=== PATIENT | female | born 1945 | race Caucasian/White ===

== ENCOUNTER 2017-01-25 19:58 | Inpatient (IN) | payer MEDICARE, MEDICAID ==
[~2017-01-25] VITALS: Ht 162.6 cm; Wt 73.7 kg
[~2017-01-25 19:58] MED LIST: ACET-461 PO; ACHD5005 PO; ALBU17AE3 IH; ALBU2.5V4 IH; ALBU2.5V52 INH; ALBU8.5H2; ALBU8.5H2 INH; ASCO-262 PO; ASP325T PO; AZIT250T PO; BACL10TA PO; BENZ100C18 PO; BISM262O27 PO; BUDE6HFA INH; CALCIUM PO; CEPH-507 PO; CLC500CT PO; CRAN1TAB5 PO; DOXY100C2 PO; FLC100T1 PO; FLUT1DIS26 IH; FLUT1DIS27 IH; FLUT9.9S; GABA-486 PO; GBPN100C PO; HYDR-757 PO; HYDR12.56 PO; IPRA3AMP11 INH; KETO-22 PO; LEVO500T69 PO; LEVO500T78 PO; LOPE2CAP PO; LORA10TA7 PO; LVF500T PO; METH40VI2 IV; METO-333 PO; METO25TA2 PO; MULT-35 PO; MULT-963 PO; NAPR-243 PO; NAPR-689 PO; NEBU1EAC10 MC; OMEP20CA12 PO; OXYB5TAB9 PO; PHEN200T27 PO; PIPE4.5V IV; PIPERACILLIN/TAZOBACTAM 4.5 GM/NS100 ML IVPB IV ONE; PIPERACILLIN/TAZOBACTAM 4.5 GM/NS100 ML IVPB IV SCH; PRED20TA PO; PROBIOTICS PO; TRAM50TA2 PO; TRIM100T PO; TYLENOL 500 MG PO
[2017-01-25] MEDS ORDERED: NS IV 1000 ML 1,000 ML IV ONE (20:08)
--- NOTE | 2017-01-25 20:13 | ED Chest Pain ---
General Chief Complaint: Chest Pain Stated Complaint: CHEST PAIN SOA Source: patient (LIMITED HISTORIAN DUE TO EXPRESSIVE APHASIA), EMS, assisted records, old records History of Present Illness Time seen by provider: 19:58 Initial Comments PT ARRIVES VIA EMS FROM VIA [facility] [place] PT HAS BEEN SHORT OF BREATH ALL DAY BEGAN HAVING CHEST PAIN 20 MINUTES PRIOR TO ARRIVAL--POINTS TO MID CHEST AREA OF PAIN HEART RATE IN 150'S, O2 SATS 95% ON ROOM AIR, BP IN 90'S/70'S PT TOOK 325 MG ASA THIS AM, NO NTG GIVEN DUE TO LOW BP TEMP IS 100.5 ON ARRIVAL HERE PT STATES SHE HAS HAD A COUGH NO OTHER INFORMATION IS OBTAINABLE PCP: DR. CARPENTER Allergies and Home Medications Allergies Coded Allergies: levofloxacin (Verified Allergy, Mild, 08/14/16) cephalexin (Verified Allergy, Unknown, 08/14/16) menthol (Verified Allergy, Unknown, RASH, 01/26/17) zinc oxide (Unverified Adverse Reaction, Intermediate, 03/22/14) rash-from calmoseptine Home Medications Acetaminophen 500 Mg Tablet, 1,000 MG PO BID, (Reported) TAKES 2 (500MG) TABLETS Albuterol Sulfate 2.5 Mg/3 Ml Vial.neb, 2.5 MG IH Q6H PRN for DYSPENIA/ CONGESTION, (Reported) Ascorbate Calcium 500 Mg Tablet, 500 MG PO DAILY, #30 Prescribed by: JERARDO ARRIAGA on 08/28/16 1006 Aspirin 325 Mg Tab, 325 MG PO DAILY, (Reported) Baclofen 10 Mg Tablet, 10 MG PO TID, #60 Prescribed by: MAE HUERTAS on 09/03/168 Bismuth Subsalicylate 262 Mg/15 Ml Oral.susp, 1 TBS PO Q4H PRN for STOMACH UPSET , (Reported) Cranberry Conc/C/Bacill Coag 1 Each Tablet, 1 EACH PO BID, #60 Prescribed by: JERARDO ARRIAGA on 08/28/16 1006 Fluticasone Propionate 9.9 Ml Norris.susp, 1 SPRAY NA BID, (Reported) Fluticasone/Salmeterol 1 Each Blst.w.dev, 1 PUFF IH BID, (Reported) Gabapentin 100 Mg Capsule, 100 MG PO HS, (Reported) Loperamide HCl 2 Mg Capsule, 2 MG PO PRN PRN for DIARRHEA, (Reported) Loratadine 10 Mg Tablet, 10 MG PO DAILY, (Reported) Metoprolol Tartrate 25 Mg Tablet, 25 MG PO BID, (Reported) Multivitamin 1 Each Tablet, 1 TAB PO DAILY, (Reported) Tramadol HCl 50 Mg Tablet, 50 MG PO BID, #60 Prescribed by: MAE HUERTAS on 09/03/16 2148 Tramadol Hcl 50 Mg Tablet, 50 MG PO 1200,2000, (Reported) Trimethoprim 100 Mg Tablet, 100 MG PO HS, #30 Prescribed by: JERARDO ARRIAGA on 08/28/16 1006 Review of Systems Constitutional: No fever, other (VERY LIMITED) Respiratory: See HPI, Cough, Shortness of Air Cardiovascular: See HPI, Chest Pain Psychiatric/Neurological: Pre-Existing Deficit, Other (PT IS S/P CVA WITH EXPRESSIVE APHASIA, 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) Past Dnaiasa-Ncwsgv-Qwjwgx Hx Patient Social History Smoking Status: Unknown if Ever Smoked Former Smoker/When Quit: February 22, 2009 Recent Hopitalizations: Yes Immunizations Up To Date Tetanus Booster (TDap): More than 5yrs PED Vaccines UTD: Yes Date of Pneumonia Vaccine: March 13, 2013 Date of Influenza Vaccine: Jul 11, 2016 Seasonal Allergies Seasonal Allergies: Yes Surgeries HX Surgeries: Yes (abd adhesion removal surgery, LEFT CAROTID ENDARTERECTOMY) Surgeries: Abdominal, Vascular Surgery Respiratory Hx Respiratory Disorders: Yes Respiratory Disorders: Asthma, Chronic Bronchitis, COPD Cardiovascular Hx Cardiac Disorders: Yes (left carotid endarterectomy) Cardiac Disorders: Heart Attack, Hypertension, Peripheral Vascular Neurological Hx Neurological Disorders: Yes (CVA WITH RIGHT SIDED WEAKNESS, 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,WITH EXPRESSIVE APHASIA AND DYSPHAGIA , MEMORY PROBLEMS) Neurological Disorders: Dementia (?), Stroke Reproductive System Hx Reproductive Disorders: No Female Reproductive Disorders: Denies Genitourinary Hx Genitourinary Disorders: Yes (INCONTINENT) Genitourinary Disorders: Bladder Infection, UTI-Chronic Gastrointestinal Hx Gastrointestinal Disorders: Yes (DYSPHAGIA) Gastrointestinal Disorders: Chronic Diarrhea Musculoskeletal Hx Musculoskeletal Disorders: Yes (FALLS, LEFT SIDE WEAKNESS FROM CVA WITH RIGHT ARM/HAND CONTRACTURES) Musculoskeletal Disorders: Arthritis, Chronic Back Pain, Fractures, Contracture Endocrine Hx Endocrine Disorders: Yes Endocrine Disorders: Diabetes, Non-Insulin dep HEENT HX ENT Disorders: Yes (DYSPHAGIA) Loss of Vision: Denies Hearing Impairment: Hard of Hearing Cancer Hx Cancer: No Psychosocial Hx Psychiatric Problems: Yes Behavioral Health Disorders: Depression Integumentary HX Skin/Integumentary Disorder: Yes (SKIN BREAKDOWN TO ROSIO AREA/GROIN/INNER THIGHS/BUTTOCKS) Skin/Integumentary Disorders: Recent Skin Changes Blood Transfusions Hx Blood Disorders: No Family Medical History Family Medial History: Cancer 19 MOTHER Family history: Diabetes mellitus 19 MOTHER Myocardial infarction 19 FATHER No Family History of: Abdominal aortic aneurysm Alcoholism Aphasia Cancer of colon Cataract Chest pain Congenital heart disease Congestive heart failure Cystic fibrosis Dementia Dysphagia Family history: Allergy Family history: Alzheimer's disease Family history: Arthritis Family history: Asthma Family history: Breast disease Family history: Cardiovascular disease Family history: Coronary thrombosis Family history: Gastrointestinal disease Family history: Glaucoma Family history: Hypertension Family history: Osteoporosis Family history: Thyroid disorder Headache Hearing loss Heart disease Hereditary disease History of - anemia History of - disorder History of - respiratory disease History of drug abuse Human immunodeficiency virus (HIV) seropositivity Hypercholesterolemia Infertile Kidney disease Malignant neoplasm of lung Parkinson's disease Prostate cancer Psychotic disorder Seizure disorder Stroke Tuberculosis Visual impairment Physical Exam Vital Signs Vital Sign - Last 12Hours 01/25/17 19:58 Temp 100.3 Pulse 135 B/P (MAP) 114/83 O2 Delivery Nasal Cannula O2 Flow Rate 2.00 Capillary Refill : General Appearance: No Apparent Distress, WD/WN HEENT: PERRL/EOMI, Other (RIGHT FACIAL DROOP) Neck: Full Range of Motion, Normal Inspection, Non Tender, Supple Respiratory: Normal Breath Sounds (BUT DIMINISHED IN BASES), No Accessory Muscle Use, No Respiratory Distress Cardiovascular: No JVD, No Murmur, Normal Peripheral Pulses, Tachycardia Gastrointestinal: Normal Bowel Sounds, No Organomegaly, No Pulsatile Mass, Non Tender, Soft Extremity: Normal Capillary Refill, Non Tender, Pedal Edema (TRACE BILATERALLY) Neurologic/Psychiatric: Alert, Normal Mood/Affect, Aphasia (EXPRESSIVE), Other (RIGHT FACIAL DROOP, RIGHT ARM/HAND CONTRACTURES AND RIGHT SIDED WEAKNESS) Skin: Normal Color, Warm/Dry, Other (ROSIO AREA/ GROIN AND INNER THIGHS AND BUTTOCKS WITH SKIN BREAKDOWN/EXCORIATION) Focused Exam Lactic Acid Level Laboratory Tests Test 01/25/17 20:25 Lactic Acid Level 1.99 MMOL/L (0.50-2.00) Progress/Results/Core Measures Results/Orders Lab Results Laboratory Tests Test 01/25/17 20:25 01/25/17 20:40 01/25/17 21:34 Range/Units Prothrombin Time 13.7 12.2-14.7 SEC INR Comment 1.1 0.8-1.4 Activated Partial Thromboplast Time 29 24-35 SEC Sodium Level 137 135-145 MMOL/L Potassium Level 4.3 3.6-5.0 MMOL/L Chloride Level 102 98-107 MMOL/L Carbon Dioxide Level 23 21-32 MMOL/L Anion Gap 12 5-14 MMOL/L Blood Urea Nitrogen 14 7-18 MG/DL Creatinine 0.94 0.60-1.30 MG/DL Estimat Glomerular Filtration Rate 59 BUN/Creatinine Ratio 15 Glucose Level 136 H 70-105 MG/DL Lactic Acid Level 1.99 0.50-2.00 MMOL/L Calcium Level 9.0 8.5-10.1 MG/DL Magnesium Level 1.8 1.8-2.4 MG/DL Total Bilirubin 0.4 0.1-1.0 MG/DL Aspartate Amino Transf (AST/SGOT) 24 5-34 U/L Alanine Aminotransferase (ALT/SGPT) 18 0-55 U/L Alkaline Phosphatase 87 40-136 U/L Total Creatine Kinase 42 29-168 U/L Creatine Kinase MB 0.9 <6.6 NG/ML Troponin I < 0.30 <0.30 NG/ML Total Protein 7.8 6.4-8.2 G/DL Albumin 3.5 3.2-4.5 G/DL TSH [place] Testing 0.77 0.35-4.94 UIU/ML White Blood Count 14.9 H 4.3-11.0 10^3/uL Red Blood Count 4.59 4.35-5.85 10^6/uL Hemoglobin 12.9 11.5-16.0 G/DL Hematocrit 41 35-52 % Mean Corpuscular Volume 89 80-99 FL Mean Corpuscular Hemoglobin 28 25-34 PG Mean Corpuscular Hemoglobin Concent 32 32-36 G/DL Red Cell Distribution Width 15.6 H 10.0-14.5 % Platelet Count 246 130-400 10^3/uL Mean Platelet Volume 11.6 H 7.4-10.4 FL Neutrophils (%) (Auto) 80 H 42-75 % Lymphocytes (%) (Auto) 4 L 12-44 % Monocytes (%) (Auto) 14 H 0-12 % Eosinophils (%) (Auto) 2 0-10 % Basophils (%) (Auto) 0 0-10 % Neutrophils # (Auto) 12.0 H 1.8-7.8 X 10^3 Lymphocytes # (Auto) 0.6 L 1.0-4.0 X 10^3 Monocytes # (Auto) 2.1 H 0.0-1.0 X 10^3 Eosinophils # (Auto) 0.2 0.0-0.3 10^3/uL Basophils # (Auto) 0.0 0.0-0.1 10^3/uL Neutrophils % (Manual) 85 % Lymphocytes % (Manual) 3 % Monocytes % (Manual) 8 % Eosinophils % (Manual) 3 % Basophils % (Manual) 0 % Band Neutrophils 1 % Blood Morphology Comment NORMAL Urine Color YELLOW Urine Clarity CLEAR Urine pH 6 5-9 Urine Specific [place] 1.010 L 1.016-1.022 Urine Protein 1+ H NEGATIVE Urine Glucose (UA) NEGATIVE NEGATIVE Urine Ketones NEGATIVE NEGATIVE Urine Nitrite POSITIVE H NEGATIVE Urine Bilirubin NEGATIVE NEGATIVE Urine Urobilinogen NORMAL NORMAL MG/DL Urine Leukocyte Esterase 2+ H NEGATIVE Urine RBC (Auto) 1+ H NEGATIVE Urine RBC 0-2 /HPF Urine WBC 5-10 H /HPF Urine Squamous Epithelial Cells 2-5 /HPF Urine Crystals NONE /LPF Urine Bacteria MODERATE H /HPF Urine Casts NONE /LPF Urine Mucus NEGATIVE /LPF Urine Culture Indicated YES Micro Results Microbiology 01/25/17 Influenza Types A,B Antigen (RAYNA) - Final, Complete My Orders Orders - JOE AGARWAL DO Saline Lock/Iv-Start (01/25/17 20:08) Ekg Tracing (01/25/17 20:08) O2 (01/25/17 20:08) Monitor-Rhythm Ecg Trace Only (01/25/17 20:08) BNP (01/25/17 20:08) Cbc With Automated Diff (01/25/17 20:08) Comprehensive Metabolic Panel (01/25/17 20:08) Creatine Kinase (01/25/17 20:08) Creatine Kinase Mb (01/25/17 20:08) Magnesium (01/25/17 20:08) Protime With Inr (01/25/17 20:08) Partial Thromboplastin Time (01/25/17 20:08) Thyroid Analyzer (01/25/17 20:08) Troponin I (01/25/17 20:08) Ua Culture If Indicated (01/25/17 20:08) Chest 1 View, Ap/Pa Only (01/25/17 20:08) Saline Lock/Iv-Start (01/25/17 20:08) Ns Iv 1000 Ml (Sodium Chloride 0.9%) (01/25/17 20:08) Lactic Acid Analyzer (01/25/17 20:12) Blood Culture (01/25/17 20:12) Influenza A And B Antigens (01/25/17 20:12) Acetaminophen Tablet (Tylenol Tablet) (01/25/17 20:15) Manual Differential (01/25/17 20:40) Urine Culture (01/25/17 21:34) Medications Given in ED Current Medications Medications Dose Ordered Sig/Naga Route Start Time Stop Time Status Last Admin Dose Admin Acetaminophen 1,000 mg ONCE ONCE PO 01/25/17 20:15 01/25/17 20:16 DC 01/25/17 20:43 1,000 MG Sodium Chloride 1,000 ml @ 0 mls/hr Q0M ONCE IV 01/25/17 20:08 01/25/17 20:10 DC 01/25/17 20:43 1,000 MLS/HR Vital Signs/I&O Vital Sign - Last 12Hours 01/25/17 01/25/17 01/25/17 19:58 19:58 20:43 Temp 100.3 100.3 Pulse 135 B/P (MAP) 114/83 O2 Delivery Nasal Cannula O2 Flow Rate 2.00 Progress Note : Progress Note NO DETERIORATION IN PT'S CONDITION DURING ER STAY BP > 95 SYSTOLIC AND HEART RATE DOWN TO 110'S PRIOR TO ADMIT TO FLOOR O2 SATS REMAINED IN UPPER 90'S NO C/O CHEST PAIN OR DYSPNEA DURING ER STAY, NO COUGH NOTED. ECG Initial ECG Impression Time: 20:03 Initial ECG Rate: 131 Initial ECG Rhythm: S.Tach Diagnostic Imaging Comments CXR--CHRONIC INTERSTITIAL CHANGES, NO ACUTE PROCESS, PER RADIOLOGIST REPORT @ 2053 Reviewed: Reviewed by Me Departure Communication Progress Notes 2199--PAGED DR. FLORES [id number]--SPOKE WITH DR. FLORES, ACCEPTS PT FOR ADMIT. ORDERS NOTED. Impression Impression: Primary Impression: Sepsis Additional Impressions: Chest pain Urinary tract infection Bronchitis SKIN BREAKDOWN IN ROSIO AREA, GROIN AND BUTTOCKS HX OF CVA WITH RIGHT SIDE WEAKNESS AND EXPRESSIVE APHASIA AND DYSPHAGIA Disposition: 09 ADMITTED INPATIENT Condition: Stable Decision to Admit Reason: Admit from ER (General) Decision to Admit/Date: Jan 25, 2017 Time/Decision to Admit Time: 22:00 Departure-Patient Inst. Referrals: RIP CARPENTER MD (PCP/Family) Primary Care Physician JOE AGARWAL DO Jan 25, 2017 20:12
[2017-01-25] MEDS ORDERED: ACETAMINOPHEN 500 MG TAB (TYLENOL) PO ONE (20:15)
--- NOTE | 2017-01-25 20:52 | Diagnostic Imaging Report ---
INDICATION: Chest pain and shortness of breath Frontal chest obtained at 8:20 p.m. and compared with 08/29/16. Heart is borderline in size. There are chronic appearing increased interstitial markings. There is no acute consolidation or pneumothorax or pleural fluid. IMPRESSION: Chronic appearing increased interstitial markings. No acute consolidation or pneumothorax or pleural fluid. Dictated by: Dictated on workstation # [id number]
[2017-01-25 20:54] LABS: BASOPHILS % (AUTO) 0 % (0-10); EOSINOPHILS # (AUTO) 0.2 10^3/uL (0.0-0.3); EOSINOPHILS % (AUTO) 2 % (0-10); LYMPHOCYTES # (AUTO) 0.6 X 10^3 (1.0-4.0); LYMPHOCYTES % (AUTO) 4 % (12-44); MEAN CORPUSCULAR HEMOGLOBIN 28 PG (25-34); MEAN CORPUSCULAR HGB CONC 32 G/DL (32-36); MEAN CORPUSCULAR VOLUME 89 FL (80-99); MEAN PLATELET VOLUME 11.6 FL (7.4-10.4); MONOCYTES # (AUTO) 2.1 X 10^3 (0.0-1.0); MONOCYTES % (AUTO) 14 % (0-12); NEUTROPHILS % (AUTO) 80 % (42-75); PLATELET COUNT 246 10^3/uL (130-400); RED BLOOD COUNT 4.59 10^6/uL (4.35-5.85); RED CELL DISTRIBUTION WIDTH 15.6 % (10.0-14.5); WHITE BLOOD COUNT 14.9 10^3/uL (4.3-11.0)
[2017-01-25 21:05] LABS: INR 1.1 (0.8-1.4); PROTHROMBIN TIME PATIENT 13.7 SEC (12.2-14.7)
[2017-01-25 21:08] LABS: BAND NEUTROPHILS 1 %; BASOPHILS % (MANUAL) 0 %; EOSINOPHILS % (MANUAL) 3 %; LYMPHOCYTES % (MANUAL) 3 %; NEUTROPHILS % (MANUAL) 85 %
[2017-01-25 21:15] LABS: ALANINE AMINOTRANSFERASE 18 U/L (0-55); ALBUMIN 3.5 G/DL (3.2-4.5); ANION GAP 12 MMOL/L (5-14); ASPARTATE AMINO TRANSFERASE 24 U/L (5-34); BILIRUBIN,TOTAL 0.4 MG/DL (0.1-1.0); BLOOD UREA NITROGEN 14 MG/DL (7-18); BUN/CREATININE RATIO 15; CARBON DIOXIDE 23 MMOL/L (21-32); CHLORIDE 102 MMOL/L (98-107); CREATINE KINASE 42 U/L (29-168); CREATININE SERUM 0.94 MG/DL (0.60-1.30); GFR ESTIMATED 59; GLUCOSE 136 MG/DL (70-105); MAGNESIUM 1.8 MG/DL (1.8-2.4); POTASSIUM 4.3 MMOL/L (3.6-5.0); SODIUM 137 MMOL/L (135-145); TOTAL PROTEIN 7.8 G/DL (6.4-8.2)
[2017-01-25 21:35] LABS: TROPONIN I < 0.30 NG/ML (<0.30)
[2017-01-25 21:40] LABS: BILIRUBIN,URINE NEGATIVE (NEGATIVE); KETONES,URINE NEGATIVE (NEGATIVE); LEUKOCYTE ESTERASE ,URINE 2+ (NEGATIVE); NITRITE,URINE POSITIVE (NEGATIVE); PH,URINE 6 (5-9); PROTEIN,URINE 1+ (NEGATIVE); UROBILINOGEN,URINE NORMAL (NORMAL)
[2017-01-25] MEDS ORDERED: VANCOMYCIN INJECTION 1,000 MG in NS (IVPB) 250 ML IV ONE (22:15)
[2017-01-25] MEDS ORDERED: D5 1/2 NS 1000 ML IV SOLUTION 1,000 ML IV ONE (23:28)
[2017-01-25 23:34] VITALS: BP 151/74
[2017-01-25 23:45] VITALS: BP 115/87
[2017-01-26] VITALS (46 sets, daily range): BP systolic 95–167; BP diastolic 41–79
[2017-01-26] MEDS: D5 1/2 NS 1000 ML IV SOLUTION 1,000 ML IV SCH ×3 (00:30→16:30)
[2017-01-26] MEDS: AZITHROMYCIN 500 MG/NS 250 ML IVPB IV SCH ×4 (00:31→21:27)
[2017-01-26] MEDS ORDERED: RT-ALBUTEROL/IPRATROPIUM 3 ML (DUONEB) VIAL ONE (02:48)
[2017-01-26 03:13] LABS: BASOPHILS % (AUTO) 0 % (0-10); EOSINOPHILS # (AUTO) 0.1 10^3/uL (0.0-0.3); EOSINOPHILS % (AUTO) 1 % (0-10); LYMPHOCYTES # (AUTO) 1.2 X 10^3 (1.0-4.0); LYMPHOCYTES % (AUTO) 12 % (12-44); MEAN CORPUSCULAR HEMOGLOBIN 28 PG (25-34); MEAN CORPUSCULAR HGB CONC 31 G/DL (32-36); MEAN CORPUSCULAR VOLUME 89 FL (80-99); MEAN PLATELET VOLUME 11.6 FL (7.4-10.4); MONOCYTES # (AUTO) 2.2 X 10^3 (0.0-1.0); MONOCYTES % (AUTO) 23 % (0-12); NEUTROPHILS # (AUTO) 6.4 X 10^3 (1.8-7.8); NEUTROPHILS % (AUTO) 65 % (42-75); PLATELET COUNT 225 10^3/uL (130-400); RED BLOOD COUNT 3.97 10^6/uL (4.35-5.85); RED CELL DISTRIBUTION WIDTH 15.4 % (10.0-14.5)
[2017-01-26] MEDS ORDERED: RT-ALBUTEROL/IPRATROPIUM 3 ML (DUONEB) VIAL INH PRN (03:15)
[2017-01-26 03:34] LABS: MYOGLOBIN SERUM 59.9 NG/ML (10.0-92.0)
[2017-01-26 03:54] LABS: ALANINE AMINOTRANSFERASE 14 U/L (0-55); ANION GAP 10 MMOL/L (5-14); ASPARTATE AMINO TRANSFERASE 21 U/L (5-34); BILIRUBIN,TOTAL 0.4 MG/DL (0.1-1.0); BLOOD UREA NITROGEN 9 MG/DL (7-18); BUN/CREATININE RATIO 11; CALCIUM 8.3 MG/DL (8.5-10.1); CARBON DIOXIDE 24 MMOL/L (21-32); CHLORIDE 107 MMOL/L (98-107); CHOLESTEROL 129 MG/DL (< 200); CREATININE SERUM 0.81 MG/DL (0.60-1.30); DIRECT LDL 72 MG/DL (1-129); GFR ESTIMATED > 60; GLUCOSE 127 MG/DL (70-105); MAGNESIUM 1.7 MG/DL (1.8-2.4); POTASSIUM 3.7 MMOL/L (3.6-5.0); SODIUM 141 MMOL/L (135-145); TOTAL PROTEIN 6.7 G/DL (6.4-8.2); TRIGLYCERIDES 104 MG/DL (<150); VLDL CHOLESTEROL 21 MG/DL (5-40)
[2017-01-26] MEDS: PIPERACILLIN SODIUM/TAZOBACTAM 4.5 GM in NS (IVPB) 100 ML IV SCH ×3 (06:22→22:56)
[2017-01-26] MEDS: RT-ALBUTEROL/IPRATROPIUM 3 ML (DUONEB) VIAL INH SCH ×4 (06:59→18:46)
[2017-01-26] MEDS: ASPIRIN E.C. 325 MG (ECOTRIN) TABLET PO SCH (08:12)
[2017-01-26] MEDS: ACETAMINOPHEN 500 MG TAB (TYLENOL) PO PRN ×2 (08:12→19:48)
[2017-01-26] MEDS ORDERED: MENTHOL/ZINC OXIDE (CALMOSEPTINE) 113 GM TUBE TOP SCH (09:00)
[2017-01-26] MEDS: morphine INJ 4 MG/ML 1 ML (VIAL/SYRINGE) IV PRN ×2 (09:35→16:30)
--- NOTE | 2017-01-26 10:12 | Diagnostic Imaging Report ---
INDICATION: Chest pain, sepsis and bronchitis. Comparison is made with prior examination from 01/25/17. FINDINGS: There is cardiomegaly. There is some venous congestion. There are patchy bibasilar infiltrates, left greater than right. There is no pleural effusion or pneumothorax. Mediastinum is unremarkable. IMPRESSION: Patchy bibasilar infiltrates, left greater than right. Cardiomegaly and mild central pulmonary venous congestion Dictated by: Dictated on workstation # [id number]
[2017-01-26] MEDS: guaiFENesin/DM (ROBITUSSIN DM) 10 ML UDC PO PRN ×3 (10:26→23:18)
--- NOTE | 2017-01-26 10:53 | History & Physical-Hospitalist ---
HPI History of Present Illness: HPI/Chief Complaint Mrs. Amador is a frail 71-year-old white female who was sent from the [facility] with fever cough tachycardia and chest pain. She is unable to give history secondary to expressive aphasia from an old left sided CVA. Apparently her heart rate was as high as 150. Upon arrival to the emergency room and after fluids she was no one teen to 120 range in sinus tachycardia. There was questionable pulmonary mass on chest x-ray so she was sent for a CT scan revealed pleural plaquing with no acute infiltrates. She was nitrite positive with pyuria and bacteriuria. She was admitted meeting criteria for severe sepsis for urinary tract infection with likely viral bronchitis. Date Seen 01/26/17 Attending Physician Rip Carpenter MD PCP Rip Carpenter MD Referring Physician Date of Admission Jan 25, 2017 at 22:00 Home Medications & Allergies Home Medications Reviewed patient Home Medication Reconciliation Form Allergies Allergies Coded Allergies levofloxacin (Verified Allergy, Mild, 08/14/16) cephalexin (Verified Allergy, Unknown, 08/14/16) menthol (Verified Allergy, Unknown, RASH, 01/26/17) zinc oxide (Unverified Adverse Reaction, Intermediate, 03/22/14) rash-from calmoseptine Past Bdnxjxp-Tclvmr-Jrinwc Hx Patient Social History Alcohol Use: Denies Use Recreational Drug Use: No Smoking Status: Unknown if Ever Smoked Former smoker/When Quit: February 22, 2009 Physical Abuse Screen: No Sexual Abuse: No Recent Foreign Travel: No Contact w/other who traveled: No Recent Hopitalizations: Yes Recent Infectious Disease Expo: No Immunizations Up To Date Tetanus Booster (TDap): More than 5yrs Date of Pneumonia Vaccine: March 13, 2013 Date of Influenza Vaccine: Jul 11, 2016 Seasonal Allergies Seasonal Allergies: Yes Surgeries HX Surgeries: Yes (abd adhesion removal surgery, LEFT CAROTID ENDARTERECTOMY) Surgeries: Abdominal, Vascular Surgery Respiratory Hx Respiratory Disorders: Yes Respiratory Disorders: Asthma Cardiovascular Hx Cardiovascular Disorders: Yes (left carotid endarterectomy) Cardiac Disorders: Heart Attack, Hypertension, Peripheral Vascular Neurological Hx Neurological Disorders: Yes (CVA WITH RIGHT SIDED WEAKNESS, 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,WITH EXPRESSIVE APHASIA AND DYSPHAGIA , MEMORY PROBLEMS) Neurological Disorders: Dementia (?), Stroke Reproductive System Hx Reproductive Disorders: No Female Reproductive Disorders: Denies Genitourinary Hx Genitourinary Disorders: Yes (INCONTINENT) Genitourinary Disorders: Bladder Infection, UTI-Chronic Gastrointestinal Hx Gastrointestinal Disorders: Yes (DYSPHAGIA) Gastrointestinal Disorders: Chronic Diarrhea Musculoskeletal Hx Musculoskeletal Disorders: Yes (FALLS, LEFT SIDE WEAKNESS FROM CVA WITH RIGHT ARM/HAND CONTRACTURES) Musculoskeletal Disorders: Arthritis, Chronic Back Pain, Fractures, Contracture Endocrine Hx Endocrine Disorders: Yes Endocrine Disorders: Diabetes, Non-Insulin dep HEENT HX ENT Disorders: Yes (DYSPHAGIA) Loss of Vision: Denies Hearing Impairment: Hard of Hearing Cancer Hx Cancer: No Psychosocial Hx Psychiatric Problems: Yes Behavioral Health Disorders: Depression Integumentary HX Skin/Integumentary Disorder: Yes (SKIN BREAKDOWN TO ROSIO AREA/GROIN/INNER THIGHS/BUTTOCKS) Skin/Integumentary Disorders: Recent Skin Changes Blood Transfusions Hx Blood Disorders: No Family Medical History Family Hx: Cancer 19 MOTHER Family history: Diabetes mellitus 19 MOTHER Myocardial infarction 19 FATHER No Family History of: Abdominal aortic aneurysm Alcoholism Aphasia Cancer of colon Cataract Chest pain Congenital heart disease Congestive heart failure Cystic fibrosis Dementia Dysphagia Family history: Allergy Family history: Alzheimer's disease Family history: Arthritis Family history: Asthma Family history: Breast disease Family history: Cardiovascular disease Family history: Coronary thrombosis Family history: Gastrointestinal disease Family history: Glaucoma Family history: Hypertension Family history: Osteoporosis Family history: Thyroid disorder Headache Hearing loss Heart disease Hereditary disease History of - anemia History of - disorder History of - respiratory disease History of drug abuse Human immunodeficiency virus (HIV) seropositivity Hypercholesterolemia Infertile Kidney disease Malignant neoplasm of lung Parkinson's disease Prostate cancer Psychotic disorder Seizure disorder Stroke Tuberculosis Visual impairment Review of Systems Constitutional: see HPI Physical Exam Physical Exam Vital Signs Vital Sign - Last 12Hours 01/25/17 01/25/17 19:58 23:15 Temp 100.3 Pulse 135 Resp 20 B/P (MAP) 114/83 Pulse Ox 94 O2 Delivery Nasal Cannula O2 Flow Rate 2.00 Capillary Refill : Less Than 3 Seconds General Appearance: Anxious, Chronically ill, Mild Distress HEENT: Other (mild conjunctival injection noted bilaterally no purulent material noted) Respiratory: Lungs Clear, Normal Breath Sounds, No Accessory Muscle Use, No Respiratory Distress Cardiovascular: No Edema, No Gallop, No JVD, Normal Peripheral Pulses, Tachycardia, Other (soft 1 to 2/6 systolic ejection murmur heard best left lower sternal border) Gastrointestinal: Normal Bowel Sounds, No Organomegaly, No Pulsatile Mass, Soft , Other (mild epigastric as well as suprapubic discomfort to palpation without rebound or guarding) Extremity: Normal Capillary Refill, Swelling (1+ pedal edema.) Neurologic/Psychiatric: Aphasia (expressive) Results Results/Procedures Lab Laboratory Tests 01/25/17 20:25 01/25/17 20:40 01/26/17 03:05 Assessment/Plan Admission Diagnosis 1. Severe sepsis likely urinary tract infection in addition to acute viral bronchitis. Influences still going around so we'll need to perform nasal swab to rule out. Continue IV fluids and antibiotics. Urine culture pending. 2. Sinus tachycardia secondary to number 1 continue IV fluids. 3. Past left sided CVA with right hemiparesis and expressive aphasia Copy Copies To 1: RIP CARPENTER MD Clinical Quality Measures AMI/AHF: ASA po Prior to arrival: Yes (ASA THIS MORNING) DVT/VTE Risk/Contraindication: Risk Factor Score Per Nursin RFS Level Per Nursing on Admit: 4+=Very High GEORGI FLORES MD Jan 26, 2017 10:53
[2017-01-26] MEDS ORDERED: PROM12.565 RC (16:25)
[2017-01-26] MEDS: BACLOFEN 10 MG (LIORESAL) TAB PO SCH (20:47)
[2017-01-26] MEDS: meTOprolol TARTRATE 25 MG (LOPRESSOR) TABLET PO SCH (20:48)
[2017-01-26] MEDS ORDERED: GABAPENTIN 100 MG (NEURONTIN) CAP PO ONE (21:00)
[2017-01-26] MEDS ORDERED: ONDANSETRON 4 MG/2 ML (SDV) Z0FRAN ONE (21:54)
[2017-01-26] MEDS ORDERED: ONDANSETRON 4 MG/2 ML (SDV) Z0FRAN IV PRN (22:00)
[2017-01-26] MEDS ORDERED: ONDANSETRON 4 MG/2 ML (SDV) Z0FRAN IVP PRN (22:00)
[2017-01-27] VITALS (10 sets, daily range): BP systolic 113–140; BP diastolic 60–80
[2017-01-27] MEDS: D5 1/2 NS 1000 ML IV SOLUTION 1,000 ML IV SCH ×3 (00:49→20:40)
[2017-01-27 04:26] LABS: BASOPHILS % (AUTO) 0 % (0-10); EOSINOPHILS % (AUTO) 1 % (0-10); LYMPHOCYTES # (AUTO) 1.5 X 10^3 (1.0-4.0); LYMPHOCYTES % (AUTO) 22 % (12-44); MEAN CORPUSCULAR HEMOGLOBIN 28 PG (25-34); MEAN CORPUSCULAR HGB CONC 31 G/DL (32-36); MEAN CORPUSCULAR VOLUME 90 FL (80-99); MEAN PLATELET VOLUME 11.8 FL (7.4-10.4); MONOCYTES # (AUTO) 1.3 X 10^3 (0.0-1.0); MONOCYTES % (AUTO) 19 % (0-12); NEUTROPHILS % (AUTO) 58 % (42-75); PLATELET COUNT 171 10^3/uL (130-400); RED BLOOD COUNT 3.84 10^6/uL (4.35-5.85); RED CELL DISTRIBUTION WIDTH 15.8 % (10.0-14.5); WHITE BLOOD COUNT 6.8 10^3/uL (4.3-11.0)
[2017-01-27 04:47] LABS: ANION GAP 9 MMOL/L (5-14); BLOOD UREA NITROGEN 7 MG/DL (7-18); BUN/CREATININE RATIO 9; CALCIUM 7.7 MG/DL (8.5-10.1); CARBON DIOXIDE 21 MMOL/L (21-32); CHLORIDE 106 MMOL/L (98-107); CREATININE SERUM 0.81 MG/DL (0.60-1.30); GFR ESTIMATED > 60; GLUCOSE 102 MG/DL (70-105); MAGNESIUM 1.7 MG/DL (1.8-2.4); PHOSPHORUS 3.6 MG/DL (2.3-4.7); POTASSIUM 4.2 MMOL/L (3.6-5.0); SODIUM 136 MMOL/L (135-145)
[2017-01-27] MEDS: MAGNESIUM 1 GM/100 ML IVPB 100 ML IV SCH ×2 (05:53→06:54)
[2017-01-27] MEDS ORDERED: MAGNESIUM 1 GM/100 ML IVPB 100 ML IV SCH (06:00)
[2017-01-27] MEDS ORDERED: POTASSIUM CL 10MEQ/50ML IVPB 50 ML IV SCH (06:00)
[2017-01-27] MEDS ORDERED: KCL 20 MEQ TAB (K-DUR) PO SCH (06:00)
[2017-01-27] MEDS: PIPERACILLIN SODIUM/TAZOBACTAM 4.5 GM in NS (IVPB) 100 ML IV SCH ×2 (06:43→20:39)
[2017-01-27] MEDS: RT-ALBUTEROL/IPRATROPIUM 3 ML (DUONEB) VIAL INH SCH ×4 (06:50→21:27)
--- NOTE | 2017-01-27 07:01 | Pulmonary Consultation ---
History of Present Illness History of Present Illness Date of Consultation 01/27/17 06:56 Date of Admission History of Present Illness 71yo WF with hx of expressive aphasia, CVA from [facility] secondary to fever, cough, CP. Pt was found to have sinus tach upon ED admission with HR 150. IVF improved sinus tach. Pt was diagnosed with UTI and sepsis and admitted to ICU. I am consulted for ICU management. Allergies and Home Medications Allergies Coded Allergies: levofloxacin (Verified Allergy, Mild, 08/14/16) cephalexin (Verified Allergy, Unknown, 08/14/16) menthol (Verified Allergy, Unknown, RASH, 01/26/17) zinc oxide (Unverified Adverse Reaction, Intermediate, 03/22/14) rash-from calmoseptine Home Medications Acetaminophen 500 Mg Tablet, 1,000 MG PO BID, (Reported) TAKES 2 (500MG) TABLETS Albuterol Sulfate 2.5 Mg/3 Ml Vial.neb, 2.5 MG IH Q6H PRN for DYSPENIA/ CONGESTION, (Reported) Ascorbate Calcium 500 Mg Tablet, 500 MG PO DAILY, #30 Prescribed by: JERARDO ARRIAGA on 08/28/16 1006 Aspirin 325 Mg Tab, 325 MG PO DAILY, (Reported) Baclofen 10 Mg Tablet, 10 MG PO TID, #60 Prescribed by: MAE HUERTAS on 09/03/162147 Bismuth Subsalicylate 262 Mg/15 Ml Oral.susp, 1 TBS PO Q4H PRN for STOMACH UPSET , (Reported) Cranberry Conc/C/Bacill Coag 1 Each Tablet, 1 EACH PO BID, #60 Prescribed by: JERARDO ARRIAGA on 08/28/16 1006 Fluticasone Propionate 9.9 Ml [place].susp, 1 SPRAY NA BID, (Reported) Fluticasone/Salmeterol 1 Each Blst.w.dev, 1 PUFF IH BID, (Reported) Gabapentin 100 Mg Capsule, 100 MG PO HS, (Reported) Loperamide HCl 2 Mg Capsule, 2 MG PO PRN PRN for DIARRHEA, (Reported) Loratadine 10 Mg Tablet, 10 MG PO DAILY, (Reported) Metoprolol Tartrate 25 Mg Tablet, 25 MG PO BID, (Reported) Multivitamin 1 Each Tablet, 1 TAB PO DAILY, (Reported) Promethazine HCl 12.5 Mg Supp.rect, 25 MG RC Q4H, (Reported) Tramadol HCl 50 Mg Tablet, 50 MG PO BID, #60 Prescribed by: MAE HUERTAS on 09/03/162147 Tramadol Hcl 50 Mg Tablet, 50 MG PO 1199,1999, (Reported) Trimethoprim 100 Mg Tablet, 100 MG PO HS, #30 Prescribed by: JERARDO ARRIAGA on 08/28/16 1006 Past Jtdptkn-Gidfdi-Snjgwn Hx Patient Social History Alcohol Use: Denies Use Recreational Drug Use: No Smoking Status: Unknown if Ever Smoked Former Smoker/When Quit: February 22, 2009 Recent Foreign Travel: No Contact w/Someone Who Travel: No Recent Infectious Disease Expo: No Recent Hopitalizations: Yes Physical Abuse Screen: No Sexual Abuse: No Immunizations Up To Date Tetanus Booster (TDap): More than 5yrs PED Vaccines UTD: Yes Date of Pneumonia Vaccine: March 13, 2013 Date of Influenza Vaccine: Jul 11, 2016 Seasonal Allergies Seasonal Allergies: Yes Surgeries HX Surgeries: Yes (abd adhesion removal surgery, LEFT CAROTID ENDARTERECTOMY) Surgeries: Abdominal, Vascular Surgery Respiratory Hx Respiratory Disorders: Yes Respiratory Disorders: Asthma, Chronic Bronchitis, COPD Cardiovascular Hx Cardiac Disorders: Yes (left carotid endarterectomy) Cardiac Disorders: Heart Attack, Hypertension, Peripheral Vascular Neurological Hx Neurological Disorders: Yes (CVA WITH RIGHT SIDED WEAKNESS, 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,WITH EXPRESSIVE APHASIA AND DYSPHAGIA , MEMORY PROBLEMS) Neurological Disorders: Dementia (?), Stroke Reproductive System Hx Reproductive Disorders: No Female Reproductive Disorders: Denies Genitourinary Hx Genitourinary Disorders: Yes (INCONTINENT) Genitourinary Disorders: Bladder Infection, UTI-Chronic Gastrointestinal Hx Gastrointestinal Disorders: Yes (DYSPHAGIA) Gastrointestinal Disorders: Chronic Diarrhea Musculoskeletal Hx Musculoskeletal Disorders: Yes (FALLS, LEFT SIDE WEAKNESS FROM CVA WITH RIGHT ARM/HAND CONTRACTURES) Musculoskeletal Disorders: Arthritis, Chronic Back Pain, Fractures, Contracture Endocrine Hx Endocrine Disorders: Yes Endocrine Disorders: Diabetes, Non-Insulin dep HEENT HX ENT Disorders: Yes (DYSPHAGIA) Loss of Vision: Denies Hearing Impairment: Hard of Hearing Cancer Hx Cancer: No Psychosocial Hx Psychiatric Problems: Yes Behavioral Health Disorders: Depression Integumentary HX Skin/Integumentary Disorder: Yes (SKIN BREAKDOWN TO ROSIO AREA/GROIN/INNER THIGHS/BUTTOCKS) Skin/Integumentary Disorders: Recent Skin Changes Blood Transfusions Hx Blood Disorders: No Family Medical History Family Medial History: Cancer 19 MOTHER Family history: Diabetes mellitus 19 MOTHER Myocardial infarction 19 FATHER No Family History of: Abdominal aortic aneurysm Alcoholism Aphasia Cancer of colon Cataract Chest pain Congenital heart disease Congestive heart failure Cystic fibrosis Dementia Dysphagia Family history: Allergy Family history: Alzheimer's disease Family history: Arthritis Family history: Asthma Family history: Breast disease Family history: Cardiovascular disease Family history: Coronary thrombosis Family history: Gastrointestinal disease Family history: Glaucoma Family history: Hypertension Family history: Osteoporosis Family history: Thyroid disorder Headache Hearing loss Heart disease Hereditary disease History of - anemia History of - disorder History of - respiratory disease History of drug abuse Human immunodeficiency virus (HIV) seropositivity Hypercholesterolemia Infertile Kidney disease Malignant neoplasm of lung Parkinson's disease Prostate cancer Psychotic disorder Seizure disorder Stroke Tuberculosis Visual impairment Exam Exam Vital Signs Date Time Temp Pulse Resp B/P (MAP) Pulse Ox O2 Delivery O2 Flow Rate FiO2 01/27/17 06:00 102 26 136/80 97 Nasal Cannula 3.00 01/27/17 05:00 84 23 132/73 97 Nasal Cannula 3.00 01/27/17 04:00 99.3 86 9 140/78 98 Nasal Cannula 3.00 01/27/17 04:00 98 Nasal Cannula 3.00 01/27/17 03:00 84 23 122/67 99 Nasal Cannula 3.00 01/27/17 02:00 84 21 123/70 98 Nasal Cannula 3.00 01/27/17 01:00 86 21 120/70 97 Nasal Cannula 3.00 01/27/17 01:00 86 01/27/17 00:00 97 Nasal Cannula 3.00 01/27/17 00:00 99.0 89 17 113/65 97 Nasal Cannula 3.00 01/26/17 23:00 99.8 01/26/17 23:00 98 24 103/62 97 Nasal Cannula 3.00 01/26/17 22:00 112 19 118/68 95 Nasal Cannula 3.00 01/26/17 21:10 100.3 01/26/17 21:00 130 26 141/62 92 Nasal Cannula 3.00 01/26/17 20:53 100.3 01/26/17 20:53 100.3 01/26/17 20:00 93 Nasal Cannula 3.00 01/26/17 20:00 101.3 138 17 145/76 93 Nasal Cannula 3.00 01/26/17 19:48 101.3 01/26/17 19:00 138 28 167/79 92 Nasal Cannula 3.00 01/26/17 19:00 138 01/26/17 18:46 90 2.00 01/26/17 18:00 117 16 122/65 Nasal Cannula 2.00 01/26/17 17:00 122 26 138/56 92 Nasal Cannula 2.00 01/26/17 16:00 99.7 Nasal Cannula 2.00 01/26/17 16:00 97 Nasal Cannula 2.00 01/26/17 16:00 112 25 132/55 90 Nasal Cannula 2.00 01/26/17 15:03 99 2.00 01/26/17 15:00 109 8 125/60 96 Nasal Cannula 2.00 01/26/17 14:00 105 25 134/55 98 Nasal Cannula 2.00 01/26/17 13:00 112 01/26/17 13:00 108 21 120/52 94 Nasal Cannula 2.00 01/26/17 12:00 96 Nasal Cannula 2.00 01/26/17 12:00 105 19 97/45 Nasal Cannula 2.00 01/26/17 12:00 100.7 Nasal Cannula 2.00 01/26/17 11:14 2.00 01/26/17 11:00 121 17 95/41 Nasal Cannula 2.00 01/26/17 10:00 110 15 101/45 94 Nasal Cannula 2.00 01/26/17 09:00 137 32 112/53 92 Nasal Cannula 2.00 01/26/17 08:12 101.9 01/26/17 08:00 97 Nasal Cannula 2.00 01/26/17 08:00 101.9 135 22 140/59 97 Nasal Cannula 2.00 01/26/17 07:01 2.00 01/26/17 07:00 116 01/26/17 07:00 125 25 143/58 96 Nasal Cannula 2.00 I & O 01/27/17 07:00 Intake Total 1705 ml Output Total 1250 ml Balance 455 ml General Appearance: Anxious, Chronically ill, Mild Distress HEENT: Other (mild conjunctival injection noted bilaterally no purulent material noted) Neck: Full Range of Motion, Normal Inspection, Non Tender, Supple Respiratory: Lungs Clear, Normal Breath Sounds, No Accessory Muscle Use, No Respiratory Distress Cardiovascular: No Edema, No Gallop, No JVD, Normal Peripheral Pulses, Tachycardia, Other (soft 1 to 2/6 systolic ejection murmur heard best left lower sternal border) Capillary Refill: Less Than 3 Seconds Extremity: Normal Capillary Refill, Swelling (1+ pedal edema.) Neurologic/Psychiatric: Aphasia (expressive) Skin: Normal Color, Warm/Dry, Other (ROSIO AREA/ GROIN AND INNER THIGHS AND BUTTOCKS WITH SKIN BREAKDOWN/EXCORIATION) Results Lab Laboratory Tests 01/25/17 20:25 01/25/17 20:40 01/26/17 03:05 01/27/17 04:05 Assessment/Plan Assessment/Plan - Severe sepsis with UTI -Zosyn -PUlmonary edema - secondary to IVF -KVO IVF, lasix x 1 - 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 Will transfer to 4th floor. Clinical Quality Measures AMI/AHF: ASA po Prior to arrival: Yes (ASA THIS MORNING) DVT/VTE Risk/Contraindication: Risk Factor Score Per Nursin RFS Level Per Nursing on Admit: 4+=Very High CHRISTEN ALVARADO DO Jan 27, 2017 07:01
[2017-01-27] MEDS ORDERED: FUROSEMIDE 40 MG/4 ML INJ (LASIX) IVP NR (07:08)
--- NOTE | 2017-01-27 07:47 | Diagnostic Imaging Report ---
INDICATION: Sepsis. COMPARISON: 01/26/2017 FINDINGS: Single frontal radiographic view of the chest was obtained and demonstrates stable cardiac silhouette and pulmonary vasculature. Lungs show interval progression of prominence of the interstitium, as well as some patchy opacification of the right lung base. There is no large effusion on the left. No pneumothorax is seen on either side. Bony structures show no acute abnormalities. IMPRESSION: 1. Interval increased appearance to the pulmonary interstitium suspicious for developing interstitial pneumonia or edema. 2. Increased patchy opacification of the right lung base. Dictated by: Dictated on workstation # [id number]
[2017-01-27] MEDS: guaiFENesin/DM (ROBITUSSIN DM) 10 ML UDC PO PRN ×2 (08:01→13:47)
[2017-01-27] MEDS: BACLOFEN 10 MG (LIORESAL) TAB PO SCH ×3 (08:01→20:39)
[2017-01-27] MEDS: meTOprolol TARTRATE 25 MG (LOPRESSOR) TABLET PO SCH ×2 (08:01→20:39)
[2017-01-27] MEDS: ASPIRIN E.C. 325 MG (ECOTRIN) TABLET PO SCH (08:01)
[2017-01-27] MEDS ORDERED: CRAN1TAB6 PO (08:48)
[2017-01-27] MEDS ORDERED: ASCO-262 PO (08:48)
[2017-01-27] MEDS ORDERED: FLUT1AER INH (08:48)
[2017-01-27] MEDS ORDERED: PROM25SU44 RC (08:48)
[2017-01-27] MEDS ORDERED: FLUT16SP22 NS (08:48)
[2017-01-27] MEDS ORDERED: BACL10TA PO (08:48)
[2017-01-27] MEDS ORDERED: ONDA4TAB10 PO (08:48)
[2017-01-27] MEDS ORDERED: TRIM100T PO (08:48)
--- NOTE | 2017-01-27 11:41 | Diagnostic Imaging Report ---
INDICATION: PICC line FINDINGS: Left PICC catheter tip projects over the expected cavoatrial junction. 5 lobed interstitial opacities in the lungs are redemonstrated. The heart size upper limits unchanged. IMPRESSION: PICC line in good position lower SVC. 5 lobed interstitial opacities unchanged. Dictated by: Dictated on workstation # [id number]
--- NOTE | 2017-01-27 12:36 | Progress Note-Hospitalist ---
Standard Progress Note Progress Notes/Assess & Plan Date Seen 01/27/17 Diagnosis 1. Severe sepsis likely urinary tract infection in addition to acute viral bronchitis. Influences still going around so we'll need to perform nasal swab to rule out. Continue IV fluids and antibiotics. Urine culture pending. 2. Sinus tachycardia secondary to number 1 continue IV fluids. 3. Past left sided CVA with right hemiparesis and expressive aphasia Assess & Plan/Chief Complaint The patient is a 71-year-old white female resident of [facility]. She was sent here to the emergency room because of fever and cough and tachycardia. Examination in the emergency room showed her heart rate to be as high as 150. This responded to IV fluids. Urine was positive consistent with urinary tract infection. Her daughter states that this has been a common malady. She had a stroke several years ago and has speaks limited to one syllable words. There is a right hemiparesis as well. She is a previous smoker and stopped about one year ago. Physical exam: She is alert and interactive. Lungs are clear to auscultation, breath sounds are somewhat distant. CV is regular without tachycardia. Blood pressure is satisfactory. There is evidence of excoriation on her left upper arm. There is mild to moderate flexion contracturing at the right wrist and elbow. Impression: Sepsis/UTI. 2.COPD. 3.previous left hemispheric CVA with right hemiparesis and practical aphasia Plan: Transfer to floor. Continue IV antibiotics. Labs Laboratory Tests 01/25/17 20:25 01/25/17 20:40 01/26/17 03:05 01/27/17 04:05 LASHONDA RODRIGUEZ MD Jan 27, 2017 12:36
[2017-01-28] VITALS: BP 109/66
[2017-01-28 04:00] VITALS: BP 104/60
[2017-01-28] MEDS: PIPERACILLIN SODIUM/TAZOBACTAM 4.5 GM in NS (IVPB) 100 ML IV SCH ×2 (04:19→12:39)
[2017-01-28 05:33] LABS: BASOPHILS % (AUTO) 0 % (0-10); EOSINOPHILS # (AUTO) 0.1 10^3/uL (0.0-0.3); EOSINOPHILS % (AUTO) 2 % (0-10); LYMPHOCYTES # (AUTO) 1.3 X 10^3 (1.0-4.0); LYMPHOCYTES % (AUTO) 28 % (12-44); MEAN CORPUSCULAR HEMOGLOBIN 28 PG (25-34); MEAN CORPUSCULAR HGB CONC 32 G/DL (32-36); MEAN CORPUSCULAR VOLUME 88 FL (80-99); MEAN PLATELET VOLUME 11.9 FL (7.4-10.4); MONOCYTES # (AUTO) 0.8 X 10^3 (0.0-1.0); MONOCYTES % (AUTO) 17 % (0-12); NEUTROPHILS # (AUTO) 2.5 X 10^3 (1.8-7.8); NEUTROPHILS % (AUTO) 52 % (42-75); PLATELET COUNT 177 10^3/uL (130-400); RED BLOOD COUNT 4.32 10^6/uL (4.35-5.85); RED CELL DISTRIBUTION WIDTH 15.7 % (10.0-14.5); WHITE BLOOD COUNT 4.7 10^3/uL (4.3-11.0)
[2017-01-28 05:51] LABS: ANION GAP 12 MMOL/L (5-14); BLOOD UREA NITROGEN 8 MG/DL (7-18); BUN/CREATININE RATIO 10; CARBON DIOXIDE 22 MMOL/L (21-32); CHLORIDE 102 MMOL/L (98-107); CREATININE SERUM 0.81 MG/DL (0.60-1.30); GFR ESTIMATED > 60; GLUCOSE 101 MG/DL (70-105); PHOSPHORUS 3.1 MG/DL (2.3-4.7); SODIUM 136 MMOL/L (135-145)
[2017-01-28] MEDS: RT-ALBUTEROL/IPRATROPIUM 3 ML (DUONEB) VIAL INH SCH ×2 (07:21→10:47)
--- NOTE | 2017-01-28 07:35 | Pulmonary Progress Note ---
Exam Exam Vital Signs Date Time Temp Pulse Resp B/P (MAP) Pulse Ox O2 Delivery O2 Flow Rate FiO2 01/28/17 07:22 95 3.00 01/28/17 04:00 99.0 96 22 104/60 94 Nasal Cannula 3.50 01/28/17 01:00 86 01/28/17 00:00 100.8 65 18 109/66 95 Nasal Cannula 3.00 01/27/17 21:00 Nasal Cannula 3.00 01/27/17 20:17 98.8 96 20 128/62 95 Nasal Cannula 3.00 01/27/17 19:00 107 01/27/17 15:50 98.5 113 20 137/64 93 Nasal Cannula 3.00 01/27/17 14:53 93 3.00 01/27/17 14:19 99.8 102 20 124/60 91 Nasal Cannula 3.00 01/27/17 13:45 91 Nasal Cannula 3.00 01/27/17 13:00 103 01/27/17 12:00 96 Nasal Cannula 2.00 01/27/17 12:00 100.5 01/27/17 10:44 95 3.00 01/27/17 08:01 96 Nasal Cannula 2.00 01/27/17 08:00 100.2 I & O 01/28/17 07:00 Intake Total 2100 ml Output Total 4225 ml Balance -2125 ml General Appearance: Anxious, Chronically ill, Mild Distress HEENT: Other (mild conjunctival injection noted bilaterally no purulent material noted) Neck: Full Range of Motion, Normal Inspection, Non Tender, Supple Respiratory: Lungs Clear, Normal Breath Sounds, No Accessory Muscle Use, No Respiratory Distress Cardiovascular: No Edema, No Gallop, No JVD, Normal Peripheral Pulses, Tachycardia, Other (soft 1 to 2/6 systolic ejection murmur heard best left lower sternal border) Capillary Refill: Less Than 3 Seconds Extremity: Normal Capillary Refill, Swelling (1+ pedal edema.) Neurologic/Psychiatric: Aphasia (expressive) Skin: Normal Color, Warm/Dry, Other (ROSIO AREA/ GROIN AND INNER THIGHS AND BUTTOCKS WITH SKIN BREAKDOWN/EXCORIATION) Results Lab Laboratory Tests 01/27/17 04:05 01/28/17 05:22 Assessment/Plan Assessment/Plan - Severe sepsis with UTI -Continue Zosyn -PUlmonary edema - secondary to IVF monitor - Hx of CVA with right hemiparesis and expressive aphasia Clinical Quality Measures AMI/AHF: ASA po Prior to arrival: Yes (ASA THIS MORNING) DVT/VTE Risk/Contraindication: Risk Factor Score Per Nursin RFS Level Per Nursing on Admit: 4+=Very High CHRISTEN ALVARADO DO Jan 28, 2017 07:35
[2017-01-28 07:45] VITALS: BP 136/62
--- NOTE | 2017-01-28 08:12 | Diagnostic Imaging Report ---
Indication: Sepsis, chest pain. Discussion: Single portable upright view of the chest was obtained, comparison 01/27/2017. Bilateral pulmonary infiltrates are unchanged. Stable heart size, borderline enlarged. Left upper extremity PICC line is unchanged. No pleural fluid or pneumothorax. Impression: 1. Diffuse bilateral pulmonary infiltrates, stable. Dictated by: Dictated on workstation # [id number]
[2017-01-28] MEDS: BACLOFEN 10 MG (LIORESAL) TAB PO SCH ×2 (09:28→12:57)
[2017-01-28] MEDS: meTOprolol TARTRATE 25 MG (LOPRESSOR) TABLET PO SCH (09:28)
[2017-01-28] MEDS: ASPIRIN E.C. 325 MG (ECOTRIN) TABLET PO SCH (09:29)
--- NOTE | 2017-01-28 11:37 | Progress Note-Hospitalist ---
Standard Progress Note Progress Notes/Assess & Plan Date Seen 01/28/17 Diagnosis 1. Severe sepsis likely urinary tract infection in addition to acute viral bronchitis. Influences still going around so we'll need to perform nasal swab to rule out. Continue IV fluids and antibiotics. Urine culture pending. 2. Sinus tachycardia secondary to number 1 continue IV fluids. 3. Past left sided CVA with right hemiparesis and expressive aphasia Assess & Plan/Chief Complaint The patient is alert this morning. Her daughters are present. Her vital signs are stable. Urinary tract infection shows Escherichia coli which is sensitive to everything but flu quinolones and Bactrim. She continues to cough with a bit of mucus production. She meets criteria for transfer back to the [facility]. Physical exam: She is alert. Lungs show scattered rhonchi which move with coughing. CV is regular although difficult to hear. Again noted is the right hemiparesis and aphasia. Impression: Urinary tract with Escherichia coli. 2.sepsis secondary to number 1 3.previous left hemispheric CVA with right hemiparesis and aphasia. 4.hypertension. COPD with bronchitic cough Labs Laboratory Tests 01/27/17 04:05 01/28/17 05:22 LASHONDA RODRIGUEZ MD Jan 28, 2017 11:37
[2017-01-28] MEDS ORDERED: CEFD300C3 PO (11:46)
--- NOTE | 2017-01-28 11:51 | Discharge Inst-Simple/Standard ---
Discharge Inst-Standard Discharge Medications New, Converted or Re-Newed RX: Transmitted to Pharmacy Patient Instructions/Follow Up Plan of Care/Instructions/FU: Resume medications as listed on the discharge sequence. 2.resume diet and activity as previously 3.complete Omnicef for one week. Activity as Tolerated: Yes Goal: Return to previous state Discharge Diet: No Restrictions Return to The Hospital For: Decline in function LASHONDA RODRIGUEZ MD Jan 28, 2017 11:51
[2017-01-28] MEDS ORDERED: cefTRIAXone INJECTION 1,000 MG in NS (IVPB) 50 ML IV NR (11:57)
[2017-01-28 12:00] VITALS: BP 119/58
--- NOTE | 2017-02-19 14:26 | Discharge Summary-Hospitalist ---
Diagnosis/Chief Complaint Date of Admission Jan 25, 2017 at 22:00 Date of Discharge Jan 28, 2017 at 15:05 Discharge Date: Jan 28, 2017 Admission Diagnosis 1. Severe sepsis likely urinary tract infection in addition to acute viral bronchitis. Influences still going around so we'll need to perform nasal swab to rule out. Continue IV fluids and antibiotics. Urine culture pending. 2. Sinus tachycardia secondary to number 1 continue IV fluids. 3. 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 2.sepsis secondary to number 1. 3.previous left hemispheric CVA with right hemiparesis and aphasia. 4.hypertension. 5.COPD with bronchitic cough. Reason Hospital Visit/Course Mrs. Amador is a frail 71-year-old white female who was sent from the [facility] with fever cough tachycardia and chest pain. She is unable to give history secondary to expressive aphasia from an old left sided CVA. Apparently her heart rate was as high as 150. Upon arrival to the emergency room and after fluids she was no one teen to 120 range in sinus tachycardia. There was questionable pulmonary mass on chest x-ray so she was sent for a CT scan revealed pleural plaquing with no acute infiltrates. She was nitrite positive with pyuria and bacteriuria. She was admitted meeting criteria for severe sepsis for urinary tract infection with likely viral bronchitis. Hospital course: The patient was a frail 71-year-old white female who had suffered a CVA years ago which left her with a right hemiparesis and expressive aphasia the initial thought after admission was that she likely had an acute viral bronchitis. Urine culture however showed Escherichia coli which was widely susceptible. This was treated with IV's cephalosporins and responded well. By 28 January she was deemed a satisfactory for [facility]. She was to continue oral cephalosporins to complete her course. She remains in frail condition. Medications are as listed on the discharge sequence. Discharge Summary Discharge Physical Examination Allergies: Coded Allergies: levofloxacin (Verified Allergy, Mild, 08/14/16) cephalexin (Verified Allergy, Unknown, 08/14/16) menthol (Verified Allergy, Unknown, RASH, 01/26/17) zinc oxide (Unverified Adverse Reaction, Intermediate, 03/22/14) rash-from calmoseptine Hospital Course Labs (last 24 hrs) Microbiology 01/25/17 Blood Culture - Final, Complete No growth 01/25/17 Influenza Types A,B Antigen (RAYNA) - Final, Complete 01/25/17 Urine Culture - Final, Complete Escherichia Coli Discharge Home Medications: Active Scripts Active Lorazepam Intensol (Lorazepam) 2 Mg/1 Ml Oral.conc 1 Mg PO Q3HR PRN Morphine Sulfate Concentrate 20mg/ml (Morphine Sulfate) 100 Mg/5 Ml Solution 5 Mg PO Q2H PRN Reported Iprat-Albut 0.5-3(2.5) mg/3 ml (Ipratropium/Albuterol Sulfate) 3 Ml Ampul.neb 3 Ml IH Q4H Eucerin Original Lotion (Lanolin/Mineral Oil) 250 Ml Lotion TP BID Biofreeze (Menthol) 118 Ml Gel..ml. TP BID Trimethoprim 100 Mg Tablet 100 Mg PO HS [Tonic Water] 4 Oz PO HS Phenergan (Promethazine HCl) 25 Mg Supp.rect 25 Mg RC Q4H PRN Potassium Chloride 20 Meq Tablet.er 20 Meq PO DAILY Ondansetron HCl 4 Mg Tablet 4 Mg PO Q8H PRN Fluticasone Propionate 16 Gm Selby.susp 1 Selby NS PRN PRN Breo Ellipta 100-25 Mcg INH (Fluticasone/Vilanterol) 1 Each Blst.w.dev 1 Puff INH DAILY Cranberry-Probiotic Tablet (Cranberry Con&Fr/B.coag/C/Calc) 1 Each Tablet 1 Tab PO BID Baclofen 10 Mg Tablet 10 Mg PO TID Vitamin C (Ascorbate Calcium) 500 Mg Tablet 500 Mg PO DAILY Instructions to patient/family Please see electonic discharge instructions given to patient. Clinical Quality Measures AMI/AHF: ASA po Prior to arrival: Yes (ASA THIS MORNING) DVT/VTE Risk/Contraindication: Risk Factor Score Per Nursin RFS Level Per Nursing on Admit: 4+=Very High LASHONDA RODRIGUEZ MD February 19, 2017 14:26
--- OUTSIDE RECORDS SUMMARY | 2017-03-02 05:33 | XMS REPORT | Continuity of Care Document ---
Author Author [facility] Organization [facility] Address Unknown Phone Unavailable Allergies Active Description Code Type Severity Reaction Onset Reported/Identified Relationship to Patient Clinical Status Yes zinc oxide [id number] Drug Allergy Moderate N/A 03/22/2014 Yes levofloxacin [id number] Drug Allergy Mild N/A 08/14/2016 Yes cephalexin [id number] Drug Allergy Unknown N/A 08/14/2016 Yes menthol [id number] Drug Allergy Unknown RASH 01/26/2017 Medications Problems Date Dx Coded Attending Type Code Diagnosis Diagnosed By 03/16/2013 RIP CARPENTER MD Ot 038.9 SEPTICEMIA NOS 03/16/2013 RIP CARPENTER MD Ot 041.49 OTHER AND UNSPECIFIED ESCHERICHIA COLI [ 03/16/2013 RIP CARPENTER MD Ot 276.51 DEHYDRATION 03/16/2013 RIP CARPENTER MD Ot 276.8 HYPOPOTASSEMIA 03/16/2013 RIP CARPENTER MD Ot 305.1 TOBACCO USE DISORDER 03/16/2013 RIP CARPENTER MD Ot 401.9 HYPERTENSION NOS 03/16/2013 RIP CARPENTER MD Ot 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, SPEECH LA 03/16/2013 RIP CARPENTER MD Ot 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, 03/16/2013 RIP CARPENTER MD Ot 438.20 LATE EFF-CEREBR DIS,HEMIPLEGIA AFFECTING 03/16/2013 RIP CARPENTER MD Ot 496 CHR AIRWAY OBSTRUCT NEC 03/16/2013 RIP CARPENTER MD Ot 599.0 URIN TRACT INFECTION NOS 03/16/2013 RIP CARPENTER MD Ot 715.90 OSTEOARTHROS NOS-UNSPEC 03/16/2013 RIP CARPENTER MD Ot 719.41 JOINT PAIN-SHLDER 03/16/2013 RIP CARPENTER MD Ot 787.91 DIARRHEA 03/16/2013 RIP CARPENTER MD Ot 790.29 OTHER ABNORMAL GLUCOSE 03/16/2013 RIP CARPENTER MD Ot 995.91 SEPSIS 03/16/2013 RIP CARPENTER MD Ot E000.8 OTHER EXTERNAL CAUSE STATUS 03/16/2013 RIP CARPENTER MD Ot E849.0 ACCIDENT IN HOME 03/16/2013 RIP CARPENTER MD Ot E888.9 FALL NOS 03/08/2014 STEFANOJOE Pratt DO Ot 590.80 PYELONEPHRITIS NOS 03/08/2014 JOE AGARWAL DO Ot 789.09 ABDOMINAL PAIN, OTHER SPECIFIED SITE 03/19/2014 RIP CARPENTER MD Ot 038.9 SEPTICEMIA NOS 03/19/2014 RIP CARPENTER MD Ot 401.9 HYPERTENSION NOS 03/19/2014 RIP CARPENTER MD Ot 433.10 CAROTID ARTERY OCCLUSION W O CEREBRAL IN 03/19/2014 RIP CARPENTER MD Ot 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, SPEECH LA 03/19/2014 RIP CARPENTER MD Ot 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, 03/19/2014 RIP CARPENTER MD Ot 438.20 LATE EFF-CEREBR DIS,HEMIPLEGIA AFFECTING 03/19/2014 RIP CARPENTER MD Ot 443.9 PERIPH VASCULAR DIS NOS 03/19/2014 RIP CARPENTER MD Ot 477.9 ALLERGIC RHINITIS NOS 03/19/2014 RIP CARPENTER MD Ot 496 CHR AIRWAY OBSTRUCT NEC 03/19/2014 RIP CARPENTER MD Ot 596.51 HYPERTONICITY OF BLADDER 03/19/2014 RIP CARPENTER MD Ot 599.0 URIN TRACT INFECTION NOS 03/19/2014 RIP CARPENTER MD Ot 715.90 OSTEOARTHROS NOS-UNSPEC 03/19/2014 RIP CARPENTER MD Ot 995.91 SEPSIS 03/23/2014 RIP CARPENTER MD Ot 276.8 HYPOPOTASSEMIA 03/23/2014 RIP CARPENTER MD Ot 305.1 TOBACCO USE DISORDER 03/23/2014 RIP CARPENTER MD Ot 401.9 HYPERTENSION NOS 03/23/2014 RIP CARPENTER MD Ot 433.10 CAROTID ARTERY OCCLUSION W O CEREBRAL IN 03/23/2014 RIP CARPENTER MD Ot 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, SPEECH LA 03/23/2014 RIP CARPENTER MD Ot 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, 03/23/2014 RIP CARPENTER MD Ot 438.20 LATE EFF-CEREBR DIS,HEMIPLEGIA AFFECTING 03/23/2014 RIP CARPENTER MD Ot 443.9 PERIPH VASCULAR DIS NOS 03/23/2014 RIP CARPENTER MD Ot 496 CHR AIRWAY OBSTRUCT NEC 03/23/2014 RIP CARPENTER MD Ot 596.51 HYPERTONICITY OF BLADDER 03/23/2014 RIP CARPENTER MD Ot 599.0 URIN TRACT INFECTION NOS 03/23/2014 RIP CARPENTER MD Ot 716.90 ARTHROPATHY NOS-UNSPEC 03/23/2014 RIP CARPENTER MD Ot 724.2 LUMBAGO 03/23/2014 RIP CARPENTER MD Ot 780.2 SYNCOPE AND COLLAPSE 03/30/2014 ALEKSANDAR MCGILL, MAE E Ot 041.10 BACTERIAL INFEC DUE TO UNSPEC STAPHYLOCO 03/30/2014 ALEKSANDAR MCGILL, MAE E Ot 112.2 CANDIDIAS UROGENITAL NEC 03/30/2014 ALEKSANDAR MCGILL MAE E Ot 401.9 HYPERTENSION NOS 03/30/2014 ALEKSANDAR MCGILL MAE E Ot 433.10 CAROTID ARTERY OCCLUSION W O CEREBRAL IN 03/30/2014 ALEKSANDAR MCGILL MAE E Ot 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, SPEECH LA 03/30/2014 ALEKSANDAR MCGILL MAE E Ot 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, 03/30/2014 ALEKSANDAR MCGILL MAE E Ot 438.20 LATE EFF-CEREBR DIS,HEMIPLEGIA AFFECTING 03/30/2014 ALEKSANDAR MCGILL MAE E Ot 496 CHR AIRWAY OBSTRUCT NEC 03/30/2014 MAE HUERTAS MD Ot 596.51 HYPERTONICITY OF BLADDER 03/30/2014 MAE HUERTAS MD Ot 599.0 URIN TRACT INFECTION NOS 03/30/2014 MAE HUERTAS MD Ot 693.0 DRUG DERMATITIS NOS 03/30/2014 MAE HUERATS MD Ot 715.90 OSTEOARTHROS NOS-UNSPEC 03/30/2014 MAE HUERTAS MD Ot E931.0 ADV EFF SULFONAMIDES 03/30/2014 MAE HUERTAS MD Ot V46.2 SUPPLEMENTAL OXYGEN 03/30/2014 MAE HUERTAS MD E Ot V57.89 REHABILITATION PROC NEC 09/12/2014 STACIE BHATTI PLASTIC MOULD MAKER Ot V76.12 09/13/2014 STACIE BHATTI PLASTIC MOULD MAKER Ot V76.12 12/06/2014 STACIE BHATTI PLASTIC MOULD MAKER Ot V76.12 12/06/2014 KELVIN LAINEZ Ot 305.1 TOBACCO USE DISORDER 12/06/2014 KELVIN LAINEZ Ot 491.22 OBSTRUCTIVE CHRONIC BRONCHITIS WITH ACUT 12/06/2014 KELVIN LAINEZ Ot 786.05 SHORTNESS OF BREATH 04/22/2015 STACIE BHATTI APRN Ot V76.12 04/22/2015 SHANIA ROSALES DO Ot 486 PNEUMONIA, ORGANISM NOS 04/22/2015 SHANIA ROSALES DO Ot 562.10 DIVERTICULOSIS COLON (W/O MENT OF HEMORR 04/22/2015 SHANIA ROSALES DO Ot 959.11 OTH INJURY OF CHEST WALL 04/22/2015 SHANIA ROSALES DO Ot 959.2 SHLDR/UPPER ARM INJ NOS 04/22/2015 SHANIA ROSALES DO Ot E000.8 OTHER EXTERNAL CAUSE STATUS 04/22/2015 SHANIA ROSALES DO Ot E849.0 ACCIDENT IN HOME 04/22/2015 SHANIA ROSALES DO Ot E888.9 FALL NOS 04/27/2015 JOSE SAINZ APRN Ot 305.1 TOBACCO USE DISORDER 04/27/2015 JOSE SAINZ APRN Ot 486 PNEUMONIA, ORGANISM NOS 04/27/2015 JOSE SAINZ APRN Ot 491.21 OBSTR CHRONIC BRONCHITIS, W (ACUTE) EXAC 04/27/2015 JOSE SAINZ APRN Ot 786.09 RESPIRATORY ABNORM NEC 04/27/2015 JOSE SIANZ APRN Ot 807.03 FRACTURE THREE RIBS-CLOS 04/27/2015 JOSE SAINZ APRN Ot E000.8 OTHER EXTERNAL CAUSE STATUS 04/27/2015 JOSE SAINZ APRN Ot E888.9 FALL NOS 04/27/2015 JOSE SAINZ APRN Ot V58.69 OTH MED,LT,CURRENT USE 06/13/2015 DOMENIC MCGILL, JOSE M Cisse Ot 298.9 PSYCHOSIS NOS 06/13/2015 DOMENIC MCGILL, JOSE M Cisse Ot 438.10 LATE EFF-CEREBR DIS NOS, SPEECH LANGUA 06/13/2015 JOSE M SHETH MD Ot 438.89 OTH LATE EFFECT-CEREBROVASCULAR DISEASE 06/13/2015 JOSE M SHETH MD Ot 780.79 OTH MALAISE FATIGUE 06/13/2015 JOSE M SHETH MD Ot 786.52 PAINFUL RESPIRATION 06/13/2015 DOMENIC MCGILL, JOSE M Cisse Ot V58.69 OT MED,LT,CURRENT USE 06/28/2015 STACIE BHATTI PLASTIC MOULD MAKER Ot 724.5 06/28/2015 STACIE BHATTI PLASTIC MOULD MAKER Ot V15.59 07/08/2015 GEORGI PEREZ MD Ot 786.50 CHEST PAIN NOS 07/08/2015 GEORGI PEREZ MD Ot 786.52 PAINFUL RESPIRATION 07/11/2015 STACIE BHATTI PLASTIC MOULD MAKER Ot 724.5 07/11/2015 STACIE BHATTI PLASTIC MOULD MAKER Ot V15.59 07/12/2015 STACIE BHATTI PLASTIC MOULD MAKER Ot V76.12 07/12/2015 STACIE BHATTI PLASTIC MOULD MAKER Ot 724.5 07/12/2015 STACIE BHATTI PLASTIC MOULD MAKER Ot V15.59 07/31/2016 JOSE M SHETH MD, Ot 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 07/31/2016 JOSE M SHETH MD Ot J44.9 CHRONIC OBSTRUCTIVE PULMONARY DISEASE , U 07/31/2016 JOSE M SHETH MD Ot S49.91XA UNSP INJURY OF RIGHT SHOULDER AND UPPER 07/31/2016 JOSE M SHETH MD Ot S89.91XA UNSPECIFIED INJURY OF RIGHT LOWER LEG, I 07/31/2016 JOSE M SHETH MD Ot W01.0XXA FALL SAME LEV FROM SLIP/TRIP W/O STRIKE 07/31/2016 JOSE M SHETH MD Ot Y92.[address] 07/31/2016 JOSE M SHETH MD Ot Y93.G1 ACTIVITY, FOOD PREPARATION AND CLEAN UP 07/31/2016 JOSE M SHETH MD Ot Y99.8 OTHER EXTERNAL CAUSE STATUS 07/31/2016 JOSE M SHETH MD Ot Z79.82 SKILLED NURSING (CURRENT) USE OF ASPIRIN 07/31/2016 JOSE M SHETH MD, Ot Z79.899 OTHER SKILLED NURSING (CURRENT) DRUG THERAPY 08/03/2016 JOSE M SHETH MD Ot 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 08/03/2016 JOSE M SHETH MD, Ot J44.9 CHRONIC OBSTRUCTIVE PULMONARY DISEASE , U 08/03/2016 JOSE M SHETH MD Ot S49.91XA UNSP INJURY OF RIGHT SHOULDER AND UPPER 08/03/2016 JOSE M SHETH MD Ot S89.91XA UNSPECIFIED INJURY OF RIGHT LOWER LEG, I 08/03/2016 JOSE M SHETH MD Ot W01.0XXA FALL SAME LEV FROM SLIP/TRIP W/O STRIKE 08/03/2016 JOSE M SHETH MD Ot Y92.[address] 08/03/2016 JOSE M SHETH MD Ot Y93.G1 ACTIVITY, FOOD PREPARATION AND CLEAN UP 08/03/2016 OJSE M SHETH MD Ot Y99.8 OTHER EXTERNAL CAUSE STATUS 08/03/2016 JOSE M SHETH MD Ot Z79.82 HOSPICE PLAN ADMINISTRATOR (CURRENT) USE OF ASPIRIN 08/03/2016 JOSE M SHETH MD Ot Z79.899 OTHER HOSPICE PLAN ADMINISTRATOR (CURRENT) DRUG THERAPY 08/06/2016 STACIE BHATTI PLASTIC MOULD MAKER Ot V76.12 OTH SCREEN MAMMO-MALIGN NEOPLASM OF NEAL 08/06/2016 STACIE BHATTI PLASTIC MOULD MAKER Ot 724.5 BACKACHE NOS 08/06/2016 STACIE BHATTI PLASTIC MOULD MAKER Ot V15.59 PERSONAL HISTORY OF OTHER INJURY 08/07/2016 JOSE M SHETH MD Ot 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 08/07/2016 JOSE M SHETH MD, Ot J44.9 CHRONIC OBSTRUCTIVE PULMONARY DISEASE , U 08/07/2016 JOSE M SHETH MD Ot S49.91XA UNSP INJURY OF RIGHT SHOULDER AND UPPER 08/07/2016 JOSE M SHETH MD Ot S89.91XA UNSPECIFIED INJURY OF RIGHT LOWER LEG, I 08/07/2016 JOSE M SHETH MD Ot W01.0XXA FALL SAME LEV FROM SLIP/TRIP W/O STRIKE 08/07/2016 JOSE M SHETH MD Ot Y92.[address] 08/07/2016 JOSE M SHETH MD Ot Y93.G1 ACTIVITY, FOOD PREPARATION AND CLEAN UP 08/07/2016 JOSE M SHETH MD Ot Y99.8 OTHER EXTERNAL CAUSE STATUS 08/07/2016 JOSE M SHETH MD Ot Z79.82 HOSPICE PLAN ADMINISTRATOR (CURRENT) USE OF ASPIRIN 08/07/2016 JOSE M SHETH MD Ot Z79.899 OTHER SKILLED NURSING (CURRENT) DRUG THERAPY 08/16/2016 NANCY FULLER DO Ot A41.9 SEPSIS, UNSPECIFIED ORGANISM 08/16/2016 NANCY FULLER DO Ot F32.9 MAJOR DEPRESSIVE DISORDER, SINGLE EPISOD 08/16/2016 NANCY FULLER DO Ot I10 ESSENTIAL (PRIMARY) HYPERTENSION 08/16/2016 CONCEPCIÓN FULLER DOI Ot I69.320 APHASIA FOLLOWING CEREBRAL INFARCTION 08/16/2016 CONCEPCIÓN FULLER DOI Ot 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 RI 08/16/2016 NANCY FULLER DO Ot J44.9 CHRONIC OBSTRUCTIVE PULMONARY DISEASE, U 08/16/2016 CONCEPCIÓN FULLER DOI Ot J45.901 UNSPECIFIED ASTHMA WITH (ACUTE) EXACERBA 08/16/2016 NANCY FULLER DO Ot L27.1 LOC SKIN ERUPTION DUE TO DRUGS AND MEDS 08/16/2016 CONCEPCIÓN FULLER DOI Ot N39.0 URINARY TRACT INFECTION, SITE NOT SPECIF 08/16/2016 CONCEPCIÓN FULLER DOI Ot R41.3 OTHER AMNESIA 08/16/2016 NANCY FULLER DO Ot T36.8X5A ADVERSE EFFECT OF OTHER SYSTEMIC ANTIBIO 08/16/2016 CONCEPCIÓN FULLER DOI Ot Z66 DO NOT RESUSCITATE 08/30/2016 MAE HUERTAS MD Ot A41.9 SEPSIS, UNSPECIFIED ORGANISM 08/30/2016 MAE HUERTAS MD Ot I10 ESSENTIAL (PRIMARY) HYPERTENSION 08/30/2016 MAE HUERTAS MD Ot I69.320 APHASIA FOLLOWING CEREBRAL INFARCTION 08/30/2016 MAE HUERTAS MD Ot 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 RI 08/30/2016 MAE HUERTAS MD Ot J44.1 CHRONIC OBSTRUCTIVE PULMONARY DISEASE W 08/30/2016 MAE HUERTAS MD Ot N39.0 URINARY TRACT INFECTION, SITE NOT SPECIF 08/30/2016 MAE HUERTAS MD Ot R33.9 RETENTION OF URINE, UNSPECIFIED 08/30/2016 MAE HUERTAS MD Ot Z66 DO NOT RESUSCITATE 09/04/2016 MAE HUERTAS MD Ot A41.9 SEPSIS, UNSPECIFIED ORGANISM 09/04/2016 MAE HUERTAS MD Ot I10 ESSENTIAL (PRIMARY) HYPERTENSION 09/04/2016 MAE HUERTAS MD Ot I69.320 APHASIA FOLLOWING CEREBRAL INFARCTION 09/04/2016 MAE HUERTAS MD Ot 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 RI 09/04/2016 MAE HUERTAS MD Ot J44.1 CHRONIC OBSTRUCTIVE PULMONARY DISEASE W 09/04/2016 MAE HUERTAS MD Ot J45.909 UNSPECIFIED ASTHMA, UNCOMPLICATED 09/04/2016 MAE HUERTAS MD Ot K52.9 NONINFECTIVE GASTROENTERITIS AND COLITIS 09/04/2016 MAE HUERTAS MD Ot M79.604 PAIN IN RIGHT LEG 09/04/2016 MAE HUERTAS MD Ot N39.0 URINARY TRACT INFECTION, SITE NOT SPECIF 09/04/2016 MAE HUERTAS MD Ot R33.9 RETENTION OF URINE, UNSPECIFIED 09/04/2016 MAE HUERTAS MD Ot Z66 DO NOT RESUSCITATE 09/04/2016 MAE HUERTAS MD Ot Z99.81 DEPENDENCE ON SUPPLEMENTAL OXYGEN 01/27/2017 RIP CARPENTER MD Ot A41.9 SEPSIS, UNSPECIFIED ORGANISM 01/27/2017 RIP CARPENTER MD Ot E11.51 TYPE 2 DIABETES W DIABETIC PERIPHERAL AN 01/27/2017 RIP CARPENTER MD Ot I10 ESSENTIAL (PRIMARY) HYPERTENSION 01/27/2017 RIP CARPENTER MD Ot I25.2 OLD MYOCARDIAL INFARCTION 01/27/2017 RIP CARPENTER MD Ot 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 01/27/2017 RIP CARPENTER MD Ot I69.320 APHASIA FOLLOWING CEREBRAL INFARCTION 01/27/2017 RIP CARPENTER MD Ot 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 RI 01/27/2017 RIP CARPENTER MD Ot I69.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 01/27/2017 RIP CARPENTER MD Ot I69.392 FACIAL WEAKNESS FOLLOWING CEREBRAL INFAR 01/27/2017 RIP CARPENTER MD Ot I69.398 OTHER SEQUELAE OF CEREBRAL INFARCTION 01/27/2017 RIP CARPENTER MD Ot J20.8 ACUTE BRONCHITIS DUE TO OTHER SPECIFIED 01/27/2017 RIP CARPENTER MD, Ot J44.0 CHRONIC OBSTRUCTIVE PULMON DISEASE W ACU 01/27/2017 RIP CARPENTER MD, Ot J45.909 UNSPECIFIED ASTHMA, UNCOMPLICATED 01/27/2017 RIP CARPENTER MD, Ot 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 01/27/2017 RIP CARPENTER MD, Ot M24.541 CONTRACTURE, RIGHT HAND 01/27/2017 RIP CARPENTER MD, Ot N39.0 URINARY TRACT INFECTION, SITE NOT SPECIF 01/27/2017 RIP CARPENTER MD Ot R32 UNSPECIFIED URINARY INCONTINENCE 01/27/2017 RIP CARPENTER MD, Ot R65.20 SEVERE SEPSIS WITHOUT SEPTIC SHOCK 01/27/2017 RIP CARPENTER MD, Ot Z87.891 PERSONAL HISTORY OF NICOTINE DEPENDENCE 01/27/2017 RIP CARPENTER MD, Ot A41.9 SEPSIS, UNSPECIFIED ORGANISM 01/27/2017 RIP CARPENTER MD Ot E11.51 TYPE 2 DIABETES W DIABETIC PERIPHERAL AN 01/27/2017 RIP CARPENTER MD Ot I10 ESSENTIAL (PRIMARY) HYPERTENSION 01/27/2017 RIP CARPENTER MD Ot I25.2 OLD MYOCARDIAL INFARCTION 01/27/2017 RIP CARPENTER MD Ot 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 01/27/2017 RIP CARPENTER MD Ot I69.320 APHASIA FOLLOWING CEREBRAL INFARCTION 01/27/2017 RIP CARPENTER MD Ot 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 RI 01/27/2017 RIP CARPENTER MD Ot I69.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 01/27/2017 RIP CARPENTER MD Ot I69.392 FACIAL WEAKNESS FOLLOWING CEREBRAL INFAR 01/27/2017 RIP CARPENTER MD Ot I69.398 OTHER SEQUELAE OF CEREBRAL INFARCTION 01/27/2017 RIP CARPENTER MD Ot J20.8 ACUTE BRONCHITIS DUE TO OTHER SPECIFIED 01/27/2017 RIP CARPENTER MD, Ot J44.0 CHRONIC OBSTRUCTIVE PULMON DISEASE W ACU 01/27/2017 RIP CARPENTER MD, Ot J45.909 UNSPECIFIED ASTHMA, UNCOMPLICATED 01/27/2017 RIP CARPENTER MD Ot 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 01/27/2017 RIP CARPENTER MD, Ot M24.541 CONTRACTURE, RIGHT HAND 01/27/2017 RIP CARPENTER MD, Ot N39.0 URINARY TRACT INFECTION, SITE NOT SPECIF 01/27/2017 RIP CARPENTER MD, Ot R32 UNSPECIFIED URINARY INCONTINENCE 01/27/2017 RIP CARPENTER MD, Ot R65.20 SEVERE SEPSIS WITHOUT SEPTIC SHOCK 01/27/2017 RIP CARPENTER MD, Ot Z87.891 PERSONAL HISTORY OF NICOTINE DEPENDENCE 01/28/2017 RIP CARPENTER MD, Ot A41.9 SEPSIS, UNSPECIFIED ORGANISM 01/28/2017 RIP CARPENTER MD, Ot E11.51 TYPE 2 DIABETES W DIABETIC PERIPHERAL AN 01/28/2017 RIP CARPENTER MD Ot I10 ESSENTIAL (PRIMARY) HYPERTENSION 01/28/2017 RIP CARPENTER MD, Ot I25.2 OLD MYOCARDIAL INFARCTION 01/28/2017 RIP CARPENTER MD, Ot 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 01/28/2017 RIP CARPENTER MD Ot I69.320 APHASIA FOLLOWING CEREBRAL INFARCTION 01/28/2017 RIP CARPENTER MD, Ot 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 RI 01/28/2017 RIP CARPENTER MD Ot I69.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 01/28/2017 RIP CARPENTER MD Ot I69.392 FACIAL WEAKNESS FOLLOWING CEREBRAL INFAR 01/28/2017 RIP CARPENTER MD Ot I69.398 OTHER SEQUELAE OF CEREBRAL INFARCTION 01/28/2017 RIP CARPENTER MD Ot J20.8 ACUTE BRONCHITIS DUE TO OTHER SPECIFIED 01/28/2017 RIP CARPENTER MD, Ot J44.0 CHRONIC OBSTRUCTIVE PULMON DISEASE W ACU 01/28/2017 RIP CARPENTER MD, Ot J45.909 UNSPECIFIED ASTHMA, UNCOMPLICATED 01/28/2017 RIP CARPENTER MD, Ot 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 01/28/2017 RIP CARPENTER MD, Ot M24.541 CONTRACTURE, RIGHT HAND 01/28/2017 RIP CARPENTER MD, Ot N39.0 URINARY TRACT INFECTION, SITE NOT SPECIF 01/28/2017 RIP CARPENTER MD, Ot R32 UNSPECIFIED URINARY INCONTINENCE 01/28/2017 RIP CARPENTER MD, Ot R65.20 SEVERE SEPSIS WITHOUT SEPTIC SHOCK 01/28/2017 RIP CARPENTER MD, Ot Z87.891 PERSONAL HISTORY OF NICOTINE DEPENDENCE 01/28/2017 RIP CARPENTER MD, Ot A41.9 SEPSIS, UNSPECIFIED ORGANISM 01/28/2017 RIP CARPENTER MD, Ot E11.51 TYPE 2 DIABETES W DIABETIC PERIPHERAL AN 01/28/2017 RIP CARPENTER MD Ot I10 ESSENTIAL (PRIMARY) HYPERTENSION 01/28/2017 RIP CARPENTER MD Ot I25.2 OLD MYOCARDIAL INFARCTION 01/28/2017 RIP CARPENTER MD Ot 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 01/28/2017 RIP CARPENTER MD Ot I69.320 APHASIA FOLLOWING CEREBRAL INFARCTION 01/28/2017 RIP CARPENTER MD Ot 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 RI 01/28/2017 RIP CARPENTER MD Ot I69.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 01/28/2017 RIP CARPENTER MD Ot I69.392 FACIAL WEAKNESS FOLLOWING CEREBRAL INFAR 01/28/2017 RIP CARPENTER MD Ot I69.398 OTHER SEQUELAE OF CEREBRAL INFARCTION 01/28/2017 RIP CARPENTER MD Ot J20.8 ACUTE BRONCHITIS DUE TO OTHER SPECIFIED 01/28/2017 RIP CARPENTER MD, Ot J44.0 CHRONIC OBSTRUCTIVE PULMON DISEASE W ACU 01/28/2017 RIP CARPENTER MD, Ot J45.909 UNSPECIFIED ASTHMA, UNCOMPLICATED 01/28/2017 RIP CARPENTER MD Ot 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 01/28/2017 RIP CARPENTER MD Ot M24.541 CONTRACTURE, RIGHT HAND 01/28/2017 RIP CARPENTER MD, Ot N39.0 URINARY TRACT INFECTION, SITE NOT SPECIF 01/28/2017 RIP CARPENTER MD Ot R32 UNSPECIFIED URINARY INCONTINENCE 01/28/2017 RIP CARPENTER MD Ot R65.20 SEVERE SEPSIS WITHOUT SEPTIC SHOCK 01/28/2017 RIP CARPENTER MD Ot Z87.891 PERSONAL HISTORY OF NICOTINE DEPENDENCE 01/28/2017 STACIE BHATTI PLASTIC MOULD MAKER Ot V76.12 OTH SCREEN MAMMO-MALIGN NEOPLASM OF NEAL 01/28/2017 STACIE BHATTI PLASTIC MOULD MAKER Ot 724.5 BACKACHE NOS 01/28/2017 STACIE BHATTI PLASTIC MOULD MAKER Ot V15.59 PERSONAL HISTORY OF OTHER INJURY 01/28/2017 RIP CARPENTER MD Ot A41.9 SEPSIS, UNSPECIFIED ORGANISM 01/28/2017 RIP CARPENTER MD Ot E11.51 TYPE 2 DIABETES W DIABETIC PERIPHERAL AN 01/28/2017 RIP CARPENTER MD Ot I10 ESSENTIAL (PRIMARY) HYPERTENSION 01/28/2017 RIP CARPENTER MD Ot I25.2 OLD MYOCARDIAL INFARCTION 01/28/2017 RIP CARPENTER MD Ot 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 01/28/2017 RIP CARPENTER MD Ot I69.320 APHASIA FOLLOWING CEREBRAL INFARCTION 01/28/2017 RIP CARPENTER MD Ot 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 RI 01/28/2017 RIP CARPENTER MD Ot I69.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 01/28/2017 RIP CARPENTER MD Ot I69.392 FACIAL WEAKNESS FOLLOWING CEREBRAL INFAR 01/28/2017 RIP CARPENTER MD Ot I69.398 OTHER SEQUELAE OF CEREBRAL INFARCTION 01/28/2017 RIP CARPENTER MD Ot J20.8 ACUTE BRONCHITIS DUE TO OTHER SPECIFIED 01/28/2017 RIP CARPENTER MD Ot J44.0 CHRONIC OBSTRUCTIVE PULMON DISEASE W ACU 01/28/2017 RIP CARPENTER MD Ot J45.909 UNSPECIFIED ASTHMA, UNCOMPLICATED 01/28/2017 RIP CARPENTER MD, Ot 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 01/28/2017 RIP CARPENTER MD Ot M24.541 CONTRACTURE, RIGHT HAND 01/28/2017 RIP CARPENTER MD Ot N39.0 URINARY TRACT INFECTION, SITE NOT SPECIF 01/28/2017 RIP CARPENTER MD Ot R32 UNSPECIFIED URINARY INCONTINENCE 01/28/2017 RIP CARPENTER MD Ot R65.20 SEVERE SEPSIS WITHOUT SEPTIC SHOCK 01/28/2017 RIP CARPENTER MD Ot Z87.891 PERSONAL HISTORY OF NICOTINE DEPENDENCE 01/28/2017 RIP CARPENTER MD Ot B96.20 UNSP ESCHERICHIA COLI THE CAUSE OF DI 01/28/2017 RIP CARPENTER MD Ot E11.51 TYPE 2 DIABETES W DIABETIC PERIPHERAL AN 01/28/2017 RIP CARPENTER MD Ot I10 ESSENTIAL (PRIMARY) HYPERTENSION 01/28/2017 RIP CARPENTER MD Ot I25.2 OLD MYOCARDIAL INFARCTION 01/28/2017 RIP CARPENTER MD Ot 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 01/28/2017 RIP CARPENTER MD Ot I69.320 APHASIA FOLLOWING CEREBRAL INFARCTION 01/28/2017 RIP CARPENTER MD Ot 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 RI 01/28/2017 RIP CARPENTER MD Ot I69.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 01/28/2017 RIP CARPENTER MD Ot I69.392 FACIAL WEAKNESS FOLLOWING CEREBRAL INFAR 01/28/2017 RIP CARPENTER MD Ot I69.398 OTHER SEQUELAE OF CEREBRAL INFARCTION 01/28/2017 RIP CARPENTER MD Ot J20.8 ACUTE BRONCHITIS DUE TO OTHER SPECIFIED 01/28/2017 RIP CARPENTER MD Ot J44.0 CHRONIC OBSTRUCTIVE PULMON DISEASE W ACU 01/28/2017 RIP CARPENTER MD Ot J45.909 UNSPECIFIED ASTHMA, UNCOMPLICATED 01/28/2017 RIP CARPENTER MD Ot 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 01/28/2017 RIP CARPENTER MD Ot M24.541 CONTRACTURE, RIGHT HAND 01/28/2017 RIP CARPENTER MD Ot N39.0 URINARY TRACT INFECTION, SITE NOT SPECIF 01/28/2017 RIP CARPENTER MD Ot R32 UNSPECIFIED URINARY INCONTINENCE 01/28/2017 RIP CARPENTER MD Ot Z87.891 PERSONAL HISTORY OF NICOTINE DEPENDENCE 01/29/2017 SCOT AGARWAL DOA K Ot E11.9 TYPE 2 DIABETES MELLITUS WITHOUT COMPLIC 01/29/2017 STEFANO BEAVER JOE K Ot I10 ESSENTIAL (PRIMARY) HYPERTENSION 01/29/2017 STEFANO DO JOE K Ot 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 01/29/2017 STEFANO DO JOE K Ot J40 BRONCHITIS, NOT SPECIFIED ACUTE OR CH 01/29/2017 SCOT AGARWAL DOA K Ot J44.9 CHRONIC OBSTRUCTIVE PULMONARY DISEASE, U 01/29/2017 SCOT AGARWAL DOA K Ot N39.0 URINARY TRACT INFECTION, SITE NOT SPECIF 01/29/2017 STEFANO BEAVER JOE K Ot R21 RASH AND OTHER NONSPECIFIC SKIN ERUPTION 01/29/2017 SCOT AGARWAL DOA K Ot T36.95XA ADVERSE EFFECT OF UNSP SYSTEMIC ANTIBIOT 01/29/2017 SCOT AGARWAL DOA K Ot Z79.82 SKILLED NURSING (CURRENT) USE OF ASPIRIN 01/29/2017 SCOT AGARWAL DOA K Ot Z79.899 OTHER SKILLED NURSING (CURRENT) DRUG THERAPY 01/30/2017 SCOT AGARWAL DOA K Ot E11.9 TYPE 2 DIABETES MELLITUS WITHOUT COMPLIC 01/30/2017 STEFANO BEAVER JOE K Ot I10 ESSENTIAL (PRIMARY) HYPERTENSION 01/30/2017 STEFANO BEAVER JOE K Ot 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 01/30/2017 STEFANO SCOT BEAVERA K Ot J40 BRONCHITIS, NOT SPECIFIED ACUTE OR CH 01/30/2017 JOE AGARWAL DO, Ot J44.9 CHRONIC OBSTRUCTIVE PULMONARY DISEASE, U 01/30/2017 STEFANO DO JOE Flores Ot N39.0 URINARY TRACT INFECTION, SITE NOT SPECIF 01/30/2017 JOE AGARWAL DO Ot R21 RASH AND OTHER NONSPECIFIC SKIN ERUPTION 01/30/2017 JOE AGARWAL DO Ot T36.95XA ADVERSE EFFECT OF UNSP SYSTEMIC ANTIBIOT 01/30/2017 SCOT AGARWAL DOA Sandra Ot Z79.82 SKILLED NURSING (CURRENT) USE OF ASPIRIN 01/30/2017 JOE AGARWAL DO Ot Z79.899 OTHER SKILLED NURSING (CURRENT) DRUG THERAPY 02/17/2017 RIP CARPENTER MD, Ot A41.9 SEPSIS, UNSPECIFIED ORGANISM 02/17/2017 RIP CARPENTER MD, Ot B37.2 CANDIDIASIS OF SKIN AND NAIL 02/17/2017 RIP CARPENTER MD, Ot B37.3 CANDIDIASIS OF VULVA AND VAGINA 02/17/2017 RIP CARPENTER MD, Ot B95.2 ENTEROCOCCUS THE CAUSE OF DISEASES CL 02/17/2017 RIP CARPENTER MD, Ot E11.51 TYPE 2 DIABETES W DIABETIC PERIPHERAL AN 02/17/2017 RIP CARPENTER MD, Ot F03.90 UNSPECIFIED DEMENTIA WITHOUT BEHAVIORAL 02/17/2017 RIP CARPENTER MD, Ot F32.9 MAJOR DEPRESSIVE DISORDER, SINGLE EPISOD 02/17/2017 RIP CARPENTER MD, Ot H51.8 OTHER SPECIFIED DISORDERS OF BINOCULAR M 02/17/2017 RIP CARPENTER MD, Ot I10 ESSENTIAL (PRIMARY) HYPERTENSION 02/17/2017 RIP CARPENTER MD, Ot I25.2 OLD MYOCARDIAL INFARCTION 02/17/2017 RIP CARPENTER MD, Ot I69.320 APHASIA FOLLOWING CEREBRAL INFARCTION 02/17/2017 RIP CARPENTER MD, Ot I69.321 DYSPHASIA FOLLOWING CEREBRAL INFARCTION 02/17/2017 RIP CARPENTER MD, Ot 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 RI 02/17/2017 RIP CARPENTER MD, Ot I69.398 OTHER SEQUELAE OF CEREBRAL INFARCTION 02/17/2017 RIP CARPENTER MD, Ot J18.9 PNEUMONIA, UNSPECIFIED ORGANISM 02/17/2017 RIP CARPENTER MD, Ot J20.9 ACUTE BRONCHITIS, UNSPECIFIED 02/17/2017 RIP CARPENTER MD, Ot J44.0 CHRONIC OBSTRUCTIVE PULMON DISEASE W ACU 02/17/2017 RIP CARPENTER MD, Ot J45.909 UNSPECIFIED ASTHMA, UNCOMPLICATED 02/17/2017 RIP CARPENTER MD, Ot K52.9 NONINFECTIVE GASTROENTERITIS AND COLITIS 02/17/2017 RIP CARPENTER MD, Ot L89.90 PRESSURE ULCER OF UNSPECIFIED SITE, UNSP 02/17/2017 RIP CARPENTER MD, Ot N39.0 URINARY TRACT INFECTION, SITE NOT SPECIF 02/17/2017 RIP CARPENTER MD, Ot R13.10 DYSPHAGIA, UNSPECIFIED 02/17/2017 RIP CARPENTER MD, Ot R32 UNSPECIFIED URINARY INCONTINENCE 02/17/2017 RIP CARPENTER MD, Ot R65.20 SEVERE SEPSIS WITHOUT SEPTIC SHOCK 02/17/2017 RIP CARPENTER MD, Ot Z51.5 ENCOUNTER FOR PALLIATIVE CARE 02/17/2017 RIP CARPENTER MD, Ot Z66 DO NOT RESUSCITATE 02/17/2017 RIP CARPENTER MD, Ot Z87.01 PERSONAL HISTORY OF PNEUMONIA (RECURRENT Procedures Results Test Result Range Complete blood count (CBC) with automated white blood cell (WBC) differential - 07/31/16 20:00 Blood leukocytes automated count (number/volume) 14.3 10*3/ uL 4.3-11.0 Blood erythrocytes automated count (number/volume) 4.35 10*6 /uL 4.35-5.85 Venous blood hemoglobin measurement (mass/volume) 12.8 g/dL 11.5-16.0 Blood hematocrit (volume fraction) 39 % 35-52 Automated erythrocyte mean corpuscular volume 91 [foz_us] 80-99 Automated erythrocyte mean corpuscular hemoglobin (mass per erythrocyte) 29 pg 25-34 Automated erythrocyte mean corpuscular hemoglobin concentration measurement ( mass/volume) 33 g/dL 32-36 Automated erythrocyte distribution width ratio 13.4 % 10.0-14.5 Automated blood platelet count (count/volume) 253 10*3/uL 130-400 Automated blood platelet mean volume measurement 11.5 [foz_ us] 7.4-10.4 Automated blood neutrophils/100 leukocytes 67 % 42-75 Automated blood lymphocytes/100 leukocytes 19 % 12-44 Blood monocytes/100 leukocytes 11 % 0-12 Automated blood eosinophils/100 leukocytes 3 % 0-10 Automated blood basophils/100 leukocytes 0 % 0-10 Blood neutrophils automated count (number/volume) 9.6 10*3 1.8-7.8 Blood lymphocytes automated count (number/volume) 2.7 10*3 1.0-4.0 Blood monocytes automated count (number/volume) 1.5 10*3 0.0-1.0 Automated eosinophil count 0.5 10*3/uL 0.0-0.3 Automated blood basophil count (count/volume) 0.0 10*3/uL 0.0-0.1 Blood manual differential performed detection - 07/31/16 20:00 Blood monocytes/100 leukocytes 8 % NRG Manual blood segmented neutrophils/100 leukocytes 59 % NRG Blood band neutrophils/100 leukocytes 0 % NRG Manual blood lymphocytes/100 leukocytes 30 % NRG Manual eosinophils/100 leukocytes in nose 3 % NRG Manual blood basophils/100 leukocytes 0 % NRG Blood erythrocyte morphology finding identification NORMAL NRG Comprehensive metabolic panel - 07/31/16 20:00 Serum or plasma sodium measurement (moles/volume) 140 mmol/ L 135-145 Serum or plasma potassium measurement (moles/volume) 4.4 mmol/L 3.6-5.0 Serum or plasma chloride measurement (moles/volume) 106 mmol /L 98-107 Carbon dioxide 20 mmol/L 21-32 Serum or plasma anion gap determination (moles/volume) 14 mmol/L 5-14 Serum or plasma urea nitrogen measurement (mass/volume) 16 mg/dL 7-18 Serum or plasma creatinine measurement (mass/volume) 0.87 mg /dL 0.60-1.30 Serum or plasma urea nitrogen/creatinine mass ratio 18 NRG Serum or plasma creatinine measurement with calculation of estimated glomerular filtration rate > NRG Serum or plasma glucose measurement (mass/volume) 105 mg/dL 70-105 Serum or plasma calcium measurement (mass/volume) 9.3 mg/dL 8.5-10.1 Serum or plasma total bilirubin measurement (mass/volume) 0.7 mg/dL 0.1-1.0 Serum or plasma alkaline phosphatase measurement (enzymatic activity/volume) 101 U/L 40-136 Serum or plasma aspartate aminotransferase measurement (enzymatic activity/ volume) 32 U/L 5-34 Serum or plasma alanine aminotransferase measurement (enzymatic activity/volume ) 23 U/L 0-55 Serum or plasma protein measurement (mass/volume) 8.0 g/dL 6.4-8.2 Serum or plasma albumin measurement (mass/volume) 4.0 g/dL 3.2-4.5 Complete urinalysis with reflex to culture - 07/31/16 20:55 Urine color determination YELLOW NRG Urine clarity determination SLIGHTLY CLOUDY NRG Urine pH measurement by test strip 6 5- 9 Specific gravity of urine by test strip 1.010 1.016-1.022 Urine protein assay by test strip, semi-quantitative 1+ NEGATIVE Urine glucose detection by automated test strip NEGATIVE NEGATIVE Erythrocytes detection in urine sediment by light microscopy NEGATIVE NEGATIVE Urine ketones detection by automated test strip NEGATIVE NEGATIVE Urine nitrite detection by test strip NEGATIVE NEGATIVE Urine total bilirubin detection by test strip NEGATIVE NEGATIVE Urine urobilinogen measurement by automated test strip (mass/volume) NORMAL NORMAL Urine leukocyte esterase detection by dipstick 1+ NEGATIVE Automated urine sediment erythrocyte count by microscopy (number/high power field) NONE NRG Automated urine sediment leukocyte count by microscopy (number/high power field ) [HPF] NRG Bacteria detection in urine sediment by light microscopy MODERATE NRG Squamous epithelial cells detection in urine sediment by light microscopy 2-5 NRG Crystals detection in urine sediment by light microscopy NONE NRG Casts detection in urine sediment by light microscopy NONE NRG Mucus detection in urine sediment by light microscopy NEGATIVE NRG Complete urinalysis with reflex to culture YES NRG Bacterial urine culture - 07/31/16 20:55 Bacterial urine culture [id number] NRG COLONY COUNT >100,000/ML NRG FTX;REPORTABLE SENSITIVITIES REPORTED AT 0850, 08-02-16 [facility] Bacterial susceptibility panel - 07/31/16 20:55 Gentamicin susceptibility test by minimum inhibitory concentration <= NRG Trimethoprim/sulfamethoxazole susceptibility test by minimum inhibitoryconcentration >= NRG Ampicillin susceptibility test by minimum inhibitory concentration >= NRG Tobramycin susceptibility test by minimum inhibitory concentration 2 NRG Cefazolin susceptibility test by minimum inhibitory concentration <= NRG Ceftriaxone susceptibility test by minimum inhibitory concentration <= NRG Ampicillin/sulbactam susceptibility test by minimum inhibitory concentration 8 NRG Piperacillin/tazobactam susceptibility test by minimum inhibitory concentration <= NRG Ciprofloxacin susceptibility test by minimum inhibitory concentration >= NRG Meropenem susceptibility test by minimum inhibitory concentration <= NRG Nitrofurantoin susceptibility test by minimum inhibitory concentration <= NRG Aztreonam susceptibility test by minimum inhibitory concentration <= NRG Extended spectrum beta lactamase (ESBL) producing bacteria susceptibility test by minimum inhibitory concentration - NR Amikacin susceptibility test by minimum inhibitory concentration S [facility] Bacterial susceptibility panel - 07/31/16 20:55 Gentamicin susceptibility test by minimum inhibitory concentration >= NRG Trimethoprim/sulfamethoxazole susceptibility test by minimum inhibitoryconcentration >= NRG Ampicillin susceptibility test by minimum inhibitory concentration >= NRG Tobramycin susceptibility test by minimum inhibitory concentration 8 NRG Cefazolin susceptibility test by minimum inhibitory concentration <= NRG Ceftriaxone susceptibility test by minimum inhibitory concentration <= NRG Ampicillin/sulbactam susceptibility test by minimum inhibitory concentration 16 NRG Piperacillin/tazobactam susceptibility test by minimum inhibitory concentration <= NRG Ciprofloxacin susceptibility test by minimum inhibitory concentration >= NRG Meropenem susceptibility test by minimum inhibitory concentration <= NRG Nitrofurantoin susceptibility test by minimum inhibitory concentration <= NRG Aztreonam susceptibility test by minimum inhibitory concentration <= NRG Extended spectrum beta lactamase (ESBL) producing bacteria susceptibility test by minimum inhibitory concentration - NRG Amikacin susceptibility test by minimum inhibitory concentration S NRG Complete blood count (CBC) with automated white blood cell (WBC) differential - 08/14/16 16:07 Blood leukocytes automated count (number/volume) 26.7 10*3/ uL 4.3-11.0 Blood erythrocytes automated count (number/volume) 4.36 10*6 /uL 4.35-5.85 Venous blood hemoglobin measurement (mass/volume) 12.8 g/dL 11.5-16.0 Blood hematocrit (volume fraction) 39 % 35-52 Automated erythrocyte mean corpuscular volume 90 [foz_us] 80-99 Automated erythrocyte mean corpuscular hemoglobin (mass per erythrocyte) 29 pg 25-34 Automated erythrocyte mean corpuscular hemoglobin concentration measurement ( mass/volume) 33 g/dL 32-36 Automated erythrocyte distribution width ratio 14.6 % 10.0-14.5 Automated blood platelet count (count/volume) 310 10*3/uL 130-400 Automated blood platelet mean volume measurement 11.8 [foz_ us] 7.4-10.4 Automated blood neutrophils/100 leukocytes 75 % 42-75 Automated blood lymphocytes/100 leukocytes 12 % 12-44 Blood monocytes/100 leukocytes 10 % 0-12 Automated blood eosinophils/100 leukocytes 4 % 0-10 Automated blood basophils/100 leukocytes 0 % 0-10 Blood neutrophils automated count (number/volume) 20.0 10*3 1.8-7.8 Blood lymphocytes automated count (number/volume) 3.2 10*3 1.0-4.0 Blood monocytes automated count (number/volume) 2.5 10*3 0.0-1.0 Automated eosinophil count 1.0 10*3/uL 0.0-0.3 Automated blood basophil count (count/volume) 0.0 10*3/uL 0.0-0.1 Blood lactic acid measurement (moles/volume) - 08/14/16 16:07 Blood lactic acid measurement (moles/volume) 2.2 mmol/L 0.5-2.0 Blood manual differential performed detection - 08/14/16 16:07 Blood monocytes/100 leukocytes 7 % NRG Manual blood segmented neutrophils/100 leukocytes 79 % NRG Blood band neutrophils/100 leukocytes 4 % NRG Manual blood lymphocytes/100 leukocytes 9 % NRG Manual eosinophils/100 leukocytes in nose 1 % NRG Manual blood basophils/100 leukocytes 0 % NRG Blood erythrocyte morphology finding identification NORMAL NR Comprehensive metabolic panel - 08/14/16 16:07 Serum or plasma sodium measurement (moles/volume) 138 mmol/ L 135-145 Serum or plasma potassium measurement (moles/volume) 3.9 mmol/L 3.6-5.0 Serum or plasma chloride measurement (moles/volume) 103 mmol /L 98-107 Carbon dioxide 24 mmol/L 21-32 Serum or plasma anion gap determination (moles/volume) 11 mmol/L 5-14 Serum or plasma urea nitrogen measurement (mass/volume) 14 mg/dL 7-18 Serum or plasma creatinine measurement (mass/volume) 0.89 mg /dL 0.60-1.30 Serum or plasma urea nitrogen/creatinine mass ratio 16 NRG Serum or plasma creatinine measurement with calculation of estimated glomerular filtration rate > NRG Serum or plasma glucose measurement (mass/volume) 129 mg/dL 70-105 Serum or plasma calcium measurement (mass/volume) 9.2 mg/dL 8.5-10.1 Serum or plasma total bilirubin measurement (mass/volume) 0.9 mg/dL 0.1-1.0 Serum or plasma alkaline phosphatase measurement (enzymatic activity/volume) 227 U/L 40-136 Serum or plasma aspartate aminotransferase measurement (enzymatic activity/ volume) 13 U/L 5-34 Serum or plasma alanine aminotransferase measurement (enzymatic activity/volume ) 17 U/L 0-55 Serum or plasma protein measurement (mass/volume) 7.5 g/dL 6.4-8.2 Serum or plasma albumin measurement (mass/volume) 3.6 g/dL 3.2-4.5 Bacterial blood culture - 08/14/16 16:07 Bacterial blood culture NG NRG Bacterial blood culture - 08/14/16 16:43 Bacterial blood culture NG NRG Complete urinalysis with reflex to culture - 08/14/16 16:46 Urine color determination YELLOW NRG Urine clarity determination SLIGHTLY CLOUDY NRG Urine pH measurement by test strip 6 5- 9 Specific gravity of urine by test strip 1.015 1.016-1.022 Urine protein assay by test strip, semi-quantitative 2+ NEGATIVE Urine glucose detection by automated test strip NEGATIVE NEGATIVE Erythrocytes detection in urine sediment by light microscopy 1+ NEGATIVE Urine ketones detection by automated test strip NEGATIVE NEGATIVE Urine nitrite detection by test strip NEGATIVE NEGATIVE Urine total bilirubin detection by test strip NEGATIVE NEGATIVE Urine urobilinogen measurement by automated test strip (mass/volume) 1 mg/dL NORMAL Urine leukocyte esterase detection by dipstick 1+ NEGATIVE Automated urine sediment erythrocyte count by microscopy (number/high power field) [HPF] NRG Automated urine sediment leukocyte count by microscopy (number/high power field ) [HPF] NRG Bacteria detection in urine sediment by light microscopy NONE NRG Squamous epithelial cells detection in urine sediment by light microscopy 2-5 NRG Crystals detection in urine sediment by light microscopy NONE NRG Casts detection in urine sediment by light microscopy NONE NRG Mucus detection in urine sediment by light microscopy NEGATIVE NRG Complete urinalysis with reflex to culture NO NRG Serum or plasma lactate measurement (moles/volume) - 08/14/16 18:09 Serum or plasma lactate measurement (moles/volume) 1.0 mmol/ L 0.5-2.0 Complete blood count (CBC) with automated white blood cell (WBC) differential - 08/15/16 04:06 Blood leukocytes automated count (number/volume) 23.4 10*3/ uL 4.3-11.0 Blood erythrocytes automated count (number/volume) 3.89 10*6 /uL 4.35-5.85 Venous blood hemoglobin measurement (mass/volume) 11.5 g/dL 11.5-16.0 Blood hematocrit (volume fraction) 35 % 35-52 Automated erythrocyte mean corpuscular volume 91 [foz_us] 80-99 Automated erythrocyte mean corpuscular hemoglobin (mass per erythrocyte) 30 pg 25-34 Automated erythrocyte mean corpuscular hemoglobin concentration measurement ( mass/volume) 33 g/dL 32-36 Automated erythrocyte distribution width ratio 14.5 % 10.0-14.5 Automated blood platelet count (count/volume) 249 10*3/uL 130-400 Automated blood platelet mean volume measurement 12.1 [foz_ us] 7.4-10.4 Automated blood neutrophils/100 leukocytes 70 % 42-75 Automated blood lymphocytes/100 leukocytes 14 % 12-44 Blood monocytes/100 leukocytes 10 % 0-12 Automated blood eosinophils/100 leukocytes 6 % 0-10 Automated blood basophils/100 leukocytes 0 % 0-10 Blood neutrophils automated count (number/volume) 16.4 10*3 1.8-7.8 Blood lymphocytes automated count (number/volume) 3.3 10*3 1.0-4.0 Blood monocytes automated count (number/volume) 2.4 10*3 0.0-1.0 Automated eosinophil count 1.4 10*3/uL 0.0-0.3 Automated blood basophil count (count/volume) 0.0 10*3/uL 0.0-0.1 Complete blood count (CBC) with automated white blood cell (WBC) differential - 08/16/16 06:08 Blood leukocytes automated count (number/volume) 13.1 10*3/ uL 4.3-11.0 Blood erythrocytes automated count (number/volume) 3.77 10*6 /uL 4.35-5.85 Venous blood hemoglobin measurement (mass/volume) 11.2 g/dL 11.5-16.0 Blood hematocrit (volume fraction) 34 % 35-52 Automated erythrocyte mean corpuscular volume 91 [foz_us] 80-99 Automated erythrocyte mean corpuscular hemoglobin (mass per erythrocyte) 30 pg 25-34 Automated erythrocyte mean corpuscular hemoglobin concentration measurement ( mass/volume) 33 g/dL 32-36 Automated erythrocyte distribution width ratio 14.6 % 10.0-14.5 Automated blood platelet count (count/volume) 281 10*3/uL 130-400 Automated blood platelet mean volume measurement 11.7 [foz_ us] 7.4-10.4 Automated blood neutrophils/100 leukocytes 61 % 42-75 Automated blood lymphocytes/100 leukocytes 15 % 12-44 Blood monocytes/100 leukocytes 11 % 0-12 Automated blood eosinophils/100 leukocytes 12 % 0-10 Automated blood basophils/100 leukocytes 0 % 0-10 Blood neutrophils automated count (number/volume) 8.0 10*3 1.8-7.8 Blood lymphocytes automated count (number/volume) 2.0 10*3 1.0-4.0 Blood monocytes automated count (number/volume) 1.5 10*3 0.0-1.0 Automated eosinophil count 1.6 10*3/uL 0.0-0.3 Automated blood basophil count (count/volume) 0.0 10*3/uL 0.0-0.1 Blood manual differential performed detection - 08/16/16 06:08 Blood monocytes/100 leukocytes 7 % NRG Manual blood segmented neutrophils/100 leukocytes 62 % NRG Blood band neutrophils/100 leukocytes 0 % NRG Manual blood lymphocytes/100 leukocytes 22 % NRG Manual eosinophils/100 leukocytes in nose 9 % NRG Manual blood basophils/100 leukocytes 0 % NRG Blood erythrocyte morphology finding identification NORMAL [facility] Comprehensive metabolic panel - 08/16/16 06:08 Serum or plasma sodium measurement (moles/volume) 138 mmol/ L 135-145 Serum or plasma potassium measurement (moles/volume) 3.8 mmol/L 3.6-5.0 Serum or plasma chloride measurement (moles/volume) 110 mmol /L 98-107 Carbon dioxide 19 mmol/L 21-32 Serum or plasma anion gap determination (moles/volume) 9 mmol/L 5-14 Serum or plasma urea nitrogen measurement (mass/volume) 10 mg/dL 7-18 Serum or plasma creatinine measurement (mass/volume) 0.66 mg /dL 0.60-1.30 Serum or plasma urea nitrogen/creatinine mass ratio 15 NRG Serum or plasma creatinine measurement with calculation of estimated glomerular filtration rate > NRG Serum or plasma glucose measurement (mass/volume) 98 mg/dL 70-105 Serum or plasma calcium measurement (mass/volume) 8.3 mg/dL 8.5-10.1 Serum or plasma total bilirubin measurement (mass/volume) 1.2 mg/dL 0.1-1.0 Serum or plasma alkaline phosphatase measurement (enzymatic activity/volume) 170 U/L 40-136 Serum or plasma aspartate aminotransferase measurement (enzymatic activity/ volume) 15 U/L 5-34 Serum or plasma alanine aminotransferase measurement (enzymatic activity/volume ) 17 U/L 0-55 Serum or plasma protein measurement (mass/volume) 6.1 g/dL 6.4-8.2 Serum or plasma albumin measurement (mass/volume) 2.8 g/dL 3.2-4.5 C DIFFICILE AG + TOXIN A/B. - 08/22/16 08:05 RESULTS NEGATIVE FOR ANTIGEN AND TOXIN A/B NRG Serum or plasma lithium measurement (moles/volume) - 01/25/17 03:05 BNP level 98.6 pg/mL <100.0 Methicillin resistant Staphylococcus aureus (MRSA) screening culture - 11:30 Methicillin resistant Staphylococcus aureus (MRSA) screening culture NEG NRG PT panel in platelet poor plasma by coagulation assay - 01/25/17 20:25 Prothrombin time (PT) in platelet poor plasma by coagulation assay 13.7 s 12.2-14.7 INR in platelet poor plasma or blood by coagulation assay 1.1 0.8-1.4 Activated partial thromboplastin time (aPTT) in platelet poor plasma bycoagulation assay - 01/25/17 20:25 Activated partial thromboplastin time (aPTT) in platelet poor plasma bycoagulation assay 29 s 24-35 Comprehensive metabolic panel - 01/25/17 20:25 Serum or plasma sodium measurement (moles/volume) 137 mmol/ L 135-145 Serum or plasma potassium measurement (moles/volume) 4.3 mmol/L 3.6-5.0 Serum or plasma chloride measurement (moles/volume) 102 mmol /L 98-107 Carbon dioxide 23 mmol/L 21-32 Serum or plasma anion gap determination (moles/volume) 12 mmol/L 5-14 Serum or plasma urea nitrogen measurement (mass/volume) 14 mg/dL 7-18 Serum or plasma creatinine measurement (mass/volume) 0.94 mg /dL 0.60-1.30 Serum or plasma urea nitrogen/creatinine mass ratio 15 NRG Serum or plasma creatinine measurement with calculation of estimated glomerular filtration rate 59 NRG Serum or plasma glucose measurement (mass/volume) 136 mg/dL 70-105 Serum or plasma calcium measurement (mass/volume) 9.0 mg/dL 8.5-10.1 Serum or plasma total bilirubin measurement (mass/volume) 0.4 mg/dL 0.1-1.0 Serum or plasma alkaline phosphatase measurement (enzymatic activity/volume) 87 U/L 40-136 Serum or plasma aspartate aminotransferase measurement (enzymatic activity/ volume) 24 U/L 5-34 Serum or plasma alanine aminotransferase measurement (enzymatic activity/volume ) 18 U/L 0-55 Serum or plasma protein measurement (mass/volume) 7.8 g/dL 6.4-8.2 Serum or plasma albumin measurement (mass/volume) 3.5 g/dL 3.2-4.5 Magnesium - 01/25/17 20:25 Magnesium 1.8 mg/dL 1.8-2.4 Serum or plasma creatine kinase measurement (enzymatic activity/volume) - 01/25 20:25 Serum or plasma creatine kinase measurement (enzymatic activity/volume) 42 U/L 29-168 Blood lactic acid measurement (moles/volume) - 01/25/17 20:25 Blood lactic acid measurement (moles/volume) 1.99 mmol/L 0.50-2.00 Serum or plasma creatine kinase MB measurement (enzymatic activity/volume) - 20:25 Serum or plasma creatine kinase MB measurement (enzymatic activity/volume) 0.9 ng/mL <6.6 Serum or plasma troponin i.cardiac measurement (mass/volume) - 01/25/17 20:25 Serum or plasma troponin i.cardiac measurement (mass/volume) < ng/mL <0.30 Serum or plasma thyrotropin measurement by detection limit <=0.05 miu/l (units/ volume) - 01/25/17 20:25 Serum or plasma thyrotropin measurement by detection limit <=0.05 miu/l (units/ volume) 0.77 u[iU]/mL 0.35-4.94 Bacterial blood culture - 01/25/17 20:25 Bacterial blood culture NG NRG Complete blood count (CBC) with automated white blood cell (WBC) differential - 01/25/17 20:40 Blood leukocytes automated count (number/volume) 14.9 10*3/ uL 4.3-11.0 Blood erythrocytes automated count (number/volume) 4.59 10*6 /uL 4.35-5.85 Venous blood hemoglobin measurement (mass/volume) 12.9 g/dL 11.5-16.0 Blood hematocrit (volume fraction) 41 % 35-52 Automated erythrocyte mean corpuscular volume 89 [foz_us] 80-99 Automated erythrocyte mean corpuscular hemoglobin (mass per erythrocyte) 28 pg 25-34 Automated erythrocyte mean corpuscular hemoglobin concentration measurement ( mass/volume) 32 g/dL 32-36 Automated erythrocyte distribution width ratio 15.6 % 10.0-14.5 Automated blood platelet count (count/volume) 246 10*3/uL 130-400 Automated blood platelet mean volume measurement 11.6 [foz_ us] 7.4-10.4 Automated blood neutrophils/100 leukocytes 80 % 42-75 Automated blood lymphocytes/100 leukocytes 4 % 12-44 Blood monocytes/100 leukocytes 14 % 0-12 Automated blood eosinophils/100 leukocytes 2 % 0-10 Automated blood basophils/100 leukocytes 0 % 0-10 Blood neutrophils automated count (number/volume) 12.0 10*3 1.8-7.8 Blood lymphocytes automated count (number/volume) 0.6 10*3 1.0-4.0 Blood monocytes automated count (number/volume) 2.1 10*3 0.0-1.0 Automated eosinophil count 0.2 10*3/uL 0.0-0.3 Automated blood basophil count (count/volume) 0.0 10*3/uL 0.0-0.1 Blood manual differential performed detection - 01/25/17 20:40 Blood monocytes/100 leukocytes 8 % NRG Manual blood segmented neutrophils/100 leukocytes 85 % NRG Blood band neutrophils/100 leukocytes 1 % NRG Manual blood lymphocytes/100 leukocytes 3 % NRG Manual eosinophils/100 leukocytes in nose 3 % NRG Manual blood basophils/100 leukocytes 0 % NRG Blood erythrocyte morphology finding identification NORMAL NRG Influenza virus A and B antigen detection - 01/25/17 21:08 FLU RESULT NEGATIVE FOR INFLUENZA A AND B ANTIGENS BY IA NRG Complete urinalysis with reflex to culture - 01/25/17 21:34 Urine color determination YELLOW NRG Urine clarity determination CLEAR NRG Urine pH measurement by test strip 6 5- 9 Specific gravity of urine by test strip 1.010 1.016-1.022 Urine protein assay by test strip, semi-quantitative 1+ NEGATIVE Urine glucose detection by automated test strip NEGATIVE NEGATIVE Erythrocytes detection in urine sediment by light microscopy 1+ NEGATIVE Urine ketones detection by automated test strip NEGATIVE NEGATIVE Urine nitrite detection by test strip POSITIVE NEGATIVE Urine total bilirubin detection by test strip NEGATIVE NEGATIVE Urine urobilinogen measurement by automated test strip (mass/volume) NORMAL NORMAL Urine leukocyte esterase detection by dipstick 2+ NEGATIVE Automated urine sediment erythrocyte count by microscopy (number/high power field) [HPF] NRG Automated urine sediment leukocyte count by microscopy (number/high power field ) [HPF] NRG Bacteria detection in urine sediment by light microscopy MODERATE NRG Squamous epithelial cells detection in urine sediment by light microscopy 2-5 NRG Crystals detection in urine sediment by light microscopy NONE NRG Casts detection in urine sediment by light microscopy NONE NRG Mucus detection in urine sediment by light microscopy NEGATIVE NRG Complete urinalysis with reflex to culture YES NRG Bacterial urine culture - 01/25/17 21:34 Bacterial urine culture [id number] NRG COLONY COUNT >100,000/ML NRG FTX;REPORTABLE SENSITIVITY REPORTED 01/26/17 16:35 NR Bacterial susceptibility panel - 01/25/17 21:34 Gentamicin susceptibility test by minimum inhibitory concentration <= NRG Trimethoprim/sulfamethoxazole susceptibility test by minimum inhibitoryconcentration >= NRG Ampicillin susceptibility test by minimum inhibitory concentration 4 NRG Tobramycin susceptibility test by minimum inhibitory concentration <= NRG Cefazolin susceptibility test by minimum inhibitory concentration <= NRG Ceftriaxone susceptibility test by minimum inhibitory concentration <= NRG Ampicillin/sulbactam susceptibility test by minimum inhibitory concentration 4 NRG Piperacillin/tazobactam susceptibility test by minimum inhibitory concentration <= NRG Ciprofloxacin susceptibility test by minimum inhibitory concentration >= NRG Meropenem susceptibility test by minimum inhibitory concentration <= NRG Nitrofurantoin susceptibility test by minimum inhibitory concentration <= NRG Aztreonam susceptibility test by minimum inhibitory concentration <= NRG Extended spectrum beta lactamase (ESBL) producing bacteria susceptibility test by minimum inhibitory concentration - NRG Complete blood count (CBC) with automated white blood cell (WBC) differential - 01/26/17 03:05 Blood leukocytes automated count (number/volume) 10.0 10*3/ uL 4.3-11.0 Blood erythrocytes automated count (number/volume) 3.97 10*6 /uL 4.35-5.85 Venous blood hemoglobin measurement (mass/volume) 11.0 g/dL 11.5-16.0 Blood hematocrit (volume fraction) 35 % 35-52 Automated erythrocyte mean corpuscular volume 89 [foz_us] 80-99 Automated erythrocyte mean corpuscular hemoglobin (mass per erythrocyte) 28 pg 25-34 Automated erythrocyte mean corpuscular hemoglobin concentration measurement ( mass/volume) 31 g/dL 32-36 Automated erythrocyte distribution width ratio 15.4 % 10.0-14.5 Automated blood platelet count (count/volume) 225 10*3/uL 130-400 Automated blood platelet mean volume measurement 11.6 [foz_ us] 7.4-10.4 Automated blood neutrophils/100 leukocytes 65 % 42-75 Automated blood lymphocytes/100 leukocytes 12 % 12-44 Blood monocytes/100 leukocytes 23 % 0-12 Automated blood eosinophils/100 leukocytes 1 % 0-10 Automated blood basophils/100 leukocytes 0 % 0-10 Blood neutrophils automated count (number/volume) 6.4 10*3 1.8-7.8 Blood lymphocytes automated count (number/volume) 1.2 10*3 1.0-4.0 Blood monocytes automated count (number/volume) 2.2 10*3 0.0-1.0 Automated eosinophil count 0.1 10*3/uL 0.0-0.3 Automated blood basophil count (count/volume) 0.0 10*3/uL 0.0-0.1 Serum or plasma troponin i.cardiac measurement (mass/volume) - 01/26/17 03:05 Serum or plasma troponin i.cardiac measurement (mass/volume) < ng/mL <0.30 Myoglobin, serum - 01/26/17 03:05 Myoglobin, serum 59.9 ng/mL 10.0-92.0 Comprehensive metabolic panel - 01/26/17 03:05 Serum or plasma sodium measurement (moles/volume) 141 mmol/ L 135-145 Serum or plasma potassium measurement (moles/volume) 3.7 mmol/L 3.6-5.0 Serum or plasma chloride measurement (moles/volume) 107 mmol /L 98-107 Carbon dioxide 24 mmol/L 21-32 Serum or plasma anion gap determination (moles/volume) 10 mmol/L 5-14 Serum or plasma urea nitrogen measurement (mass/volume) 9 mg /dL 7-18 Serum or plasma creatinine measurement (mass/volume) 0.81 mg /dL 0.60-1.30 Serum or plasma urea nitrogen/creatinine mass ratio 11 NRG Serum or plasma creatinine measurement with calculation of estimated glomerular filtration rate > NRG Serum or plasma glucose measurement (mass/volume) 127 mg/dL 70-105 Serum or plasma calcium measurement (mass/volume) 8.3 mg/dL 8.5-10.1 Serum or plasma total bilirubin measurement (mass/volume) 0.4 mg/dL 0.1-1.0 Serum or plasma alkaline phosphatase measurement (enzymatic activity/volume) 73 U/L 40-136 Serum or plasma aspartate aminotransferase measurement (enzymatic activity/ volume) 21 U/L 5-34 Serum or plasma alanine aminotransferase measurement (enzymatic activity/volume ) 14 U/L 0-55 Serum or plasma protein measurement (mass/volume) 6.7 g/dL 6.4-8.2 Serum or plasma albumin measurement (mass/volume) 3.0 g/dL 3.2-4.5 Serum or plasma phosphate measurement (mass/volume) - 01/26/17 03:05 Serum or plasma phosphate measurement (mass/volume) 3.0 mg/ dL 2.3-4.7 Magnesium - 01/26/17 03:05 Magnesium 1.7 mg/dL 1.8-2.4 Lipid 1996 panel - 01/26/17 03:05 Serum or plasma triglyceride measurement (mass/volume) 104 mg/dL <150 Serum or plasma cholesterol measurement (mass/volume) 129 mg /dL < 200 Serum or plasma cholesterol in HDL measurement (mass/volume) 34 mg/dL 40-60 Cholesterol in LDL [mass/volume] in serum or plasma by direct assay 72 mg/dL 1-129 Serum or plasma cholesterol in VLDL measurement (mass/volume) 21 mg/dL 5-40 Complete blood count (CBC) with automated white blood cell (WBC) differential - 01/27/17 04:05 Blood leukocytes automated count (number/volume) 6.8 10*3/ uL 4.3-11.0 Blood erythrocytes automated count (number/volume) 3.84 10*6 /uL 4.35-5.85 Venous blood hemoglobin measurement (mass/volume) 10.7 g/dL 11.5-16.0 Blood hematocrit (volume fraction) 34 % 35-52 Automated erythrocyte mean corpuscular volume 90 [foz_us] 80-99 Automated erythrocyte mean corpuscular hemoglobin (mass per erythrocyte) 28 pg 25-34 Automated erythrocyte mean corpuscular hemoglobin concentration measurement ( mass/volume) 31 g/dL 32-36 Automated erythrocyte distribution width ratio 15.8 % 10.0-14.5 Automated blood platelet count (count/volume) 171 10*3/uL 130-400 Automated blood platelet mean volume measurement 11.8 [foz_ us] 7.4-10.4 Automated blood neutrophils/100 leukocytes 58 % 42-75 Automated blood lymphocytes/100 leukocytes 22 % 12-44 Blood monocytes/100 leukocytes 19 % 0-12 Automated blood eosinophils/100 leukocytes 1 % 0-10 Automated blood basophils/100 leukocytes 0 % 0-10 Blood neutrophils automated count (number/volume) 4.0 10*3 1.8-7.8 Blood lymphocytes automated count (number/volume) 1.5 10*3 1.0-4.0 Blood monocytes automated count (number/volume) 1.3 10*3 0.0-1.0 Automated eosinophil count 0.0 10*3/uL 0.0-0.3 Automated blood basophil count (count/volume) 0.0 10*3/uL 0.0-0.1 Whole blood basic metabolic panel - 01/27/17 04:05 Serum or plasma sodium measurement (moles/volume) 136 mmol/ L 135-145 Serum or plasma potassium measurement (moles/volume) 4.2 mmol/L 3.6-5.0 Serum or plasma chloride measurement (moles/volume) 106 mmol /L 98-107 Carbon dioxide 21 mmol/L 21-32 Serum or plasma anion gap determination (moles/volume) 9 mmol/L 5-14 Serum or plasma urea nitrogen measurement (mass/volume) 7 mg /dL 7-18 Serum or plasma creatinine measurement (mass/volume) 0.81 mg /dL 0.60-1.30 Serum or plasma urea nitrogen/creatinine mass ratio 9 NRG Serum or plasma creatinine measurement with calculation of estimated glomerular filtration rate > NRG Serum or plasma glucose measurement (mass/volume) 102 mg/dL 70-105 Serum or plasma calcium measurement (mass/volume) 7.7 mg/dL 8.5-10.1 Serum or plasma phosphate measurement (mass/volume) - 01/27/17 04:05 Serum or plasma phosphate measurement (mass/volume) 3.6 mg/ dL 2.3-4.7 Magnesium - 01/27/17 04:05 Magnesium 1.7 mg/dL 1.8-2.4 Complete blood count (CBC) with automated white blood cell (WBC) differential - 01/28/17 05:22 Blood leukocytes automated count (number/volume) 4.7 10*3/ uL 4.3-11.0 Blood erythrocytes automated count (number/volume) 4.32 10*6 /uL 4.35-5.85 Venous blood hemoglobin measurement (mass/volume) 12.1 g/dL 11.5-16.0 Blood hematocrit (volume fraction) 38 % 35-52 Automated erythrocyte mean corpuscular volume 88 [foz_us] 80-99 Automated erythrocyte mean corpuscular hemoglobin (mass per erythrocyte) 28 pg 25-34 Automated erythrocyte mean corpuscular hemoglobin concentration measurement ( mass/volume) 32 g/dL 32-36 Automated erythrocyte distribution width ratio 15.7 % 10.0-14.5 Automated blood platelet count (count/volume) 177 10*3/uL 130-400 Automated blood platelet mean volume measurement 11.9 [foz_ us] 7.4-10.4 Automated blood neutrophils/100 leukocytes 52 % 42-75 Automated blood lymphocytes/100 leukocytes 28 % 12-44 Blood monocytes/100 leukocytes 17 % 0-12 Automated blood eosinophils/100 leukocytes 2 % 0-10 Automated blood basophils/100 leukocytes 0 % 0-10 Blood neutrophils automated count (number/volume) 2.5 10*3 1.8-7.8 Blood lymphocytes automated count (number/volume) 1.3 10*3 1.0-4.0 Blood monocytes automated count (number/volume) 0.8 10*3 0.0-1.0 Automated eosinophil count 0.1 10*3/uL 0.0-0.3 Automated blood basophil count (count/volume) 0.0 10*3/uL 0.0-0.1 Whole blood basic metabolic panel - 01/28/17 05:22 Serum or plasma sodium measurement (moles/volume) 136 mmol/ L 135-145 Serum or plasma potassium measurement (moles/volume) 4.0 mmol/L 3.6-5.0 Serum or plasma chloride measurement (moles/volume) 102 mmol /L 98-107 Carbon dioxide 22 mmol/L 21-32 Serum or plasma anion gap determination (moles/volume) 12 mmol/L 5-14 Serum or plasma urea nitrogen measurement (mass/volume) 8 mg /dL 7-18 Serum or plasma creatinine measurement (mass/volume) 0.81 mg /dL 0.60-1.30 Serum or plasma urea nitrogen/creatinine mass ratio 10 NRG Serum or plasma creatinine measurement with calculation of estimated glomerular filtration rate > NRG Serum or plasma glucose measurement (mass/volume) 101 mg/dL 70-105 Serum or plasma calcium measurement (mass/volume) 8.0 mg/dL 8.5-10.1 Serum or plasma phosphate measurement (mass/volume) - 01/28/17 05:22 Serum or plasma phosphate measurement (mass/volume) 3.1 mg/ dL 2.3-4.7 Magnesium - 01/28/17 05:22 Magnesium 2.0 mg/dL 1.8-2.4 Complete blood count (CBC) with automated white blood cell (WBC) differential - 01/29/17 09:26 Blood leukocytes automated count (number/volume) 6.2 10*3/ uL 4.3-11.0 Blood erythrocytes automated count (number/volume) 4.67 10*6 /uL 4.35-5.85 Venous blood hemoglobin measurement (mass/volume) 13.1 g/dL 11.5-16.0 Blood hematocrit (volume fraction) 41 % 35-52 Automated erythrocyte mean corpuscular volume 88 [foz_us] 80-99 Automated erythrocyte mean corpuscular hemoglobin (mass per erythrocyte) 28 pg 25-34 Automated erythrocyte mean corpuscular hemoglobin concentration measurement ( mass/volume) 32 g/dL 32-36 Automated erythrocyte distribution width ratio 15.8 % 10.0-14.5 Automated blood platelet count (count/volume) 165 10*3/uL 130-400 Automated blood platelet mean volume measurement 12.2 [foz_ us] 7.4-10.4 Automated blood neutrophils/100 leukocytes 76 % 42-75 Automated blood lymphocytes/100 leukocytes 10 % 12-44 Blood monocytes/100 leukocytes 5 % 0-12 Automated blood eosinophils/100 leukocytes 8 % 0-10 Automated blood basophils/100 leukocytes 0 % 0-10 Blood neutrophils automated count (number/volume) 4.7 10*3 1.8-7.8 Blood lymphocytes automated count (number/volume) 0.6 10*3 1.0-4.0 Blood monocytes automated count (number/volume) 0.3 10*3 0.0-1.0 Automated eosinophil count 0.5 10*3/uL 0.0-0.3 Automated blood basophil count (count/volume) 0.0 10*3/uL 0.0-0.1 Bacterial blood culture - 01/29/17 09:26 Bacterial blood culture NG NRG Blood lactic acid measurement (moles/volume) - 01/29/17 09:59 Blood lactic acid measurement (moles/volume) 2.13 mmol/L 0.50-2.00 Comprehensive metabolic panel - 01/29/17 09:59 Serum or plasma sodium measurement (moles/volume) 133 mmol/ L 135-145 Serum or plasma potassium measurement (moles/volume) 4.3 mmol/L 3.6-5.0 Serum or plasma chloride measurement (moles/volume) 101 mmol /L 98-107 Carbon dioxide 22 mmol/L 21-32 Serum or plasma anion gap determination (moles/volume) 10 mmol/L 5-14 Serum or plasma urea nitrogen measurement (mass/volume) 17 mg/dL 7-18 Serum or plasma creatinine measurement (mass/volume) 1.21 mg /dL 0.60-1.30 Serum or plasma urea nitrogen/creatinine mass ratio 14 NRG Serum or plasma creatinine measurement with calculation of estimated glomerular filtration rate 44 NRG Serum or plasma glucose measurement (mass/volume) 118 mg/dL 70-105 Serum or plasma calcium measurement (mass/volume) 8.4 mg/dL 8.5-10.1 Serum or plasma total bilirubin measurement (mass/volume) 0.5 mg/dL 0.1-1.0 Serum or plasma alkaline phosphatase measurement (enzymatic activity/volume) 75 U/L 40-136 Serum or plasma aspartate aminotransferase measurement (enzymatic activity/ volume) 50 U/L 5-34 Serum or plasma alanine aminotransferase measurement (enzymatic activity/volume ) 21 U/L 0-55 Serum or plasma protein measurement (mass/volume) 6.9 g/dL 6.4-8.2 Serum or plasma albumin measurement (mass/volume) 2.9 g/dL 3.2-4.5 Bacterial blood culture - 01/29/17 09:59 Bacterial blood culture NG NRG Serum or plasma lactate measurement (moles/volume) - 01/29/17 12:31 Serum or plasma lactate measurement (moles/volume) 1.68 mmol /L 0.50-2.00 Complete blood count (CBC) with automated white blood cell (WBC) differential - 02/15/17 17:10 Blood leukocytes automated count (number/volume) 14.6 10*3/ uL 4.3-11.0 Blood erythrocytes automated count (number/volume) 4.60 10*6 /uL 4.35-5.85 Venous blood hemoglobin measurement (mass/volume) 13.3 g/dL 11.5-16.0 Blood hematocrit (volume fraction) 41 % 35-52 Automated erythrocyte mean corpuscular volume 90 [foz_us] 80-99 Automated erythrocyte mean corpuscular hemoglobin (mass per erythrocyte) 29 pg 25-34 Automated erythrocyte mean corpuscular hemoglobin concentration measurement ( mass/volume) 32 g/dL 32-36 Automated erythrocyte distribution width ratio 16.5 % 10.0-14.5 Automated blood platelet count (count/volume) 277 10*3/uL 130-400 Automated blood platelet mean volume measurement 12.1 [foz_ us] 7.4-10.4 Automated blood neutrophils/100 leukocytes 63 % 42-75 Automated blood lymphocytes/100 leukocytes 22 % 12-44 Blood monocytes/100 leukocytes 11 % 0-12 Automated blood eosinophils/100 leukocytes 4 % 0-10 Automated blood basophils/100 leukocytes 0 % 0-10 Blood neutrophils automated count (number/volume) 9.2 10*3 1.8-7.8 Blood lymphocytes automated count (number/volume) 3.2 10*3 1.0-4.0 Blood monocytes automated count (number/volume) 1.6 10*3 0.0-1.0 Automated eosinophil count 0.6 10*3/uL 0.0-0.3 Automated blood basophil count (count/volume) 0.0 10*3/uL 0.0-0.1 Comprehensive metabolic panel - 02/15/17 17:10 Serum or plasma sodium measurement (moles/volume) 142 mmol/ L 135-145 Serum or plasma potassium measurement (moles/volume) 4.2 mmol/L 3.6-5.0 Serum or plasma chloride measurement (moles/volume) 106 mmol /L 98-107 Carbon dioxide 22 mmol/L 21-32 Serum or plasma anion gap determination (moles/volume) 14 mmol/L 5-14 Serum or plasma urea nitrogen measurement (mass/volume) 8 mg /dL 7-18 Serum or plasma creatinine measurement (mass/volume) 0.81 mg /dL 0.60-1.30 Serum or plasma urea nitrogen/creatinine mass ratio 10 NRG Serum or plasma creatinine measurement with calculation of estimated glomerular filtration rate > NRG Serum or plasma glucose measurement (mass/volume) 133 mg/dL 70-105 Serum or plasma calcium measurement (mass/volume) 9.3 mg/dL 8.5-10.1 Serum or plasma total bilirubin measurement (mass/volume) 0.8 mg/dL 0.1-1.0 Serum or plasma alkaline phosphatase measurement (enzymatic activity/volume) 84 U/L 40-136 Serum or plasma aspartate aminotransferase measurement (enzymatic activity/ volume) 27 U/L 5-34 Serum or plasma alanine aminotransferase measurement (enzymatic activity/volume ) 21 U/L 0-55 Serum or plasma protein measurement (mass/volume) 7.4 g/dL 6.4-8.2 Serum or plasma albumin measurement (mass/volume) 3.5 g/dL 3.2-4.5 Serum or plasma C reactive protein measurement (mass/volume) - 02/15/17 17:10 Serum or plasma C reactive protein measurement (mass/volume) 2.73 mg/dL 0.00-0.50 Serum or plasma lithium measurement (moles/volume) - 02/15/17 17:10 BNP level 54.3 pg/mL <100.0 Blood manual differential performed detection - 02/15/17 17:10 Blood monocytes/100 leukocytes 10 % NRG Manual blood segmented neutrophils/100 leukocytes 68 % NRG Blood band neutrophils/100 leukocytes 0 % NRG Manual blood lymphocytes/100 leukocytes 19 % NRG Manual eosinophils/100 leukocytes in nose 2 % NRG Manual blood basophils/100 leukocytes 1 % NRG Blood anisocytosis detection by light microscopy SLIGHT NRG Blood spherocytes detection by light microscopy SLIGHT NRG Blood lactic acid measurement (moles/volume) - 02/15/17 17:17 Blood lactic acid measurement (moles/volume) 2.62 mmol/L 0.50-2.00 Bacterial blood culture - 02/15/17 17:17 QUANTITY OF GROWTH Isolated NR Bacterial blood culture [id number] NR Complete urinalysis with reflex to culture - 02/15/17 17:26 Urine color determination YELLOW NRG Urine clarity determination CLEAR NRG Urine pH measurement by test strip 6.5 5 -9 Specific gravity of urine by test strip 1.015 1.016-1.022 Urine protein assay by test strip, semi-quantitative 1+ NEGATIVE Urine glucose detection by automated test strip NEGATIVE NEGATIVE Erythrocytes detection in urine sediment by light microscopy NEGATIVE NEGATIVE Urine ketones detection by automated test strip NEGATIVE NEGATIVE Urine nitrite detection by test strip NEGATIVE NEGATIVE Urine total bilirubin detection by test strip NEGATIVE NEGATIVE Urine urobilinogen measurement by automated test strip (mass/volume) NORMAL NORMAL Urine leukocyte esterase detection by dipstick 3+ NEGATIVE Automated urine sediment erythrocyte count by microscopy (number/high power field) NONE NRG Automated urine sediment leukocyte count by microscopy (number/high power field ) > [HPF] NRG Bacteria detection in urine sediment by light microscopy FEW NRG Squamous epithelial cells detection in urine sediment by light microscopy 10-25 NRG Crystals detection in urine sediment by light microscopy NONE NRG Casts detection in urine sediment by light microscopy NONE NRG Mucus detection in urine sediment by light microscopy NEGATIVE NRG Complete urinalysis with reflex to culture YES NRG Bacterial urine culture - 02/15/17 17:26 Bacterial urine culture [id number] NRG COLONY COUNT 10,000/ML - 100,000/ML NRG FTX;REPORTABLE SENSITIVITY REPORTED AT 0725, 5-1-17 NRG Bacterial susceptibility panel - 02/15/17 17:26 Gentamicin susceptibility test by minimum inhibitory concentration S NRG Vancomycin susceptibility test by minimum inhibitory concentration 1 NRG Levofloxacin susceptibility test by minimum inhibitory concentration 0.5 NRG Tetracycline susceptibility test by minimum inhibitory concentration <= NRG Ampicillin susceptibility test by minimum inhibitory concentration <= NRG Nitrofurantoin susceptibility test by minimum inhibitory concentration <= NRG Linezolid susceptibility test by minimum inhibitory concentration 2 NRG Serum or plasma lactate measurement (moles/volume) - 02/15/17 19:17 Serum or plasma lactate measurement (moles/volume) 1.33 mmol /L 0.50-2.00 Bacterial blood culture - 02/15/17 19:17 Bacterial blood culture NG NRG Methicillin resistant Staphylococcus aureus (MRSA) screening culture - 21:20 Methicillin resistant Staphylococcus aureus (MRSA) screening culture NEG NRG Complete blood count (CBC) with automated white blood cell (WBC) differential - 02/16/17 03:43 Blood leukocytes automated count (number/volume) 12.5 10*3/ uL 4.3-11.0 Blood erythrocytes automated count (number/volume) 3.85 10*6 /uL 4.35-5.85 Venous blood hemoglobin measurement (mass/volume) 10.9 g/dL 11.5-16.0 Blood hematocrit (volume fraction) 35 % 35-52 Automated erythrocyte mean corpuscular volume 91 [foz_us] 80-99 Automated erythrocyte mean corpuscular hemoglobin (mass per erythrocyte) 28 pg 25-34 Automated erythrocyte mean corpuscular hemoglobin concentration measurement ( mass/volume) 31 g/dL 32-36 Automated erythrocyte distribution width ratio 16.5 % 10.0-14.5 Automated blood platelet count (count/volume) 199 10*3/uL 130-400 Automated blood platelet mean volume measurement 12.3 [foz_ us] 7.4-10.4 Automated blood neutrophils/100 leukocytes 69 % 42-75 Automated blood lymphocytes/100 leukocytes 17 % 12-44 Blood monocytes/100 leukocytes 10 % 0-12 Automated blood eosinophils/100 leukocytes 5 % 0-10 Automated blood basophils/100 leukocytes 0 % 0-10 Blood neutrophils automated count (number/volume) 8.6 10*3 1.8-7.8 Blood lymphocytes automated count (number/volume) 2.1 10*3 1.0-4.0 Blood monocytes automated count (number/volume) 1.2 10*3 0.0-1.0 Automated eosinophil count 0.6 10*3/uL 0.0-0.3 Automated blood basophil count (count/volume) 0.0 10*3/uL 0.0-0.1 Comprehensive metabolic panel - 02/16/17 03:43 Serum or plasma sodium measurement (moles/volume) 143 mmol/ L 135-145 Serum or plasma potassium measurement (moles/volume) 4.3 mmol/L 3.6-5.0 Serum or plasma chloride measurement (moles/volume) 109 mmol /L 98-107 Carbon dioxide 25 mmol/L 21-32 Serum or plasma anion gap determination (moles/volume) 9 mmol/L 5-14 Serum or plasma urea nitrogen measurement (mass/volume) 6 mg /dL 7-18 Serum or plasma creatinine measurement (mass/volume) 0.69 mg /dL 0.60-1.30 Serum or plasma urea nitrogen/creatinine mass ratio 9 NRG Serum or plasma creatinine measurement with calculation of estimated glomerular filtration rate > NRG Serum or plasma glucose measurement (mass/volume) 101 mg/dL 70-105 Serum or plasma calcium measurement (mass/volume) 8.2 mg/dL 8.5-10.1 Serum or plasma total bilirubin measurement (mass/volume) 1.0 mg/dL 0.1-1.0 Serum or plasma alkaline phosphatase measurement (enzymatic activity/volume) 69 U/L 40-136 Serum or plasma aspartate aminotransferase measurement (enzymatic activity/ volume) 18 U/L 5-34 Serum or plasma alanine aminotransferase measurement (enzymatic activity/volume ) 13 U/L 0-55 Serum or plasma protein measurement (mass/volume) 6.1 g/dL 6.4-8.2 Serum or plasma albumin measurement (mass/volume) 2.9 g/dL 3.2-4.5 Serum or plasma phosphate measurement (mass/volume) - 02/16/17 03:43 Serum or plasma phosphate measurement (mass/volume) 2.9 mg/ dL 2.3-4.7 Magnesium - 02/16/17 03:43 Magnesium 1.5 mg/dL 1.8-2.4 Serum or plasma C reactive protein measurement (mass/volume) - 02/16/17 03:43 Serum or plasma C reactive protein measurement (mass/volume) 3.70 mg/dL 0.00-0.50 Blood lactic acid measurement (moles/volume) - 02/16/17 03:43 Blood lactic acid measurement (moles/volume) 1.28 mmol/L 0.50-2.00 Encounters ACCT No. Visit Date/Time Discharge Status Pt. Type Provider Facility Loc./Unit Complaint [id number] 02/15/2017 18:55:00 2016 13:55:00 DIS Outpatient RIP CARPENTRE MD [facility] 4TH SEPSIS,UTI,BRONCHITIS, H/O CVA [id number] 01/29/2017 08:36:00 2016 15:29:00 DIS Emergency STEFANO DO, JOE K [facility] ER FEVER [id number] 01/25/2017 22:00:00 2016 15:05:00 DIS Inpatient RIP CARPENTER MD [facility] 4TH SEPSIS,CHEST PAIN,BRONCHITIS,UTI [id number] 08/16/2016 12:40:00 2015 13:25:00 DIS Inpatient MAE HUERTAS MD [facility] IRF DEBILITY, HX CVA WITH RIGHT HEMIPARESIS [id number] 08/14/2016 17:34:00 2015 12:35:00 DIS Inpatient NANCY FULLER DO [facility] 4TH SEPSIS,UTI RECENTLY [id number] 07/31/2016 19:40:00 2015 22:32:00 DIS Emergency DOMENIC MCGILL, JOSE M Cisse [facility] ER FALL [id number] 07/08/2015 12:29:00 2014 15:45:00 DIS Emergency CHRIS MCGILL, GEORGI S [facility] ER CHEST PAIN [id number] 06/13/2015 09:51:00 2014 16:29:00 DIS Emergency DOMENIC MCGILL, JOSE M Cisse [facility] ER MULTIPLE COMPLAINTS [id number] 06/08/2015 14:17:00 2014 23:59:59 CLS Outpatient STACIE BHATTI APRN [facility] RAD BACK PAIN,CRACKED RIBS, 599.0 [id number] 04/27/2015 14:01:00 2014 16:36:00 DIS Emergency JOSE SAINZ APRN [facility] ER DYSPNEA [id number] 04/22/2015 11:17:00 2014 13:20:00 DIS Emergency SHANIA ROSALES DO [facility] ER FALL [id number] 12/06/2014 12:21:00 2014 23:59:59 CLS Emergency KELVIN LAINEZ [facility] ER SOA [id number] 07/25/2014 14:06:00 2013 23:59:59 CLS Outpatient STACIE BHATTI APRN [facility] RAD ROUTINE [id number] 03/23/2014 16:35:00 2013 13:45:00 DIS Inpatient ALEKSANDAR MCGILL, MAE Hernandez [facility] IRF FALL AT HOME/BACK PAIN [id number] 03/20/2014 13:55:00 2013 16:35:00 DIS Inpatient RIP CARPENTER MD [facility] 4TH FALL AT HOME/BACK PAIN [id number] 03/16/2014 16:30:00 2013 13:25:00 DIS Inpatient RIP CARPENTER MD [facility] 4TH PYELONEPHRITIS;UNRESPONSIVE TO OUTPATIENT THERAPY [id number] 03/08/2014 09:29:00 2013 14:56:00 DIS Emergency JOE AGARWAL DO [facility] ER PAIN MULTIPLE AREAS [id number] 03/29/2013 13:58:00 2012 23:59:59 CLS Outpatient [id number] 03/12/2013 15:26:00 2012 15:37:00 DIS Inpatient RIP CARPENTER MD [facility] 4TH UTI
--- OUTSIDE RECORDS SUMMARY | 2017-03-02 05:40 | XMS REPORT | Continuity of Care Document ---
Author Author [facility] Organization [facility] Address Unknown Phone Unavailable Allergies Active Description Code Type Severity Reaction Onset Reported/Identified Relationship to Patient Clinical Status Yes zinc oxide [id number] Drug Allergy Moderate N/A 03/22/2014 Yes levofloxacin [id number] Drug Allergy Mild N/A 08/14/2016 Yes cephalexin [id number] Drug Allergy Unknown N/A 08/14/2016 Yes menthol [id number] Drug Allergy Unknown RASH 01/26/2017 Medications Problems [...] 438.20 LATE EFF-CEREBR DIS,HEMIPLEGIA AFFECTING 03/16/2013 RIP CARPNETER MD Ot 496 CHR AIRWAY OBSTRUCT NEC [...] E Ot 112.2 CANDIDIAS UROGENITAL NEC 03/30/2014 ALEKSADNAR MCGILL MAE E Ot 401.9 HYPERTENSION NOS [...] Ot 693.0 DRUG DERMATITIS NOS 03/30/2014 MAE HUERTAS MD Ot 715.90 OSTEOARTHROS NOS-UNSPEC 03/30/2014 MAE HUERTAS MD Ot E931.0 ADV EFF SULFONAMIDES 03/30/2014 MAE HUERTAS MD Ot V46.2 SUPPLEMENTAL OXYGEN 03/30/2014 MAE HUERTAS MD E Ot V57.89 REHABILITATION PROC NEC 09/12/2014 STACIE BHATTI E [employer]ER[employer] MARKETING ANALYST Ot V76.12 09/13/2014 STACIE BHATTI E COMMER[employer] MARKETING ANALYST Ot V76.12 12/06/2014 STACIE BHATTI E [employer]ER[employer] MARKETING ANALYST Ot V76.12 12/06/2014 KELVIN LAINEZ Ot 305.1 [...] Ot 786.09 RESPIRATORY ABNORM NEC 04/27/2015 JOSE SAINZ APRN Ot 807.03 FRACTURE THREE RIBS-CLOS 04/27/2015 [...] V58.69 OT MED,LT,CURRENT USE 06/28/2015 STACIE BHATTI E [employer]ER[employer] MARKETING ANALYST Ot 724.5 06/28/2015 STACIE BHATTI E COMMER[employer] MARKETING ANALYST Ot V15.59 07/08/2015 GEORGI PEREZ MD Ot 786.50 CHEST PAIN NOS 07/08/2015 GEORGI PEREZ MD Ot 786.52 PAINFUL RESPIRATION 07/11/2015 STACIE BHATTI E [employer]ER[employer] MARKETING ANALYST Ot 724.5 07/11/2015 STACIE BHATTI E COMMER[employer] MARKETING ANALYST Ot V15.59 07/12/2015 STACIE BHATTI E COMMER[employer] MARKETING ANALYST Ot V76.12 07/12/2015 STACIE BHATTI E COMMER[employer] MARKETING ANALYST Ot 724.5 07/12/2015 STACIE BHATTI E COMMER[employer] MARKETING ANALYST Ot V15.59 07/31/2016 JOSE M SHTEH MD, Ot I69.951 HEMIPLGA FOL UNSP CEREBVASC [...] M SHETH MD Ot Y92.[address] 07/31/2016 JOSE M SHETH MD Ot Y93.G1 ACTIVITY, FOOD PREPARATION AND CLEAN UP 07/31/2016 JOSE M SHETH MD Ot Y99.8 OTHER EXTERNAL CAUSE STATUS 07/31/2016 JOSE M SHETH MD Ot Z79.82 MCC (CURRENT) USE OF ASPIRIN 07/31/2016 JOSE M SHETH MD, Ot Z79.899 OTHER MCC (CURRENT) DRUG THERAPY 08/03/2016 JOSE M SHETH [...] M SHETH MD Ot Y92.[address] 08/03/2016 JOSE M SHETH MD Ot Y93.G1 ACTIVITY, FOOD PREPARATION AND CLEAN UP 08/03/2016 JOSE M SHETH MD Ot Y99.8 OTHER EXTERNAL CAUSE STATUS 08/03/2016 JOSE M SHETH MD Ot Z79.82 VALUE ANALYST (CURRENT) USE OF ASPIRIN 08/03/2016 JOSE M SHETH MD Ot Z79.899 OTHER VALUE ANALYST (CURRENT) DRUG THERAPY 08/06/2016 STACIE BHATTI E [employer] MARKET[employer] ANALYST Ot V76.12 OTH SCREEN MAMMO-MALIGN NEOPLASM OF NEAL 08/06/2016 STACIE BHATTI E [employer]ER[employer] MARKETING ANALYST Ot 724.5 BACKACHE NOS 08/06/2016 STACIE BHATTI E [employer]ER[employer] MARKETING ANALYST Ot V15.59 PERSONAL HISTORY OF OTHER INJURY [...] M SHETH MD Ot Y92.[address] 08/07/2016 JOSE M SHETH MD Ot Y93.G1 ACTIVITY, FOOD PREPARATION AND CLEAN UP 08/07/2016 JOSE M SHETH MD Ot Y99.8 OTHER EXTERNAL CAUSE STATUS 08/07/2016 JOSE M SHETH MD Ot Z79.82 VALUE ANALYST (CURRENT) USE OF ASPIRIN 08/07/2016 JOSE M SHETH MD Ot Z79.899 OTHER MCC (CURRENT) DRUG THERAPY 08/16/2016 NANCY FULLER DO Ot A41.9 SEPSIS, UNSPECIFIED ORGANISM 08/16/2016 NANCY FULLER DO Ot F32.9 MAJOR DEPRESSIVE DISORDER, SINGLE EPISOD 08/16/2016 ANNCY FULLER DO Ot I10 ESSENTIAL (PRIMARY) HYPERTENSION [...] Ot A41.9 SEPSIS, UNSPECIFIED ORGANISM 01/28/2017 RIP CARPNETER MD, Ot E11.51 TYPE 2 DIABETES W [...] HISTORY OF NICOTINE DEPENDENCE 01/28/2017 STACIE BHATTI E [employer] MARKETING ANALYST Ot V76.12 OTH SCREEN MAMMO-MALIGN NEOPLASM OF NEAL 01/28/2017 STACIE BHATTI E [employer]ER[employer] MARKETING ANALYST Ot 724.5 BACKACHE NOS 01/28/2017 STACIE BHATTI E [employer]ER[employer] MARKETING ANALYST Ot V15.59 PERSONAL HISTORY OF OTHER INJURY [...] CHRONIC OBSTRUCTIVE PULMON DISEASE W ACU 01/28/2017 RPI CARPENTER MD Ot J45.909 UNSPECIFIED ASTHMA, UNCOMPLICATED [...] 01/29/2017 SCOT AGARWAL DOA K Ot Z79.82 MCC (CURRENT) USE OF ASPIRIN 01/29/2017 SCOT AGARWAL DOA K Ot Z79.899 OTHER MCC (CURRENT) DRUG THERAPY 01/30/2017 SCOT AGARWAL DOA [...] 01/30/2017 SCOT AGARWAL DOA Sandra Ot Z79.82 MCC (CURRENT) USE OF ASPIRIN 01/30/2017 JOE AGARWAL DO Ot Z79.899 OTHER MCC (CURRENT) DRUG THERAPY 02/17/2017 RIP CARPENTER MD, [...] F32.9 MAJOR DEPRESSIVE DISORDER, SINGLE EPISOD 02/17/2017 RPI CARPENTER MD, Ot H51.8 OTHER SPECIFIED DISORDERS [...] culture - 07/31/16 20:55 Bacterial urine culture [id number] NRG COLONY COUNT >100,000/ML NRG FTX;REPORTABLE SENSITIVITIES REPORTED AT 0850, 08-02-16 [facility] Bacterial susceptibility panel - 07/31/16 [...] susceptibility test by minimum inhibitory concentration S [facility] Bacterial susceptibility panel - 07/31/16 [...] NRG Blood erythrocyte morphology finding identification NORMAL [facility] Comprehensive metabolic panel - 08/16/16 [...] culture - 01/25/17 21:34 Bacterial urine culture [id number] NRG COLONY COUNT >100,000/ML NRG FTX;REPORTABLE SENSITIVITY [...] OF GROWTH Isolated NR Bacterial blood culture [id number] NR Complete urinalysis with reflex to culture [...] culture - 02/15/17 17:26 Bacterial urine culture [id number] NRG COLONY COUNT 10,000/ML - 100,000/ML NRG [...] Status Pt. Type Provider Facility Loc./Unit Complaint [id number] 02/15/2017 18:55:00 2016 13:55:00 DIS Outpatient RIP CARPENTER MD [facility] 4TH SEPSIS,UTI,BRONCHITIS, H/O CVA [id number] 01/29/2017 08:36:00 2016 15:29:00 DIS Emergency STEFANO DO, JOE K [facility] ER FEVER [id number] 01/25/2017 22:00:00 2016 15:05:00 DIS Inpatient RIP CARPENTER MD [facility] 4TH SEPSIS,CHEST PAIN,BRONCHITIS,UTI [id number] 08/16/2016 12:40:00 2015 13:25:00 DIS Inpatient MAE HUERTAS MD [facility] IRF DEBILITY, HX CVA WITH RIGHT HEMIPARESIS [id number] 08/14/2016 17:34:00 2015 12:35:00 DIS Inpatient NANCY FULLER DO [facility] 4TH SEPSIS,UTI RECENTLY [id number] 07/31/2016 19:40:00 2015 22:32:00 DIS Emergency DOMENIC MCGILL, JOSE M Cisse [facility] ER FALL [id number] 07/08/2015 12:29:00 2014 15:45:00 DIS Emergency CHRIS MCGILL, GEORGI S [facility] ER CHEST PAIN [id number] 06/13/2015 09:51:00 2014 16:29:00 DIS Emergency DOMENIC MCGILL, JOSE M Cisse [facility] ER MULTIPLE COMPLAINTS [id number] 06/08/2015 14:17:00 2014 23:59:59 CLS Outpatient STACIE BHATTI APRN [facility] RAD BACK PAIN,CRACKED RIBS, 599.0 [id number] 04/27/2015 14:01:00 2014 16:36:00 DIS Emergency JOSE SAINZ APRN [facility] ER DYSPNEA [id number] 04/22/2015 11:17:00 2014 13:20:00 DIS Emergency SHANIA ROSALES DO [facility] ER FALL [id number] 12/06/2014 12:21:00 2014 23:59:59 CLS Emergency KELVIN LAINEZ [facility] ER SOA [id number] 07/25/2014 14:06:00 2013 23:59:59 CLS Outpatient STACIE BHATTI APRN [facility] RAD ROUTINE [id number] 03/23/2014 16:35:00 2013 13:45:00 DIS Inpatient ALEKSANDAR MCGILL, MAE Hernandez [facility] IRF FALL AT HOME/BACK PAIN [id number] 03/20/2014 13:55:00 2013 16:35:00 DIS Inpatient RIP CARPENTER MD [facility] 4TH FALL AT HOME/BACK PAIN [id number] 03/16/2014 16:30:00 2013 13:25:00 DIS Inpatient RIP CARPENTER MD [facility] 4TH PYELONEPHRITIS;UNRESPONSIVE TO OUTPATIENT THERAPY [id number] 03/08/2014 09:29:00 2013 14:56:00 DIS Emergency JOE AGARWAL DO [facility] ER PAIN MULTIPLE AREAS [id number] 03/29/2013 13:58:00 2012 23:59:59 CLS Outpatient [id number] 03/12/2013 15:26:00 2012 15:37:00 DIS Inpatient RIP CARPENTER MD [facility] 4TH UTI
== END 2017-01-28 15:05 | DRG 872 ==
LOC: EDUNIT# 19:58 → ER 20:00 → ICU 22:00 → 4TH 01-27 13:39
PROVIDERS: ADMIT Internal Medicine; ATTEND Internal Medicine
PROC: 02HV33Z Insertion of Infusion Device into Superior Vena Cava, Percutaneous Approach (ICD-10-PCS; principal; 2017-01-27)
DX: A41.9 Sepsis, unspecified organism (principal); R65.20 Severe sepsis without septic shock; N39.0 Urinary tract infection, site not specified; J44.0 Chronic obstructive pulmonary disease with (acute) lower respiratory infection; J20.8 Acute bronchitis due to other specified organisms; J45.909 Unspecified asthma, uncomplicated; J92.9 Pleural plaque without asbestos; I69.351 Hemiplegia and hemiparesis following cerebral infarction affecting right dominant side; I69.311 Memory deficit following cerebral infarction; I69.320 Aphasia following cerebral infarction; I69.391 Dysphagia following cerebral infarction; I69.392 Facial weakness following cerebral infarction; I69.398 Other sequelae of cerebral infarction; M24.541 Contracture, right hand; I25.2 Old myocardial infarction; I10 Essential (primary) hypertension; E11.51 Type 2 diabetes mellitus with diabetic peripheral angiopathy without gangrene; R32 Unspecified urinary incontinence; B96.20 Unspecified Escherichia coli [E. coli] as the cause of diseases classified elsewhere; Z87.891 Personal history of nicotine dependence
CPT/HCPCS: 36415; 36569; 71010; 76937; 80048; 80053; 80061; 81000; 82550; 82553; 83605; 83735; 83874; 83880; 84100; 84443; 84484; 85007; 85025; 85027; 85610; 85730; 87040; 87077; 87081; 87088; 87186; 87804; 93005; 93041; 94640; 94760; 96361; 96365

== ENCOUNTER 2017-01-29 08:34 | Emergency (ER) | payer MEDICARE, MEDICAID ==
[~2017-01-29] VITALS: Ht 162.6 cm; Wt 73.7 kg
[~2017-01-29 08:34] MED LIST changes: +CEFD300C3 PO; +CRAN1TAB6 PO; +FLUT16SP22 NS; +FLUT1AER INH; +ONDA4TAB10 PO; -PIPERACILLIN/TAZOBACTAM 4.5 GM/NS100 ML IVPB IV ONE; -PIPERACILLIN/TAZOBACTAM 4.5 GM/NS100 ML IVPB IV SCH; +PROM12.565 RC; +PROM25SU44 RC
--- NOTE | 2017-01-29 08:47 | ED General ---
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 NO CALL FROM [facility] AND NO PAPERWORK SENT FROM [facility]. EMS CAN GIVE VERY MINIMAL INFORMATION) History of Present Illness Time Seen by Provider: 08:32 Initial Comments PT ARRIVES VIA EMS FROM [facility] PT WAS ADMITTED HERE 01/25 AND DISMISSED YESTERDAY FOR SEPSIS, WITH UTI AND BRONCHITIS, ALSO C/O CHEST PAIN SENT HOME WITH RX FOR CEFDINIR PER EMS, [facility] STAFF STATES SHE "RAN FEVER ALL NIGHT" BUT DO NOT KNOW HOW HIGH HER TEMP HAS BEEN EMS REPORT THAT TEMP WAS 99.1 FOR THEM AND PT HAD SWEAT JACKET ON OVER HER CLOTHING AND HAD 4 BLANKETS ON EMS STATES [facility] STAFF TOLD THEM SHE WAS "MAXED OUT ON TYLENOL" BUT DO NOT KNOW EXACTLY HOW MUCH TYLENOL THE PT HAS HAD OR WHEN LAST DOSE WAS PT HAS REDNESS TO ENTIRE BODY AND HAS SEVERE ITCHING OF ENTIRE BODY--[facility] STAFF REPORTED THAT PT RETURNED TO THEM FROM THE HOSPITAL WITH THIS NO OTHER INFORMATION IS OBTAINABLE ON ARRIVAL PCP: DR. CARPENTER Allergies and Home Medications Allergies Coded Allergies: levofloxacin (Verified Allergy, Mild, 08/14/16) cephalexin (Verified Allergy, Unknown, 08/14/16) menthol (Verified Allergy, Unknown, RASH, 01/26/17) zinc oxide (Unverified Adverse Reaction, Intermediate, 03/22/14) rash-from calmoseptine Home Medications Acetaminophen 500 Mg Tablet, 1,000 MG PO TID, (Reported) TAKES 2 (500MG) TABLETS Albuterol Sulfate 2.5 Mg/3 Ml Vial.neb, 2.5 MG IH Q6H PRN for DYSPENIA/ CONGESTION, (Reported) Ascorbate Calcium 500 Mg Tablet, 500 MG PO DAILY, (Reported) Aspirin 325 Mg Tab, 325 MG PO DAILY, (Reported) Baclofen 10 Mg Tablet, 10 MG PO TID, (Reported) Bismuth Subsalicylate 262 Mg/15 Ml Oral.susp, 15 ML PO Q4H PRN for STOMACH UPSET , (Reported) Cefdinir 300 Mg Capsule, 300 MG PO twice a day, #14 Prescribed by: LASHONDA RODRIGUEZ on 01/28/17 1146 [place]berry Con&Fr/B.coag/C/Calc 1 Each Tablet, 1 TAB PO BID, (Reported) Fluticasone Propionate 16 Gm [place].susp, 1 SPRAY NS PRN PRN for ALLERGIES, ( Reported) Fluticasone/Vilanterol 1 Each Blst.w.dev, 1 PUFF INH DAILY, (Reported) Gabapentin 100 Mg Capsule, 100 MG PO HS, (Reported) Loperamide HCl 2 Mg Capsule, 2 MG PO PRN PRN for DIARRHEA, (Reported) Loratadine 10 Mg Tablet, 10 MG PO DAILY, (Reported) Metoprolol Tartrate 25 Mg Tablet, 25 MG PO BID, (Reported) HOLD FOR SBP<100 OR DBP<60 Multivitamin 1 Each Tablet, 1 TAB PO DAILY, (Reported) Ondansetron HCl 4 Mg Tablet, 4 MG PO Q8H PRN for NAUSEA-1ST LINE, (Reported) Tramadol Hcl 50 Mg Tablet, 50 MG PO 0800,1600, (Reported) Constitutional: see HPI, other (PT UNABLE TO GIVE ANY INFORMATION) Skin: see HPI, pruritus, rash Past Npqwptm-Kdjixy-Wgrijq Hx Patient Social History Former Smoker/When Quit: February 22, 2009 Recent Hopitalizations: Yes Immunizations Up To Date Tetanus Booster (TDap): More than 5yrs PED Vaccines UTD: Yes Date of Pneumonia Vaccine: March 13, 2013 Date of Influenza Vaccine: Jul 11, 2016 Seasonal Allergies Seasonal Allergies: Yes Surgeries HX Surgeries: Yes (abd adhesion removal surgery, LEFT CAROTID ENDARTERECTOMY) Surgeries: Abdominal, Vascular Surgery Respiratory Hx Respiratory Disorders: Yes Respiratory Disorders: Asthma, Chronic Bronchitis, COPD Cardiovascular Hx Cardiac Disorders: Yes (left carotid endarterectomy) Cardiac Disorders: Heart Attack, Hypertension, Peripheral Vascular Neurological Hx Neurological Disorders: Yes Neurological Disorders: Dementia, Stroke Reproductive System Hx Reproductive Disorders: No Female Reproductive Disorders: Denies Genitourinary Hx Genitourinary Disorders: Yes (INCONTINENT) Genitourinary Disorders: Bladder Infection, UTI-Chronic Gastrointestinal Hx Gastrointestinal Disorders: Yes (DYSPHAGIA) Gastrointestinal Disorders: Chronic Diarrhea Musculoskeletal Hx Musculoskeletal Disorders: Yes (FALLS, LEFT SIDE WEAKNESS FROM CVA WITH RIGHT ARM/HAND CONTRACTURES) Musculoskeletal Disorders: Arthritis, Chronic Back Pain, Fractures, Contracture Endocrine Hx Endocrine Disorders: Yes Endocrine Disorders: Diabetes, Non-Insulin dep HEENT HX ENT Disorders: Yes (DYSPHAGIA) Loss of Vision: Denies Hearing Impairment: Hard of Hearing Cancer Hx Cancer: No Psychosocial Hx Psychiatric Problems: Yes Behavioral Health Disorders: Depression Integumentary HX Skin/Integumentary Disorder: Yes (SKIN BREAKDOWN TO ROSIO AREA/GROIN/INNER THIGHS/BUTTOCKS) Skin/Integumentary Disorders: Recent Skin Changes Blood Transfusions Hx Blood Disorders: No Family Medical History Family Medial History: Cancer 19 MOTHER Family history: Diabetes mellitus 19 MOTHER Myocardial infarction 19 FATHER No Family History of: Abdominal aortic aneurysm Alcoholism Aphasia Cancer of colon Cataract Chest pain Congenital heart disease Congestive heart failure Cystic fibrosis Dementia Dysphagia Family history: Allergy Family history: Alzheimer's disease Family history: Arthritis Family history: Asthma Family history: Breast disease Family history: Cardiovascular disease Family history: Coronary thrombosis Family history: Gastrointestinal disease Family history: Glaucoma Family history: Hypertension Family history: Osteoporosis Family history: Thyroid disorder Headache Hearing loss Heart disease Hereditary disease History of - anemia History of - disorder History of - respiratory disease History of drug abuse Human immunodeficiency virus (HIV) seropositivity Hypercholesterolemia Infertile Kidney disease Malignant neoplasm of lung Parkinson's disease Prostate cancer Psychotic disorder Seizure disorder Stroke Tuberculosis Visual impairment Physical Exam Vital Signs Vital Sign - Last 12Hours 01/29/17 01/29/17 08:34 10:48 Temp 100.3 Pulse 115 Resp 18 B/P (MAP) 120/68 Pulse Ox 93 O2 Delivery Nasal Cannula O2 Flow Rate 0 Capillary Refill : General Appearance: No Apparent Distress, WD/WN, Other (YELLING "OW" ANYTIME SHE IS MOVED, OR IV STICKS, OR ESSENTIALLY ANY TIME SHE IS TOUCHED ANYWHERE. ) HEENT: PERRL/EOMI Neck: Normal Inspection Respiratory: Normal Breath Sounds, No Accessory Muscle Use, No Respiratory Distress Cardiovascular: Regular Rate, Rhythm Gastrointestinal: Non Tender, Soft Back: No CVA Tenderness Neurologic/Psychiatric: Alert, Other (EXPRESSIVE APHASIA, RIGHT SIDE WEAKNESS WITH RIGHT ARM/HAND CONTRACTURE AND RIGHT FACIAL DROOP. ) Skin: Other (ENTIRE BODY RIGHT RED, PT WITH FREQUENT ITCHING. PT HAS EXCORIATIONS TO RIGHT FOREARM FROM PT SCRATCHING. SLIGHT PERIORBITAL EDEMA) Focused Exam Lactic Acid Level Progress/Results/Core Measures Results/Orders Lab Results Laboratory Tests Test 01/29/17 09:26 01/29/17 09:59 01/29/17 12:31 Range/Units White Blood Count 6.2 4.3-11.0 10^3/uL Red Blood Count 4.67 4.35-5.85 10^6/uL Hemoglobin 13.1 11.5-16.0 G/DL Hematocrit 41 35-52 % Mean Corpuscular Volume 88 80-99 FL Mean Corpuscular Hemoglobin 28 25-34 PG Mean Corpuscular Hemoglobin Concent 32 32-36 G/DL Red Cell Distribution Width 15.8 H 10.0-14.5 % Platelet Count 165 130-400 10^3/uL Mean Platelet Volume 12.2 H 7.4-10.4 FL Neutrophils (%) (Auto) 76 H 42-75 % Lymphocytes (%) (Auto) 10 L 12-44 % Monocytes (%) (Auto) 5 0-12 % Eosinophils (%) (Auto) 8 0-10 % Basophils (%) (Auto) 0 0-10 % Neutrophils # (Auto) 4.7 1.8-7.8 X 10^3 Lymphocytes # (Auto) 0.6 L 1.0-4.0 X 10^3 Monocytes # (Auto) 0.3 0.0-1.0 X 10^3 Eosinophils # (Auto) 0.5 H 0.0-0.3 10^3/uL Basophils # (Auto) 0.0 0.0-0.1 10^3/uL Sodium Level 133 L 135-145 MMOL/L Potassium Level 4.3 3.6-5.0 MMOL/L Chloride Level 101 98-107 MMOL/L Carbon Dioxide Level 22 21-32 MMOL/L Anion Gap 10 5-14 MMOL/L Blood Urea Nitrogen 17 7-18 MG/DL Creatinine 1.21 0.60-1.30 MG/DL Estimat Glomerular Filtration Rate 44 BUN/Creatinine Ratio 14 Glucose Level 118 H 70-105 MG/DL Lactic Acid Level 2.13 *H 1.68 0.50-2.00 MMOL/L Calcium Level 8.4 L 8.5-10.1 MG/DL Total Bilirubin 0.5 0.1-1.0 MG/DL Aspartate Amino Transf (AST/SGOT) 50 H 5-34 U/L Alanine Aminotransferase (ALT/SGPT) 21 0-55 U/L Alkaline Phosphatase 75 40-136 U/L Total Protein 6.9 6.4-8.2 G/DL Albumin 2.9 L 3.2-4.5 G/DL Micro Results Microbiology 01/29/17 Blood Culture - Preliminary, Resulted No growth 01/29/17 Blood Culture - Preliminary, Resulted No growth My Orders Orders - JOE AGARWAL DO Saline Lock/Iv-Start (01/29/17 08:38) O2 (01/29/17 08:38) Monitor-Rhythm Ecg Trace Only (01/29/17 08:38) Cbc With Automated Diff (01/29/17 08:38) Comprehensive Metabolic Panel (01/29/17 08:38) Lactic Acid Analyzer (01/29/17 08:38) Blood Culture (01/29/17 08:38) Chest 1 View, Ap/Pa Only (01/29/17 08:38) Diphenhydramine Injection (Benadryl Inje (01/29/17 09:45) Ibuprofen Tablet (Motrin Tablet) (01/29/17 09:45) Ct Head Wo (01/29/17 11:40) Albuterol/Ipra Inhalation Soln (Duoneb I (01/29/17 11:45) Dexamethasone Injection (Decadron Inject (01/29/17 11:45) Rt Request For Service (01/29/17 11:40) Svn Sm Volume Nebulizer Rt-Rfs (01/29/17 11:40) Svn Sm Volume Nebulizer Rt-Rfs (01/29/17 11:40) Methylprednisolone Sod Succ (Solu-Medrol (01/29/17 11:45) Famotidine Injection (Pepcid Injection) (01/29/17 11:45) Albuterol/Ipra Inhalation Soln (Duoneb I (01/29/17 13:30) Dexamethasone Injection (Decadron Inject (01/29/17 13:30) Svn Sm Volume Nebulizer Rt-Rfs (01/29/17 13:21) Piperacillin Sodium/Tazobactam (Zosyn Vi (01/29/17 13:45) Bladder Scan (01/29/17 14:00) Iv Infusion <= First Hr Ed (01/29/17 ) Medications Given in ED Vital Signs/I&O Progress Note : Progress Note RN CALLED [facility] AND THEY REPORT THAT PT HAD THIS DIFFUSE RASH AND REDNESS AND INTENSE ITCHING OF BODY WHEN PT RETURNED YESTERDAY AFTER BEING DISMISSED FROM THE HOSPTIAL. FAMILY ARRIVES LATER--DAUGHTER AND SON, WHO ARE VERY ANXIOUS THEY REPORT THAT PT HAD FEVER OF 101 AND 102 LAST NIGHT AND THIS AM THEY STATE PT IS CONFUSED --"IN AND OUT OF IT" PT HAS RECEIVED SEVERAL DOSES OF BENADRYL AT [facility] SINCE SHE HAS BEEN BACK THERE MULTIPLE DISCUSSIONS WITH FAMILY THROUGHOUT ER STAY--THEY WANT PT ADMITTED TO HOSPITAL AGAIN. EXPLAINED THAT SHE DOES NOT MEET ADMISSION CRITERIA EVENTUALLY, FAMILY AGREEABLE TO DOING IV ANTIBIOTICS AT [facility] AND FOLLOW UP WITH DR. CARPENTER IN OFFICE. PT DID HAVE SOME WHEEZING DURING ER STAY AND WAS GIVEN NEB TREATMENT WITH RESOLUTION OF WHEEZING PT IS MUCH BETTER AT DISMISSAL--GIVEN BENADRYL, PEPCID AND SOLU-MEDROL--ITCHING HAS RESOLVED, SKIN IS LESS RED PT STATES SHE FEELS BETTER Diagnostic Imaging Comments CXR--NO ACUTE PROCESS, NO CHANGES FROM PREVIOUS --CHRONIC INTERSTITIAL LUNG DISEASE, NO INFILTRATES--PER RADIOLOGIST REPORT @ 1123 CT HEAD--NO ACUTE PROCESS, CHRONIC CHANGES, PER RADIOLOGIST REPORT @ 1314 Reviewed: Reviewed by Me Departure Communication Progress Notes 1120--ATTEMPTING TO CONTACT DR. CARPENTER AT OFFICE--HE IS IN A PROCEDURE AND WILL CALL BACK 1141--SPOKE WITH DR. FULLER AND DR. RDORIGUEZ --HOSPITALISTS--PT DOES NOT MEET CRITERIA FOR ADMIT 1203--SPOKE WITH DR. CARPENTER--HE AGREES THAT PT DOES NOT MEET CRITERIA FOR ADMIT , HE WILL SEE PT IN CLINIC TOMORROW MORNING. WILL STOP CEFDINIR, ADD MACROBID AND PREDNISONE. 1324--ATTEMPTING TO CONTACT DR. CARPENTER AGAIN. OFFICE IS NOW CLOSED, MESSAGE LEFT ON CELL PHONE 1327-SPOKE WITH DR. FULLER AGAIN AND UPDATE GIVEN. SHE WOULD LIKE JOE PEDROZA, PALLIATIVE CARE, TO SEE PT AND FAMILY 1331--SPOKE WITH STACIE BHATTI, [facility] WITH DR. CARPENTER. UPDATE GIVEN. HE REPORTS THAT IV ANTIBIOTICS CAN BE GIVEN AT [facility]. 1337--JOE HERE TO SEE PT. Impression Impression: Primary Impression: Allergic reaction caused by a drug Additional Impressions: SUSPECTED ALLERGIC REACTION TO CEFDINIR UTI (urinary tract infection) Bronchitis Disposition: 03 XFER SNF Condition: Improved Departure-Patient Inst. Referrals: RIP CARPENTER MD (PCP/Family) Primary Care Physician Patient Instructions: Acute Bronchitis, Adult (DC), MEDICATION REACTION, Urinary Tract Infection, Adult (DC) Add. Discharge Instructions: STOP CEFDINIR SEE DISCHARGE ORDER SHEET FOR FURTHER ORDERS JOE AGARWAL DO Jan 29, 2017 08:47
--- NOTE | 2017-01-29 09:28 | Diagnostic Imaging Report ---
INDICATION: Fever and cough EXAMINATION: Portable chest at 9:02 AM Heart size and pulmonary vascularity are normal. There is mild diffuse interstitial fibrosis. There are no consolidating alveolar infiltrates. There are no effusions or pneumothoraces. IMPRESSION: Interstitial lung disease. No change from 01/28/2017. Incidentally noted is advanced degenerative change in the right shoulder. Dictated by: Dictated on workstation # [id number]
[2017-01-29 09:38] LABS: BASOPHILS % (AUTO) 0 % (0-10); EOSINOPHILS # (AUTO) 0.5 10^3/uL (0.0-0.3); EOSINOPHILS % (AUTO) 8 % (0-10); LYMPHOCYTES # (AUTO) 0.6 X 10^3 (1.0-4.0); LYMPHOCYTES % (AUTO) 10 % (12-44); MEAN CORPUSCULAR HEMOGLOBIN 28 PG (25-34); MEAN CORPUSCULAR HGB CONC 32 G/DL (32-36); MEAN CORPUSCULAR VOLUME 88 FL (80-99); MEAN PLATELET VOLUME 12.2 FL (7.4-10.4); MONOCYTES # (AUTO) 0.3 X 10^3 (0.0-1.0); MONOCYTES % (AUTO) 5 % (0-12); NEUTROPHILS # (AUTO) 4.7 X 10^3 (1.8-7.8); NEUTROPHILS % (AUTO) 76 % (42-75); PLATELET COUNT 165 10^3/uL (130-400); RED BLOOD COUNT 4.67 10^6/uL (4.35-5.85); RED CELL DISTRIBUTION WIDTH 15.8 % (10.0-14.5); WHITE BLOOD COUNT 6.2 10^3/uL (4.3-11.0)
[2017-01-29] MEDS ORDERED: IBUPROFEN 800 MG (MOTRIN) TAB PO ONE (09:45)
[2017-01-29] MEDS ORDERED: diphenhydrAMINE 50 MG/ML INJ (BENADRYL) IVP ONE (09:45)
[2017-01-29 10:26] LABS: ALBUMIN 2.9 G/DL (3.2-4.5); BILIRUBIN,TOTAL 0.5 MG/DL (0.1-1.0); CALCIUM 8.4 MG/DL (8.5-10.1); CREATININE SERUM 1.21 MG/DL (0.60-1.30); POTASSIUM 4.3 MMOL/L (3.6-5.0); TOTAL PROTEIN 6.9 G/DL (6.4-8.2)
[2017-01-29] MEDS ORDERED: RT-ALBUTEROL/IPRATROPIUM 3 ML (DUONEB) VIAL INH ONE ×2 (11:45→13:30)
[2017-01-29] MEDS ORDERED: FAMOTIDINE 20MG/2ML IV (PEPCID) IVP ONE (11:45)
[2017-01-29] MEDS ORDERED: DEXAMETHASONE 4 MG/ML SDV (DECADRON) IH ONE ×2 (11:45→13:30)
[2017-01-29] MEDS ORDERED: methylPREDNISolone 125 MG (Solu-MEDROL) VIAL IVP ONE (11:45)
--- NOTE | 2017-01-29 12:55 | Diagnostic Imaging Report ---
PROCEDURE: CT head without contrast. TECHNIQUE: Multiple contiguous axial images were obtained through the brain without the use of intravenous contrast. INDICATION: Altered mental status. Fever. COMPARISON: 04/27/2015. FINDINGS: There is encephalomalacia related to an underlying chronic abnormality seen in the white matter worse on the left side. This could relate to previous infarct although the relative sparing of the enriquez matter is unusual for typical infarction and may relate to other white matter disease. When compared to the previous study however, no change is appreciated. There is a mild enlargement of the lateral ventricles which is probably an ex vacuo dilatation related to the encephalomalacia. There is no extra-axial fluid collection identified. No intracranial hemorrhage. There is partial opacification of the right mastoid air cells seen which appears to be present on the previous study. There is also a small air-fluid level in the sphenoidal sinuses and minimal mucosal thickening in the anterior ethmoidal air cells. IMPRESSION: 1. No intracranial hemorrhage. Chronic encephalomalacia involving the white matter, worse on the left side without change from 04/27/2015. 2. Mild sinus disease and partial opacification of the right mastoid air cells. Dictated by: Dictated on workstation # [id number]
[2017-01-29] MEDS ORDERED: PIPERACILLIN SODIUM/TAZOBACTAM 4.5 GM in NS (IVPB) 100 ML IV ONE (13:45)
[2017-01-29 15:25] VITALS: BP 116/63
== END 2017-01-29 15:29 ==
LOC: EDUNIT# 08:34 → ER 08:36
DX: R21 Rash and other nonspecific skin eruption (principal); T36.95XA Adverse effect of unspecified systemic antibiotic, initial encounter; J40 Bronchitis, not specified as acute or chronic; N39.0 Urinary tract infection, site not specified; I69.920 Aphasia following unspecified cerebrovascular disease; I10 Essential (primary) hypertension; E11.9 Type 2 diabetes mellitus without complications; J44.9 Chronic obstructive pulmonary disease, unspecified; Z79.82 Long term (current) use of aspirin; Z79.899 Other long term (current) drug therapy
CPT/HCPCS: 36415; 70450; 71010; 80053; 83605; 85025; 87040; 93041; 94640; 96365; 96375

== ENCOUNTER 2017-02-15 17:04 | Inpatient (IN) | payer MEDICARE, MEDICAID ==
[~2017-02-15] VITALS: Ht 167.6 cm; Wt 73.0 kg
[2017-02-15 17:24] LABS: BASOPHILS % (AUTO) 0 % (0-10); EOSINOPHILS # (AUTO) 0.6 10^3/uL (0.0-0.3); EOSINOPHILS % (AUTO) 4 % (0-10); LYMPHOCYTES # (AUTO) 3.2 X 10^3 (1.0-4.0); LYMPHOCYTES % (AUTO) 22 % (12-44); MEAN CORPUSCULAR HEMOGLOBIN 29 PG (25-34); MEAN CORPUSCULAR HGB CONC 32 G/DL (32-36); MEAN CORPUSCULAR VOLUME 90 FL (80-99); MEAN PLATELET VOLUME 12.1 FL (7.4-10.4); MONOCYTES # (AUTO) 1.6 X 10^3 (0.0-1.0); MONOCYTES % (AUTO) 11 % (0-12); NEUTROPHILS # (AUTO) 9.2 X 10^3 (1.8-7.8); NEUTROPHILS % (AUTO) 63 % (42-75); PLATELET COUNT 277 10^3/uL (130-400); RED CELL DISTRIBUTION WIDTH 16.5 % (10.0-14.5); WHITE BLOOD COUNT 14.6 10^3/uL (4.3-11.0)
[2017-02-15] MEDS ORDERED: RT-ALBUTEROL/IPRATROPIUM 3 ML (DUONEB) VIAL ONE (17:28)
[2017-02-15 17:36] LABS: BILIRUBIN,URINE NEGATIVE (NEGATIVE); KETONES,URINE NEGATIVE (NEGATIVE); LEUKOCYTE ESTERASE ,URINE 3+ (NEGATIVE); NITRITE,URINE NEGATIVE (NEGATIVE); PH,URINE 6.5 (5-9); PROTEIN,URINE 1+ (NEGATIVE); UROBILINOGEN,URINE NORMAL (NORMAL)
[2017-02-15 17:44] LABS: ALANINE AMINOTRANSFERASE 21 U/L (0-55); ALBUMIN 3.5 G/DL (3.2-4.5); ANION GAP 14 MMOL/L (5-14); ASPARTATE AMINO TRANSFERASE 27 U/L (5-34); BILIRUBIN,TOTAL 0.8 MG/DL (0.1-1.0); BLOOD UREA NITROGEN 8 MG/DL (7-18); BUN/CREATININE RATIO 10; CALCIUM 9.3 MG/DL (8.5-10.1); CARBON DIOXIDE 22 MMOL/L (21-32); CHLORIDE 106 MMOL/L (98-107); CREATININE SERUM 0.81 MG/DL (0.60-1.30); GFR ESTIMATED > 60; GLUCOSE 133 MG/DL (70-105); POTASSIUM 4.2 MMOL/L (3.6-5.0); SODIUM 142 MMOL/L (135-145); TOTAL PROTEIN 7.4 G/DL (6.4-8.2); hs C REACTIVE PROTEIN 2.73 MG/DL (0.00-0.50)
[2017-02-15 17:47] LABS: WBC,URINE >100 /HPF
--- NOTE | 2017-02-15 17:54 | Diagnostic Imaging Report ---
INDICATION: Stroke. Mental status change. TECHNIQUE: Single view chest 5:24 p.m. CORRELATION STUDY: 01/29/2017. FINDINGS: Patient is rotated. Heart size enlarged. Vasculature is increased. The lungs are clear with no consolidating infiltrate. There is no significant effusion or pneumothorax. IMPRESSION: 1. Cardiac enlargement. Vasculature does appear to be slightly more prominent from prior study. Could be reflective of early fluid overload or failure. Prominent interstitial markings may be chronic with superimposed edema not excluded. Dictated by: Dictated on workstation # [id number]
[2017-02-15 17:55] LABS: BAND NEUTROPHILS 0 %; LYMPHOCYTES % (MANUAL) 19 %; NEUTROPHILS % (MANUAL) 68 %
[2017-02-15 17:56] LABS: ANISOCYTOSIS SLIGHT; BASOPHILS % (MANUAL) 1 %; EOSINOPHILS % (MANUAL) 2 %; SPHEROCYTES SLIGHT
[2017-02-15] MEDS ORDERED: fentaNYL INJECTION 100 MCG/2 ML AMP IVP STA (17:59)
[2017-02-15] MEDS ORDERED: fentaNYL INJECTION 100 MCG/2 ML AMP ONE (18:00)
[2017-02-15] MEDS ORDERED: MEROPENEM 1,000 MG in NS (IVPB) 100 ML IV ONE (18:00)
--- NOTE | 2017-02-15 18:04 | Diagnostic Imaging Report ---
PROCEDURE: CT head without contrast. TECHNIQUE: Multiple contiguous axial images were obtained through the brain without the use of intravenous contrast. INDICATION: Mental status change since earlier in the day. History of stroke. CORRELATION STUDY: 01/29/2017. FINDINGS: Again noted are generalized atrophic changes with prominence of ventricles and sulci. Rather pronounced diffuse decreased attenuation throughout the white matter. This is most noticeable in the left frontal lobe and extends into the basal ganglia and portions of the temporal lobe. Again, extensive diminished attenuation throughout the white matter is rather pronounced.. Definitive new area of decreased attenuation does not appear to be present. No intracranial hemorrhage. No midline shift or mass effect. Bony calvarium generally stable with slightly demineralized mottled appearance. Paranasal sinuses are clear. Opacification of the mastoid air cells, right greater than left. IMPRESSION: 1. Overall generally stable CT imaging of the head. Rather pronounced chronic encephalomalacia involving the left frontal lobe as well as extensive low attenuation of white matter is again demonstrated. Some areas of edema would be difficult to exclude given the rather pronounced chronic changes. Dictated by: Dictated on workstation # [id number]
[2017-02-15] MEDS ORDERED: NS IV 1000 ML 1,000 ML ONE (18:11)
[2017-02-15] MEDS ORDERED: NS IV 1000 ML 2,500 ML IV PRN (18:15)
[2017-02-15] MEDS ORDERED: MEROPENEM 500 MG VIAL (MERREM) IV ONE (18:30)
[2017-02-15] MEDS ORDERED: NS (IVPB) 100 ML ONE (18:31)
[2017-02-15] MEDS ORDERED: LORazepam INJ 2 MG/ML (ATIVAN) VIAL ONE (18:31)
[2017-02-15] MEDS ORDERED: morphine INJ 10 MG/ML 1ML (SYR OR VIAL) ONE (18:31)
[2017-02-15] MEDS ORDERED: morphine INJ 10 MG/ML 1ML (SYR OR VIAL) IVP STA (18:32)
[2017-02-15] MEDS ORDERED: LORazepam INJ 2 MG/ML (ATIVAN) VIAL IVP ONE (18:45)
[2017-02-15 20:20] VITALS: BP 128/87
[2017-02-15 21:00] VITALS: BP 125/78
[2017-02-15] MEDS ORDERED: RT-ALBUTEROL SULF 2.5 MG/3 ML PRE-MIX VIAL IH PRN (21:30)
[2017-02-15] MEDS ORDERED: ONDANSETRON 4 MG/2 ML (SDV) Z0FRAN IV PRN (21:30)
[2017-02-15 22:00] VITALS: BP 120/83
[2017-02-15 23:00] VITALS: BP 122/75
[2017-02-15] MEDS: morphine INJ 4 MG/ML 1 ML (VIAL/SYRINGE) IV PRN (23:57)
[2017-02-15] MEDS: NS IV 1000 ML 1,000 ML IV SCH (23:58)
[2017-02-15] MEDS: NYSTATIN CREAM (MYCOSTATIN) 30 GM TUBE TP SCH (23:58)
[2017-02-16] VITALS (14 sets, daily range): BP systolic 91–144; BP diastolic 63–97
[2017-02-16] MEDS: MEROPENEM 500 MG/NS 100 ML IVPB IV SCH ×10 (00:04→23:40)
--- NOTE | 2017-02-16 01:00 | ED General ---
General Chief Complaint: Altered Mental Status Stated Complaint: SEPSIS,UTI,BRONCHITIS, H/O CVA Nursing Triage Note: Per retirement, patient was in wheelchair, alert and cooperative. Approx 1200, became very restless and moaning. Was sent by ems . Patient crying out, non verbal, restless. Does not follow commands. Eyes deviated to rt Nursing Sepsis Screen: No Definite Risk Source of Information: Patient, EMS, Other (MA RN report) Exam Limitations: Other (chronic expressive aphasia) History of Present Illness Time Seen by Provider: 17:15 Initial Comments 71 yo female patient presents to the ED with MA staff reporting patient is restless and crying out more than usual. Staff had reported to EMS that patient is normally cooperative and alert. Patient was dsch from [facility] on after being treated for sepsis, UTI and bronchitis. PICC line was removed 2- 3 days ago. Per records patient has had a previous CVA with residual expressive aphasia, rt sided hemiparesis, and eyes deviating to the rt. Patient is noted to be crying out ('ow") with any movement or any stimulation. Timing/Duration: Constant, Other (1200 today) Modifying Factors: worse with Other (worse with movement) Allergies and Home Medications Allergies Coded Allergies: levofloxacin (Verified Allergy, Mild, 08/14/16) cephalexin (Verified Allergy, Unknown, 08/14/16) menthol (Verified Allergy, Unknown, RASH, 01/26/17) zinc oxide (Unverified Adverse Reaction, Intermediate, 03/22/14) rash-from calmoseptine Home Medications Acetaminophen 500 Mg Tablet, 1,000 MG PO TID, (Reported) TAKES 2 (500MG) TABLETS Albuterol Sulfate 2.5 Mg/3 Ml Vial.neb, 2.5 MG IH Q6H PRN for DYSPENIA/ CONGESTION, (Reported) Ascorbate Calcium 500 Mg Tablet, 500 MG PO DAILY, (Reported) Aspirin 325 Mg Tab, 325 MG PO DAILY, (Reported) Baclofen 10 Mg Tablet, 10 MG PO TID, (Reported) Bismuth Subsalicylate 262 Mg/15 Ml Oral.susp, 15 ML PO Q4H PRN for STOMACH UPSET , (Reported) Cefdinir 300 Mg Capsule, 300 MG PO twice a day, #14 Prescribed by: LASHONDA RODRIGUEZ on 01/28/17 1146 Cranberry Con&Fr/B.coag/C/Calc 1 Each Tablet, 1 TAB PO BID, (Reported) Fluticasone Propionate 16 Gm [place].susp, 1 SPRAY NS PRN PRN for ALLERGIES, ( Reported) Fluticasone/Vilanterol 1 Each Blst.w.dev, 1 PUFF INH DAILY, (Reported) Gabapentin 100 Mg Capsule, 100 MG PO HS, (Reported) Loperamide HCl 2 Mg Capsule, 2 MG PO PRN PRN for DIARRHEA, (Reported) Loratadine 10 Mg Tablet, 10 MG PO DAILY, (Reported) Metoprolol Tartrate 25 Mg Tablet, 25 MG PO BID, (Reported) HOLD FOR SBP<100 OR DBP<60 Multivitamin 1 Each Tablet, 1 TAB PO DAILY, (Reported) Ondansetron HCl 4 Mg Tablet, 4 MG PO Q8H PRN for NAUSEA-1ST LINE, (Reported) Tramadol Hcl 50 Mg Tablet, 50 MG PO 0800,1600, (Reported) Constitutional: see HPI, fever (99.6 at NH per staff) EENTM: no symptoms reported Respiratory: cough, No short of breath, No stridor, wheezing Cardiovascular: no symptoms reported Gastrointestinal: No diarrhea, No vomiting Psychiatric/Neurological: See HPI, Pre-Existing Deficit Other ROS per NH staff and EMS. Patient is unable to answer due to expressive aphasia. All Other Systems Reviewed Negative Unless Noted: Yes (Negative excepted noted.) Past Fgfpplx-Dvowub-Zalafj Hx Patient Social History Alcohol Use: Denies Use Recreational Drug Use: No Smoking Status: Never a Smoker Former Smoker/When Quit: February 22, 2009 Recent Foreign Travel: No Contact w/Someone Who Travel: No Recent Infectious Disease Expo: No Recent Hopitalizations: Yes Immunizations Up To Date Tetanus Booster (TDap): More than 5yrs PED Vaccines UTD: Yes Date of Pneumonia Vaccine: March 13, 2013 Date of Influenza Vaccine: Jul 11, 2016 Seasonal Allergies Seasonal Allergies: Yes (02/03 pneumonia/uti) Surgeries HX Surgeries: Yes (abd adhesion removal surgery, LEFT CAROTID ENDARTERECTOMY) Surgeries: Abdominal, Vascular Surgery Respiratory Hx Respiratory Disorders: Yes Respiratory Disorders: Asthma, Chronic Bronchitis, COPD Cardiovascular Hx Cardiac Disorders: Yes (left carotid endarterectomy) Cardiac Disorders: Heart Attack, Hypertension, Peripheral Vascular Neurological Hx Neurological Disorders: Yes Neurological Disorders: Dementia, Stroke (residual rt hemiparesis and expressive aphasia.) Reproductive System Hx Reproductive Disorders: No Female Reproductive Disorders: Denies Genitourinary Hx Genitourinary Disorders: Yes (INCONTINENT) Genitourinary Disorders: Bladder Infection, UTI-Chronic Gastrointestinal Hx Gastrointestinal Disorders: Yes (DYSPHAGIA) Gastrointestinal Disorders: Chronic Diarrhea Musculoskeletal Hx Musculoskeletal Disorders: Yes (FALLS, LEFT SIDE WEAKNESS FROM CVA WITH RIGHT ARM/HAND CONTRACTURES) Musculoskeletal Disorders: Arthritis, Chronic Back Pain, Fractures, Contracture Endocrine Hx Endocrine Disorders: Yes Endocrine Disorders: Diabetes, Non-Insulin dep HEENT HX ENT Disorders: Yes (DYSPHAGIA) Loss of Vision: Denies Hearing Impairment: Hard of Hearing Cancer Hx Cancer: No Psychosocial Hx Psychiatric Problems: Yes Behavioral Health Disorders: Depression Integumentary HX Skin/Integumentary Disorder: Yes (SKIN BREAKDOWN TO ROSIO AREA/GROIN/INNER THIGHS/BUTTOCKS) Skin/Integumentary Disorders: Recent Skin Changes Blood Transfusions Hx Blood Disorders: No Reviewed Nursing Assessment Reviewed/Agree w Nursing PMH: Yes Family Medical History Significant Family History: No Pertinent Family Hx Family Medial History: Cancer 19 MOTHER Family history: Diabetes mellitus 19 MOTHER Myocardial infarction 19 FATHER No Family History of: Abdominal aortic aneurysm Alcoholism Aphasia Cancer of colon Cataract Chest pain Congenital heart disease Congestive heart failure Cystic fibrosis Dementia Dysphagia Family history: Allergy Family history: Alzheimer's disease Family history: Arthritis Family history: Asthma Family history: Breast disease Family history: Cardiovascular disease Family history: Coronary thrombosis Family history: Gastrointestinal disease Family history: Glaucoma Family history: Hypertension Family history: Osteoporosis Family history: Thyroid disorder Headache Hearing loss Heart disease Hereditary disease History of - anemia History of - disorder History of - respiratory disease History of drug abuse Human immunodeficiency virus (HIV) seropositivity Hypercholesterolemia Infertile Kidney disease Malignant neoplasm of lung Parkinson's disease Prostate cancer Psychotic disorder Seizure disorder Stroke Tuberculosis Visual impairment Physical Exam Vital Signs Vital Sign - Last 12Hours 02/15/17 02/15/17 17:15 17:28 Temp 99.0 Pulse 127 Resp 20 B/P (MAP) 149/71 Pulse Ox 100 O2 Delivery Nonrebreather O2 Flow Rate 10.00 FiO2 100 Capillary Refill : Less Than 3 Seconds General Appearance: Anxious, Chronically ill, Other (expressive aphasia. crying out "ow" with any movement or external stimulation.) HEENT: Other (eyes and head deviate to the right) Neck: Normal Inspection, Supple Respiratory: Crackles, No Rales, No Respiratory Distress, No Stridor, No Wheezing Cardiovascular: No Murmur, Tachycardia Gastrointestinal: Normal Bowel Sounds, Soft, No Distended, Tenderness ( suprapubic) Extremity: Normal Capillary Refill, Other (excoriations noted on the anterior left guzmán. faint sub-acute ecchymosis on the right lateral lower leg. ) Neurologic/Psychiatric: Alert, Aphasia (expressive aphasia. ), Other (unable to follow commands. gaze and head deviate to the right. rt sided hemiparesis consistent with past history and exams. agitated and anxious.) Skin: Normal Color, Warm/Dry, Other (excoriations noted on the anterior left guzmán. faint sub-acute ecchymosis on the right lateral lower leg. bilateral groin, vulva, and perineum rash consistent with farrukh) Progress/Results/Core Measures Results/Orders Lab Results Laboratory Tests Test 02/15/17 17:10 02/15/17 17:17 02/15/17 17:26 02/15/17 19:17 Range/Units White Blood Count 14.6 H 4.3-11.0 10^3/uL Red Blood Count 4.60 4.35-5.85 10^6/uL Hemoglobin 13.3 11.5-16.0 G/DL Hematocrit 41 35-52 % Mean Corpuscular Volume 90 80-99 FL Mean Corpuscular Hemoglobin 29 25-34 PG Mean Corpuscular Hemoglobin Concent 32 32-36 G/DL Red Cell Distribution Width 16.5 H 10.0-14.5 % Platelet Count 277 130-400 10^3/uL Mean Platelet Volume 12.1 H 7.4-10.4 FL Neutrophils (%) (Auto) 63 42-75 % Lymphocytes (%) (Auto) 22 12-44 % Monocytes (%) (Auto) 11 0-12 % Eosinophils (%) (Auto) 4 0-10 % Basophils (%) (Auto) 0 0-10 % Neutrophils # (Auto) 9.2 H 1.8-7.8 X 10^3 Lymphocytes # (Auto) 3.2 1.0-4.0 X 10^3 Monocytes # (Auto) 1.6 H 0.0-1.0 X 10^3 Eosinophils # (Auto) 0.6 H 0.0-0.3 10^3/uL Basophils # (Auto) 0.0 0.0-0.1 10^3/uL Neutrophils % (Manual) 68 % Lymphocytes % (Manual) 19 % Monocytes % (Manual) 10 % Eosinophils % (Manual) 2 % Basophils % (Manual) 1 % Band Neutrophils 0 % Anisocytosis SLIGHT Spherocytes SLIGHT Sodium Level 142 135-145 MMOL/L Potassium Level 4.2 3.6-5.0 MMOL/L Chloride Level 106 98-107 MMOL/L Carbon Dioxide Level 22 21-32 MMOL/L Anion Gap 14 5-14 MMOL/L Blood Urea Nitrogen 8 7-18 MG/DL Creatinine 0.81 0.60-1.30 MG/DL Estimat Glomerular Filtration Rate > 60 BUN/Creatinine Ratio 10 Glucose Level 133 H 70-105 MG/DL Calcium Level 9.3 8.5-10.1 MG/DL Total Bilirubin 0.8 0.1-1.0 MG/DL Aspartate Amino Transf (AST/SGOT) 27 5-34 U/L Alanine Aminotransferase (ALT/SGPT) 21 0-55 U/L Alkaline Phosphatase 84 40-136 U/L C-Reactive Protein High Sensitivity 2.73 H 0.00-0.50 MG/DL B-Type Natriuretic Peptide 54.3 <100.0 PG/ML Total Protein 7.4 6.4-8.2 G/DL Albumin 3.5 3.2-4.5 G/DL Lactic Acid Level 2.62 *H 1.33 0.50-2.00 MMOL/L Urine Color YELLOW Urine Clarity CLEAR Urine pH 6.5 5-9 Urine Specific [place] 1.015 L 1.016-1.022 Urine Protein 1+ H NEGATIVE Urine Glucose (UA) NEGATIVE NEGATIVE Urine Ketones NEGATIVE NEGATIVE Urine Nitrite NEGATIVE NEGATIVE Urine Bilirubin NEGATIVE NEGATIVE Urine Urobilinogen NORMAL NORMAL MG/DL Urine Leukocyte Esterase 3+ H NEGATIVE Urine RBC (Auto) NEGATIVE NEGATIVE Urine RBC NONE /HPF Urine WBC >100 H /HPF Urine Squamous Epithelial Cells 10-25 H /HPF Urine Crystals NONE /LPF Urine Bacteria FEW H /HPF Urine Casts NONE /LPF Urine Mucus NEGATIVE /LPF Urine Culture Indicated YES Test 02/16/17 03:43 Range/Units White Blood Count 12.5 H 4.3-11.0 10^3/uL Red Blood Count 3.85 L 4.35-5.85 10^6/uL Hemoglobin 10.9 L 11.5-16.0 G/DL Hematocrit 35 35-52 % Mean Corpuscular Volume 91 80-99 FL Mean Corpuscular Hemoglobin 28 25-34 PG Mean Corpuscular Hemoglobin Concent 31 L 32-36 G/DL Red Cell Distribution Width 16.5 H 10.0-14.5 % Platelet Count 199 130-400 10^3/uL Mean Platelet Volume 12.3 H 7.4-10.4 FL Neutrophils (%) (Auto) 69 42-75 % Lymphocytes (%) (Auto) 17 12-44 % Monocytes (%) (Auto) 10 0-12 % Eosinophils (%) (Auto) 5 0-10 % Basophils (%) (Auto) 0 0-10 % Neutrophils # (Auto) 8.6 H 1.8-7.8 X 10^3 Lymphocytes # (Auto) 2.1 1.0-4.0 X 10^3 Monocytes # (Auto) 1.2 H 0.0-1.0 X 10^3 Eosinophils # (Auto) 0.6 H 0.0-0.3 10^3/uL Basophils # (Auto) 0.0 0.0-0.1 10^3/uL Sodium Level 143 135-145 MMOL/L Potassium Level 4.3 3.6-5.0 MMOL/L Chloride Level 109 H 98-107 MMOL/L Carbon Dioxide Level 25 21-32 MMOL/L Anion Gap 9 5-14 MMOL/L Blood Urea Nitrogen 6 L 7-18 MG/DL Creatinine 0.69 0.60-1.30 MG/DL Estimat Glomerular Filtration Rate > 60 BUN/Creatinine Ratio 9 Glucose Level 101 70-105 MG/DL Lactic Acid Level 1.28 0.50-2.00 MMOL/L Calcium Level 8.2 L 8.5-10.1 MG/DL Phosphorus Level 2.9 2.3-4.7 MG/DL Magnesium Level 1.5 L 1.8-2.4 MG/DL Total Bilirubin 1.0 0.1-1.0 MG/DL Aspartate Amino Transf (AST/SGOT) 18 5-34 U/L Alanine Aminotransferase (ALT/SGPT) 13 0-55 U/L Alkaline Phosphatase 69 40-136 U/L C-Reactive Protein High Sensitivity 3.70 H 0.00-0.50 MG/DL Total Protein 6.1 L 6.4-8.2 G/DL Albumin 2.9 L 3.2-4.5 G/DL Micro Results Microbiology 02/15/17 Blood Culture - Preliminary, Resulted No growth 02/15/17 Blood Culture - Preliminary, Resulted No growth 02/15/17 Urine Culture - Preliminary, Resulted Enterococcus Faecalis My Orders Orders - KELVIN STEVENSON Fentanyl Injection (Sublimaze Injection (02/15/17 17:59) Saline Lock/Iv-Start (02/15/17 17:59) Meropenem (Merrem 1000 Mg) (02/15/17 18:00) Fentanyl Injection (Sublimaze Injection (02/15/17 18:00) Ns Iv 1000 Ml (Sodium Chloride 0.9%) (02/15/17 18:11) Lactic Acid Analyzer (02/15/17 18:15) Blood Culture (02/15/17 18:15) O2 (02/15/17 18:15) Ns Iv 1000 Ml (Sodium Chloride 0.9%) (02/15/17 18:15) Remove Rings In Anticipation O (02/15/17 18:15) Morphine Injection (Morphine Injection (02/15/17 18:32) Lorazepam Injection (Ativan Injection) (02/15/17 18:45) Meropenem (Merrem 500 Mg) (02/15/17 18:30) Morphine Injection (Morphine Injection (02/15/17 18:31) Ns (Ivpb) (Sodium Chloride 0.9% Ivpb Bag (02/15/17 18:31) Lorazepam Injection (Ativan Injection) (02/15/17 18:31) Medications Given in ED Vital Signs/I&O Vital Sign - Last 12Hours 02/16/17 02/16/17 02/16/17 02/16/17 11:00 12:30 12:35 12:56 Temp 98.3 Pulse 134 68 130 Resp 14 16 B/P (MAP) 98/84 126/78 Pulse Ox 92 94 O2 Delivery Nasal Cannula Nasal Cannula O2 Flow Rate 4.00 4.00 2.00 02/16/17 02/16/17 02/16/17 02/16/17 15:19 15:26 16:00 17:30 Temp 100.5 101.1 Pulse 75 Resp 16 B/P (MAP) 120/76 Pulse Ox 90 97 O2 Delivery Nasal Cannula O2 Flow Rate 3.00 4.00 2.00 02/16/17 02/16/17 02/16/17 02/16/17 18:00 18:45 19:00 20:00 Temp 100.4 101.0 100.9 Pulse 140 142 Resp 18 B/P (MAP) 142/80 Pulse Ox 95 O2 Delivery Nasal Cannula O2 Flow Rate 2.00 02/16/17 20:00 O2 Flow Rate 4.00 Blood Pressure Mean: 100 Diagnostic Imaging Diagonstic Imaging: CT Plain Films/CT/US/NM/MRI: head Comments FINDINGS: Again noted are generalized atrophic changes with prominence of ventricles and sulci. Rather pronounced diffuse decreased attenuation throughout the white matter. This is most noticeable in the left frontal lobe and extends into the basal ganglia and portions of the temporal lobe. Again, extensive diminished attenuation throughout the white matter is rather pronounced.. Definitive new area of decreased attenuation does not appear to be present. No intracranial hemorrhage. No midline shift or mass effect. Bony calvarium generally stable with slightly demineralized mottled appearance. Paranasal sinuses are clear. Opacification of the mastoid air cells, right greater than left. IMPRESSION: 1. Overall generally stable CT imaging of the head. Rather pronounced chronic encephalomalacia involving the left frontal lobe as well as extensive low attenuation of white matter is again demonstrated. Some areas of edema would be difficult to exclude given the rather pronounced chronic changes. Dictated by: Dictated on workstation # [id number] Reviewed: Reviewed by Me (radiology report reviewed by me) Diagonstic Imaging: Xray Plain Films/CT/US/NM/MRI: chest Comments CORRELATION STUDY: 01/29/2017. FINDINGS: Patient is rotated. Heart size enlarged. Vasculature is increased. The lungs are clear with no consolidating infiltrate. There is no significant effusion or pneumothorax. IMPRESSION: 1. Cardiac enlargement. Vasculature does appear to be slightly more prominent from prior study. Could be reflective of early fluid overload or failure. Prominent interstitial markings may be chronic with superimposed edema not excluded. Dictated by: Dictated on workstation # [id number] Reviewed: Reviewed by Me (radiology report reviewed by me) Departure Communication Time/Spoke to Admitting Phy: 18:[address] Miller accepts patient to Dr. Patino's internal medicine service for IV antibiotics, IV hydration, and further evaluation. Progress Notes All laboratory findings, diagnostic study findings, and plan for admission discussed with the patient's family. Family voices understanding and agrees with the treatment plan. Patient was given fentanyl with minimal improvement in pain. Patient and given 1 mg of Ativan and morphine IV with patient resting comfortably. Patient case discussed with Dr. Flor, he agrees with the plan of care. Impression Impression: Primary Impression: Sepsis Qualified Codes: A41.9 - Sepsis, unspecified organism Additional Impressions: UTI (urinary tract infection) Qualified Codes: N30.00 - Acute cystitis without hematuria Acute bronchitis Qualified Codes: J20.9 - Acute bronchitis, unspecified H/O: CVA (cerebrovascular accident) Disposition: ADMITTED INPATIENT Condition: Stable Decision to Admit Reason: Admit from ER (General) Decision to Admit/Date: Feb 15, 2017 Time/Decision to Admit Time: 18:44 Departure-Patient Inst. Referrals: RIP CARPENTER MD (PCP) Primary Care Physician KELVIN STEVENSON Feb 16, 2017 00:59
[2017-02-16] MEDS ORDERED: LACTATED RINGERS 1,000 ML IV ONE (01:28)
[2017-02-16] MEDS: NS IV 1000 ML 1,000 ML IV SCH (01:37)
[2017-02-16] MEDS: morphine INJ 4 MG/ML 1 ML (VIAL/SYRINGE) IV PRN ×7 (02:31→23:41)
[2017-02-16] MEDS ORDERED: CATHETER FLUSH 10 ML SYR IV PRN (04:00)
[2017-02-16] MEDS: LACTATED RINGERS 1,000 ML IV SCH ×2 (04:14→15:40)
[2017-02-16] MEDS: CATHETER FLUSH 10 ML SYR IV SCH ×3 (04:15→20:06)
[2017-02-16 04:28] LABS: BASOPHILS % (AUTO) 0 % (0-10); EOSINOPHILS # (AUTO) 0.6 10^3/uL (0.0-0.3); EOSINOPHILS % (AUTO) 5 % (0-10); LYMPHOCYTES # (AUTO) 2.1 X 10^3 (1.0-4.0); LYMPHOCYTES % (AUTO) 17 % (12-44); MEAN CORPUSCULAR HEMOGLOBIN 28 PG (25-34); MEAN CORPUSCULAR HGB CONC 31 G/DL (32-36); MEAN CORPUSCULAR VOLUME 91 FL (80-99); MEAN PLATELET VOLUME 12.3 FL (7.4-10.4); MONOCYTES # (AUTO) 1.2 X 10^3 (0.0-1.0); MONOCYTES % (AUTO) 10 % (0-12); NEUTROPHILS # (AUTO) 8.6 X 10^3 (1.8-7.8); NEUTROPHILS % (AUTO) 69 % (42-75); PLATELET COUNT 199 10^3/uL (130-400); RED BLOOD COUNT 3.85 10^6/uL (4.35-5.85); RED CELL DISTRIBUTION WIDTH 16.5 % (10.0-14.5); WHITE BLOOD COUNT 12.5 10^3/uL (4.3-11.0)
[2017-02-16] MEDS: LORazepam INJ 2 MG/ML (ATIVAN) VIAL IV PRN ×3 (04:28→17:08)
[2017-02-16 04:58] LABS: ALANINE AMINOTRANSFERASE 13 U/L (0-55); ALBUMIN 2.9 G/DL (3.2-4.5); ANION GAP 9 MMOL/L (5-14); ASPARTATE AMINO TRANSFERASE 18 U/L (5-34); BLOOD UREA NITROGEN 6 MG/DL (7-18); BUN/CREATININE RATIO 9; CALCIUM 8.2 MG/DL (8.5-10.1); CARBON DIOXIDE 25 MMOL/L (21-32); CHLORIDE 109 MMOL/L (98-107); CREATININE SERUM 0.69 MG/DL (0.60-1.30); GFR ESTIMATED > 60; GLUCOSE 101 MG/DL (70-105); MAGNESIUM 1.5 MG/DL (1.8-2.4); PHOSPHORUS 2.9 MG/DL (2.3-4.7); POTASSIUM 4.3 MMOL/L (3.6-5.0); SODIUM 143 MMOL/L (135-145); TOTAL PROTEIN 6.1 G/DL (6.4-8.2)
[2017-02-16] MEDS ORDERED: KCL 20 MEQ TAB (K-DUR) PO SCH (06:00)
[2017-02-16] MEDS ORDERED: inSUlin (REGULAR) HUMAN 1 UNIT/0.01 ML (CHARGE PER UNIT) SC SCH (06:00)
[2017-02-16] MEDS ORDERED: POTASSIUM CL 10MEQ/50ML IVPB 50 ML IV SCH (06:00)
[2017-02-16] MEDS ORDERED: MAGNESIUM 1 GM/100 ML IVPB 100 ML IV SCH (06:00)
[2017-02-16] MEDS: NYSTATIN CREAM (MYCOSTATIN) 30 GM TUBE TP SCH ×4 (06:20→23:41)
[2017-02-16] MEDS: MAGNESIUM 1 GM/100 ML IVPB 100 ML IV SCH ×2 (06:41→07:40)
[2017-02-16] MEDS ORDERED: RT-ALBUTEROL/IPRATROPIUM 3 ML (DUONEB) VIAL INH SCH (08:00)
--- NOTE | 2017-02-16 08:25 | Diagnostic Imaging Report ---
INDICATION: Sepsis. Comparison made with prior examination 02/15/17. FINDINGS: There is cardiomegaly and some venous congestion. There are bibasilar alveolar infiltrates left greater than right. These are relatively unchanged. There is no pleural effusion or pneumothorax. Mediastinum is unremarkable. IMPRESSION: Bibasilar alveolar infiltrates left greater than right. Cardiomegaly and mild central pulmonary venous congestion. Dictated by: Dictated on workstation # [id number]
--- NOTE | 2017-02-16 10:13 | History & Physical-Hospitalist ---
HPI History of Present Illness: HPI/Chief Complaint 71yoCf with PMH of CVA in and recent ICU admission for pna presented for AMS and was found to have severe sepsis. She is unable to provide any history due to profound dysphasia from his CVA. I called her son who was able to tell me she lives at [facility] due to debility from her CVA. He also states she was admitted 2 weeks ago for a PNA and was treated with abx and recovered well enough to return to her skilled nursing. He was unable to provide other history as he works out of state. I attempted to call her daughter Priscilla who did not answer. I am unable to obtain any other inform aside from what is available in the chart. Source: family, RN notes reviewed, skilled nursing records Exam Limitations: clinical condition Date Seen 02/16/17 Attending Physician Brady Jarrell MD PCP Brady Jarrell MD Referring Physician Date of Admission Feb 15, 2017 at 18:55 Home Medications & Allergies Home Medications Reviewed patient Home Medication Reconciliation Form Allergies Allergies Coded Allergies levofloxacin (Verified Allergy, Mild, 08/14/16) cephalexin (Verified Allergy, Unknown, 08/14/16) menthol (Verified Allergy, Unknown, RASH, 01/26/17) zinc oxide (Unverified Adverse Reaction, Intermediate, 03/22/14) rash-from calmoseptine Past Akyngop-Zdnfid-Mjulgl Hx Patient Social History Alcohol Use: Denies Use Recreational Drug Use: No Smoking Status: Never a Smoker Former smoker/When Quit: February 22, 2009 Physical Abuse Screen: No Sexual Abuse: No Recent Foreign Travel: No Contact w/other who traveled: No Recent Hopitalizations: Yes (01/26/17-PNE/UTI/SEPSIS) Recent Infectious Disease Expo: No Immunizations Up To Date Tetanus Booster (TDap): More than 5yrs Date of Pneumonia Vaccine: March 13, 2013 Date of Influenza Vaccine: Jul 11, 2016 Seasonal Allergies Seasonal Allergies: Yes Surgeries HX Surgeries: Yes (abd adhesion removal surgery, LEFT CAROTID ENDARTERECTOMY) Surgeries: Abdominal, Vascular Surgery Respiratory Hx Respiratory Disorders: Yes Respiratory Disorders: Asthma Cardiovascular Hx Cardiovascular Disorders: Yes (left carotid endarterectomy) Cardiac Disorders: Heart Attack, Hypertension, Peripheral Vascular Neurological Hx Neurological Disorders: Yes Neurological Disorders: Dementia, Stroke (residual rt hemiparesis and expressive aphasia.) Reproductive System : No Hx Reproductive Disorders: No Sexually Transmitted Disease: No HIV/AIDS: No Female Reproductive Disorders: Denies Genitourinary Hx Genitourinary Disorders: Yes (INCONTINENT) Genitourinary Disorders: Bladder Infection, UTI-Chronic Gastrointestinal Hx Gastrointestinal Disorders: Yes (DYSPHAGIA) Gastrointestinal Disorders: Chronic Diarrhea Musculoskeletal Hx Musculoskeletal Disorders: Yes (FALLS, LEFT SIDE WEAKNESS FROM CVA WITH RIGHT ARM/HAND CONTRACTURES) Musculoskeletal Disorders: Arthritis, Chronic Back Pain, Fractures, Contracture Endocrine Hx Endocrine Disorders: Yes Endocrine Disorders: Diabetes, Non-Insulin dep HEENT HX ENT Disorders: Yes (DYSPHAGIA) Loss of Vision: Denies Hearing Impairment: Hard of Hearing Cancer Hx Cancer: No Psychosocial Hx Psychiatric Problems: Yes Behavioral Health Disorders: Depression Integumentary HX Skin/Integumentary Disorder: Yes (SKIN BREAKDOWN TO ORSIO AREA/GROIN/INNER THIGHS/BUTTOCKS) Skin/Integumentary Disorders: Recent Skin Changes Blood Transfusions Hx Blood Disorders: No Reviewed Nursing Assessment Reviewed/Agree w Nursing PMH: Yes Family Medical History Significant Family History: No Pertinent Family Hx Family Hx: Cancer 19 MOTHER Family history: Diabetes mellitus 19 MOTHER Myocardial infarction 19 FATHER No Family History of: Abdominal aortic aneurysm Alcoholism Aphasia Cancer of colon Cataract Chest pain Congenital heart disease Congestive heart failure Cystic fibrosis Dementia Dysphagia Family history: Allergy Family history: Alzheimer's disease Family history: Arthritis Family history: Asthma Family history: Breast disease Family history: Cardiovascular disease Family history: Coronary thrombosis Family history: Gastrointestinal disease Family history: Glaucoma Family history: Hypertension Family history: Osteoporosis Family history: Thyroid disorder Headache Hearing loss Heart disease Hereditary disease History of - anemia History of - disorder History of - respiratory disease History of drug abuse Human immunodeficiency virus (HIV) seropositivity Hypercholesterolemia Infertile Kidney disease Malignant neoplasm of lung Parkinson's disease Prostate cancer Psychotic disorder Seizure disorder Stroke Tuberculosis Visual impairment Review of Systems ROS-Unable to Obtain: Due to Expressive aphasia/dementia Physical Exam Physical Exam Vital Signs Vital Sign - Last 12Hours 02/15/17 02/15/17 17:15 17:28 Temp 99.0 Pulse 127 Resp 20 B/P (MAP) 149/71 Pulse Ox 100 O2 Delivery Nonrebreather O2 Flow Rate 10.00 FiO2 100 Capillary Refill : Less Than 3 Seconds General Appearance: Chronically ill Neck: Supple, No Thyromegaly Respiratory: Chest Non Tender, Lungs Clear, No Respiratory Distress Cardiovascular: Regular Rate, Rhythm, No Edema, No JVD Gastrointestinal: Normal Bowel Sounds, No Distended, No Guarding, No Rebound, Tenderness Extremity: Normal Capillary Refill, Non Tender Neurologic/Psychiatric: Aphasia, Motor Weakness (right sided) Skin: Other (~1cm skin tear on left gluteus with surrounging erythema) Results Results/Procedures Lab Laboratory Tests 02/15/17 17:10 02/16/17 03:43 Radiology CXR 02/16/17 IMPRESSION: Bibasilar alveolar infiltrates left greater than right. Cardiomegaly and mild central pulmonary venous congestion. Assessment/Plan Admission Diagnosis Severe Sepsis Assessment and Plan Sepsis - Lactic acidosis resolved, no long meets severe sepsis criteria - Source UTI vs PNA (though may be resolving pna from previous admission) - Continue on Meropenem, Day #2 - Of note Advance direective requests no further abx - Family present on admission and at last hospitalization and agreed to abx, discussed with son who was unaware of this statement in her AD, attempted to call daughter but no answer - Will continue abx at this time as reasonable and non invasive and had previously agreed to abx but will attempt to contact family further to clarify her wishes - Follow up cultures - Will transfer out of ICU h/o CVA - Will consulte PT/OT - Will resume statin/asa when tolerating PO Tachycardia - Concerned due to pain, will attempt to optimize pain management Pressure ulcers - Zinc allergy so continue barrier cream, frequent position changes Dispo: transfer out of ICU, plan to discuss hospice with family. SW consult. Solange Miller MD Clinical Quality Measures DVT/VTE Risk/Contraindication: Risk Factor Score Per Nursin RFS Level Per Nursing on Admit: 4+=Very High SOLANGE MILLER MD Feb 16, 2017 10:12
[2017-02-16] MEDS: RT-ALBUTEROL/IPRATROPIUM 3 ML (DUONEB) VIAL INH SCH ×3 (10:19→18:41)
[2017-02-16] MEDS ORDERED: meTOprolol TARTRATE 25 MG (LOPRESSOR) TABLET PO SCH (11:14)
[2017-02-16] MEDS ORDERED: RT-ALBUTEROL SULF 2.5 MG/3 ML PRE-MIX VIAL IH PRN (11:15)
[2017-02-16] MEDS ORDERED: ACETAMINOPHEN 650 MG SUPP (TYLENOL) PR ONE (18:00)
[2017-02-17 00:35] VITALS: BP 155/75
[2017-02-17] MEDS: LORazepam INJ 2 MG/ML (ATIVAN) VIAL IV PRN (01:49)
[2017-02-17] MEDS ORDERED: ACETAMINOPHEN 650 MG SUPP (TYLENOL) PR PRN (02:45)
[2017-02-17] MEDS ORDERED: SALIVA STIMULANT MOUTH SPRAY (BIOTENE) 1.5 OZ MM PRN (02:45)
[2017-02-17] MEDS ORDERED: ARTIFICIAL TEARS OINT (LACRI-LUBE) 3.5 GM TUBE OU PRN (02:45)
[2017-02-17] MEDS ORDERED: RT-ALBUTEROL/IPRATROPIUM 3 ML (DUONEB) VIAL INH PRN (02:45)
[2017-02-17] MEDS ORDERED: ONDANSETRON 4 MG/2 ML (SDV) Z0FRAN IVP PRN (02:45)
[2017-02-17] MEDS ORDERED: ARTIFICAL TEARS 0.4 ML UNIT DOSE (REFRESH PLUS) OU PRN (02:45)
[2017-02-17] MEDS ORDERED: BISACODYL 10 MG SUPP (DULCOLAX) PR PRN (02:45)
[2017-02-17] MEDS: LORazepam INJ 2 MG/ML (ATIVAN) VIAL IVP PRN ×6 (02:57→13:33)
[2017-02-17] MEDS: GLYCOPYRROLATE 0.2 MG/ML (ROBINUL) 2 ML VIAL IV PRN ×2 (02:57→13:31)
[2017-02-17] MEDS: morphine INJ 4 MG/ML 1 ML (VIAL/SYRINGE) IVP PRN ×6 (02:58→13:33)
[2017-02-17] MEDS ORDERED: TONIC WATER PO (08:57)
[2017-02-17] MEDS ORDERED: TRIM100T PO (08:57)
[2017-02-17] MEDS ORDERED: LANO250L TP (08:57)
[2017-02-17] MEDS ORDERED: POTA-51 PO (08:57)
[2017-02-17] MEDS ORDERED: IPRA3AMP IH (08:57)
[2017-02-17] MEDS ORDERED: PROM25SU43 RC (08:57)
[2017-02-17] MEDS ORDERED: MENT118G TP (08:57)
--- NOTE | 2017-02-17 09:13 | Speech Therapy Progress Note ---
Therapy Progress Note Speech pathology dysphagia consultation received and chart reviewed. The patient was recently placed on comfort care by her family members. The swallowing consultation is no longer appropriate per RN. The clinician will cancel the consult at this time. Please reconsult Speech Pathology if appropriate. Thank you. DENVER BONILLA February 17, 2017 09:13
[2017-02-17] MEDS ORDERED: LORA2ORA PO (09:15)
[2017-02-17] MEDS ORDERED: MORP100S3 PO (09:15)
--- NOTE | 2017-02-17 09:17 | Discharge Summary-Hospitalist ---
Diagnosis/Chief Complaint Date of Admission Feb 15, 2017 at 18:55 Date of Discharge Discharge Date: February 17, 2017 Admission Diagnosis Severe Sepsis Discharge Diagnosis Severe sepsis with end-of-life status Multisystem organ failure Reason Hospital Visit/Course [id number] with PMH of CVA in and recent ICU admission for pna presented for AMS and was found to have severe sepsis. She is unable to provide any history due to profound dysphasia from his CVA. I called her son who was able to tell me she lives at [facility] due to debility from her CVA. He also states she was admitted 2 weeks ago for a PNA and was treated with abx and recovered well enough to [facility]. He was unable to provide other history as he works out of state. I attempted to call her daughter Priscilla who did not answer. I am unable to obtain any other inform aside from what is available in the chart. Hospital course: Patient had a short hospital course she was originally admitted to the ICU for severe sepsis from pneumonia and multisystem organ failure and just her overall status to begin with was severe dementia and very poor prognosis she escalated and declining rapidly she was placed on comfort care in the middle of the night and family at the bedside all agreed for hospice back to the jail a [facility] primary care provider was updated on this plan. Discharge Summary Discharge Physical Examination Allergies: Coded Allergies: levofloxacin (Verified Allergy, Mild, 08/14/16) cephalexin (Verified Allergy, Unknown, 08/14/16) menthol (Verified Allergy, Unknown, RASH, 01/26/17) zinc oxide (Unverified Adverse Reaction, Intermediate, 03/22/14) rash-from calmoseptine Vitals & I&Os Vital Signs Date Time Temp Pulse Resp B/P (MAP) Pulse Ox O2 Delivery O2 Flow Rate FiO2 02/17/17 01:00 128 02/17/17 00:35 99.3 20 155/75 100 Nasal Cannula 2.00 02/15/17 17:15 100 Hospital Course Labs (last 24 hrs) Microbiology 02/15/17 Blood Culture - Preliminary, Resulted No growth 02/15/17 Urine Culture - Final, Complete Enterococcus Faecalis Discharge Home Medications: Active Scripts Active Lorazepam Intensol (Lorazepam) 2 Mg/1 Ml Oral.conc 1 Mg PO Q3HR PRN Morphine Sulfate Concentrate 20mg/ml (Morphine Sulfate) 100 Mg/5 Ml Solution 5 Mg PO Q2H PRN Reported Iprat-Albut 0.5-3(2.5) mg/3 ml (Ipratropium/Albuterol Sulfate) 3 Ml Ampul.neb 3 Ml IH Q4H Eucerin Original Lotion (Lanolin/Mineral Oil) 250 Ml Lotion TP BID Biofreeze (Menthol) 118 Ml Gel..ml. TP BID Trimethoprim 100 Mg Tablet 100 Mg PO HS [Tonic Water] 4 Oz PO HS Phenergan (Promethazine HCl) 25 Mg Supp.rect 25 Mg RC Q4H PRN Potassium Chloride 20 Meq Tablet.er 20 Meq PO DAILY Ondansetron HCl 4 Mg Tablet 4 Mg PO Q8H PRN Fluticasone Propionate 16 Gm Volcano.susp 1 Volcano NS PRN PRN Breo Ellipta 100-25 Mcg INH (Fluticasone/Vilanterol) 1 Each Blst.w.dev 1 Puff INH DAILY Cranberry-Probiotic Tablet (Cranberry Con&Fr/B.coag/C/Calc) 1 Each Tablet 1 Tab PO BID Baclofen 10 Mg Tablet 10 Mg PO TID Vitamin C (Ascorbate Calcium) 500 Mg Tablet 500 Mg PO DAILY Albuterol Sulfate 2.5 Mg/3 Ml Vial.neb 2.5 Mg IH Q6H PRN Gabapentin 100 Mg Capsule 100 Mg PO HS Pepto-Bismol (Bismuth Subsalicylate) 262 Mg/15 Ml Oral.susp 15 Ml PO Q4H PRN Loperamide (Loperamide HCl) 2 Mg Capsule 2 Mg PO PRN PRN Daily Multiple Vitamin (Multivitamin) 1 Each Tablet 1 Tab PO DAILY Tramadol Hcl 50 Mg Tablet 50 Mg PO 0800,1600 Pain Relief Extra Strength (Acetaminophen) 500 Mg Tablet 1,000 Mg PO TID TAKES 2 (500MG) TABLETS Lopressor 25 Mg Tab (Metoprolol Tartrate) 25 Mg Tablet 25 Mg PO BID HOLD FOR SBP<100 OR DBP<60 Aspirin 325 Mg Tab (Aspirin) 325 Mg Tab 325 Mg PO DAILY Loratadine 10 Mg Tablet 10 Mg PO DAILY Instructions to patient/family Please see electonic discharge instructions given to patient. Clinical Quality Measures DVT/VTE Risk/Contraindication: Risk Factor Score Per Nursin RFS Level Per Nursing on Admit: 4+=Very High NANCY FULLER DO February 17, 2017 09:17
== END 2017-02-17 13:55 | disposition hospice, inpatient (51) | DRG 871 ==
LOC: EDUNIT# 17:04 → ER 17:06 → ICU 18:55 → 4TH 02-16 12:15
PROVIDERS: ADMIT Family Medicine; ATTEND Internal Medicine
DX: A41.9 Sepsis, unspecified organism (principal); R65.20 Severe sepsis without septic shock; N39.0 Urinary tract infection, site not specified; J44.0 Chronic obstructive pulmonary disease with (acute) lower respiratory infection; J20.9 Acute bronchitis, unspecified; J18.9 Pneumonia, unspecified organism; I69.351 Hemiplegia and hemiparesis following cerebral infarction affecting right dominant side; Z66 Do not resuscitate; Z51.5 Encounter for palliative care; B95.2 Enterococcus as the cause of diseases classified elsewhere; J45.909 Unspecified asthma, uncomplicated; I25.2 Old myocardial infarction; I10 Essential (primary) hypertension; E11.51 Type 2 diabetes mellitus with diabetic peripheral angiopathy without gangrene; F03.90 Unspecified dementia, unspecified severity, without behavioral disturbance, psychotic disturbance, mood disturbance, and anxiety; R32 Unspecified urinary incontinence; R13.10 Dysphagia, unspecified; B37.3 Candidiasis of vulva and vagina; B37.2 Candidiasis of skin and nail; I69.320 Aphasia following cerebral infarction; I69.321 Dysphasia following cerebral infarction; I69.398 Other sequelae of cerebral infarction; H51.8 Other specified disorders of binocular movement; K52.9 Noninfective gastroenteritis and colitis, unspecified; F32.9 Major depressive disorder, single episode, unspecified; L89.90 Pressure ulcer of unspecified site, unspecified stage; Z87.01 Personal history of pneumonia (recurrent)
CPT/HCPCS: 36415; 51702; 70450; 71010; 80053; 81000; 83605; 83735; 83880; 84100; 85007; 85025; 85027; 86141; 87040; 87077; 87081; 87088; 87186; 94640; 96365; 96375